=== PATIENT | male | born 1970 | race American Indian/Alaskan Native ===

== ENCOUNTER 2017-01-20 18:21 | Inpatient (IN) | payer OTHER ==
--- NOTE | 2017-01-20 19:00 | ED PDOC ---
Arrival/HPI - General Chief Complaint: Cough, Cold, Congestion Time Seen by Provider: 01/20/17 18:34 Historian: Patient, Family - History of Present Illness Narrative History of Present Illness (Text): 46yoM, who states having nasal congestion, cough w pleghm x2 days, then today with generalized chest pain with cough and now even chest pain without cough. associated sob. associated gradual headache similar to prior. no n/v/dizziness/ abd pain/numbness/tingling/loss of limb function/dysuria. denies HIV history. 01/20/17 18:57 01/20/17 20:11 Past Medical History - Provider Review Nursing Documentation Reviewed: Yes - Travel History Have you recently traveled outside [place] w/in the past 3 mons?: No - Infectious Disease Hx of Infectious Diseases: None - Cardiac Hx Hypertension: Yes - Psychiatric Hx Substance Use: No - Anesthesia Hx Anesthesia Reactions: No Family/Social History Family/Social History: No Known Family HX Smoking Status: Unknown If Ever Smoked Hx Alcohol Use: No Hx Substance Use: No Allergies/Home Meds Allergies/Adverse Reactions: Allergies hydrochlorothiazide Allergy (Verified 01/20/17 18:29) RASH Home Medications: Home Meds Medication Instructions Recorded Confirmed Lisinopril [Zestril] 10 mg PO DAILY 01/20/17 01/20/17 amLODIPine [Norvasc] 10 mg PO DAILY 01/20/17 01/20/17 Review of Systems - Review of Systems Constitutional: Normal Eyes: Normal ENT: Normal Respiratory: SOB, Cough Cardiovascular: Chest Pain Gastrointestinal: Normal Genitourinary Male: Normal Musculoskeletal: Normal Skin: Normal Neurological: Normal Endocrine: Normal Hemo/Lymphatic: Normal Psychiatric: Normal Physical Exam Vital Signs Reviewed: Yes Vital Signs Temp Pulse Resp BP Pulse Ox 01/20/17 20:46 115 H 23 186/120 H 91 L 01/20/17 18:28 98.2 F 100 H 18 202/140 H 90 L Temperature: Afebrile Blood Pressure: Hypertensive Pulse: Tachycardic Appearance: Positive for: Ill-Appearing Pain Distress: Mild Mental Status: Positive for: Alert and Oriented X 3 - Systems Exam Head: Present: Atraumatic Pupils: Present: PERRL Extroacular Muscles: Present: EOMI Conjunctiva: Present: Normal Ears: Present: Normal Mouth: Present: Moist Mucous Membranes Pharnyx: Present: Normal Nose (External): Present: Atraumatic Nose (Internal): Present: Normal Inspection, Clear Mucous Neck: Present: Normal Range of Motion Respiratory/Chest: Present: Good Air Exchange, Respiratory Distress Cardiovascular: Present: Regular Rate and Rhythm Abdomen: No: Tenderness, Distention, Normal Bowel Sounds, Peritoneal Signs, Rebound, Guarding, McBurney's Point Tender, Rovsing's Sign Present, Hernias, Feeding Tubes, Ostomy Tubes, Mass/Organomegaly, Scars, Other Back: Present: Normal Inspection Upper Extremity: Present: Normal Inspection Lower Extremity: Present: Normal Inspection Neurological: Present: GCS=15, CN II-XII Intact, Speech Normal, Motor Func Grossly Intact Skin: Present: Warm, Normal Color Psychiatric: Present: Alert, Oriented x 3, Normal Insight, Normal Concentration Medical Decision Making ED Course and Treatment: 01/20/17 19:31 46yoM, with right lung opacity and left lung vascular markings. sat 90% lactate 2.0 ECG: sinus tachycardia with PVCs, LVH and reviewed w Dr. Velez who agreed to acute sign of ST elevation. sepsis bundle zosyn/levaquin/lactated ringers 01/20/17 19:33 01/20/17 20:06 potassium 2.6 and potassium and magnesium given 01/20/17 20:19 trop 0.14 asprin 324mg 01/20/17 20:35 d/w Dr. Velez cardiology regarding 2900 bnp, trop 0.14, wbc 15.9, elevated LDH, and he stated asprin, plavix and full dose lovenox. he stated lvh strain related troponemia, with sepsis pneumonia - can admit with hospitalist, lasix as needed as pt is getting ivf hydration due to sepsis and cardiology consult. 01/20/17 20:42 pt sat's 90s and will trial bipap 01/20/17 21:27 CXR VRAD: b/l opacities/pneumonia. 01/20/17 21:28 pt improved on bipap. 01/20/17 21:50 d/w with medicine team - pt with sepsis related pneumonia, pt still with significant htn 210 systolic and arroyo tylenol given and will do ct head prior to further anticoagulation full dose lovenox and dose plavix. medicine team will fu on ct head/anticoagulation. 01/20/17 21:56 - Lab Interpretations Lab Results: 01/20/17 19:00 01/20/17 19:00 Lab Results 01/20/17 19:37: Urine Color Light yellow, Urine Appearance Clear, Urine pH 7.5, Ur Specific [place] 1.015, Urine Protein 30 H, Urine Glucose (UA) Negative, Urine Ketones Negative, Urine Blood Trace-lysed H, Urine Nitrate Negative, Urine Bilirubin Negative, Urine Urobilinogen 0.2, Ur Leukocyte Esterase Negative , Urine RBC 0 - 2, Urine WBC Negative, Ur Epithelial Cells 0 - 2, Urine Bacteria Neg 01/20/17 19:00: Influenza Typ A,B (EIA) Negative for flu a/b 01/20/17 19:00: Sodium 139, Chloride 98, Potassium 2.6 L*, Carbon Dioxide 30, Anion Gap 14, BUN 23 H, Creatinine 1.5, Est GFR ( Amer) > 60, Est GFR ( Non-Af Amer) 50, Random Glucose 111 H, Calcium 9.3, Magnesium 1.7, Total Bilirubin 0.8, AST 40, ALT 41, Alkaline Phosphatase 83, Lactate Dehydrogenase 810 H, Total Creatine Kinase 379 H, CK-MB (CK-2) 1.7, CK-MB (CK-2) % Cancelled, Troponin I 0.14 H*, NT-Pro-B Natriuret Pep 2960 H, Total Protein 7.4, Albumin 4.1, Globulin 3.3, Albumin/Globulin Ratio 1.2 01/20/17 19:00: PT 12.1, INR 1.11 H, APTT 28.5 01/20/17 19:00: WBC 15.9 H, RBC 5.02, Hgb 14.0, Hct 41.4 L, MCV 82.5, MCH 27.9, MCHC 33.8, RDW 14.8 H, Plt Count 119 L, Gran % 79.0 H, Lymph % (Auto) 13.2 L, [place] % (Auto) 6.9 H, Eos % (Auto) 0.6 L, Baso % (Auto) 0.3, Gran # 12.59 H, Lymph # 2.1, [place] # 1.1 H, Eos # 0.1, Baso # 0.05 01/20/17 18:59: pO2 43, VBG pH 7.46 H, VBG pCO2 49.0, VBG HCO3 34.8 H, VBG Total CO2 36.3 H, VBG O2 Sat (Calc) 83.4 H, VBG Base Excess 9.4 H, VBG Potassium 2.4 L*, Sodium 139.0, Chloride 98.0, Glucose 112 H, Lactate 2.0, FiO2 21.0, Venous Blood Potassium 2.4 L* - RAD Interpretation Narrative RAD Interpretations (Text): CXR with right lung opacity and left lung markings. 01/20/17 19:34 Radiology Orders: 01/20/17 18:54 CHEST ONE VIEW [RAD] Stat 01/20/17 18:56 CHEST PORTABLE [RAD] Stat 01/20/17 21:49 HEAD W/O CONTRAST [CT] Stat Coil Winding Supervisor: ED Physician - EKG Interpretation EKG Interpretation (Text): 01/20/17 19:34 ECG: sinus tachycardia with PVCs, LVH and reviewed w Dr. Velez who agreed to acute sign of ST elevation. Interpreted by ED Physician: Yes - Medication Orders Current Medication Orders: Lactated Ringer's (Lactated Ringer's) 1,000 mls @ 999 mls/hr IV .Q1H1M MADELEINE Last Admin: 01/20/17 19:46 Dose: Discontinued Medications Acetaminophen (Tylenol 325mg Tab) 975 mg PO STAT STA Stop: 01/20/17 20:10 Last Admin: 01/20/17 20:18 Dose: 975 mg MAR Pain/Vitals Document 01/20/17 20:18 SE (Rec: 01/20/17 20:18 [id number]) Pain Reassessment Is This A Pain ReAssessment? No Sleep Is patient sleeping during reassessment? No Presence of Pain Presence of Pain Yes Pain Scale Used Pain Scale Used Numeric Location Pain Location Body Offset Printer Albuterol/Ipratropium (Duoneb 3 Mg/0.5 Mg (3 Ml) Ud) 3 ml IH STAT STA Stop: 01/20/17 20:11 Last Admin: 01/20/17 20:19 Dose: 3 ml Aspirin (Aspirin Chewable) 324 mg PO STAT STA Stop: 01/20/17 20:17 Last Admin: 01/20/17 20:25 Dose: 324 mg Piperacillin Sod/Tazobactam Sod (Zosyn 4.5 Gm In Ns 100ml) 4.5 gm in 100 mls @ 200 mls/hr IVPB STAT STA PRN Reason: Protocol Stop: 01/20/17 19:58 Last Admin: 01/20/17 19:40 Dose: 200 mls/hr eMAR Start Stop Document 01/20/17 19:40 SE (Rec: 01/20/17 19:40 SE [id number]) Intravenous Solution Start Date 01/20/17 Start Time 19:40 End Date 01/20/17 End time 20:10 Total Infusion Time 30 Sodium Chloride (Sodium Chloride 0.9%) 1,000 mls @ 999 mls/hr IV .Q1H1M STA Stop: 01/20/17 20:47 Last Admin: 01/20/17 19:48 Dose: 999 mls/hr eMAR Start Stop Document 01/20/17 19:48 SE (Rec: 01/20/17 19:48 SE [id number]) Intravenous Solution Start Date 01/20/17 Start Time 19:48 Magnesium Sulfate/Dextrose (Magnesium Sulfate 1 Gm/100 Ml D5w) 1 gm in 100 mls @ 100 mls/hr IVPB ONCE ONE Stop: 01/20/17 21:04 Last Admin: 01/20/17 20:19 Dose: 100 mls/hr eMAR Start Stop Document 01/20/17 20:19 SE (Rec: 01/20/17 20:19 SE [id number]) Intravenous Solution Start Date 01/20/17 Start Time 20:19 Levofloxacin/Dextrose (Levaquin 750mg) 750 mg IVPB ONCE ONE Stop: 01/20/17 19:30 Last Admin: 01/20/17 21:01 Dose: 750 mg Comments: [facility] Start Stop Document 01/20/17 21:01 SE (Rec: 01/20/17 21:02 SE [id number]) Intravenous Solution Start Date 01/20/17 Start Time 21:02 Potassium Chloride (K-Dur 20 Meq Er Tab) 40 meq PO STAT STA Stop: 01/20/17 20:06 Last Admin: 01/20/17 20:18 Dose: 40 meq Disposition/Present on Arrival - Present on Arrival Any Indicators Present on Arrival: Yes History of DVT/PE: No History of Uncontrolled Diabetes: No Urinary Catheter: No History of Decub. Ulcer: No History Surgical Site Infection Following: None - Disposition Have Diagnosis and Disposition been Completed?: Yes Diagnosis: Sepsis due to pneumonia Disposition: HOSPITALIZED Disposition Time: 22:00 Patient Plan: Admission, Telemetry Condition: SERIOUS Discharge Instructions (ExitCare): Sepsis (ED) Forms: Measy (Iranian)
[2017-01-20 19:27] LABS: VENOUS BLOOD GAS BASE EXCESS 9.4 mmol/L (0.0-2.0); VENOUS BLOOD PH 7.46 (7.32-7.43)
[2017-01-20] MEDS ORDERED: Piperacill/Tazo 4.5gm in NS 4.5 GM/100 ML BAG IVPB STA (19:29)
[2017-01-20] MEDS ORDERED: Lactated Ringer's 1,000 ML IV SCH (19:30)
[2017-01-20 19:33] LABS: BASO # 0.05 K/mm3 (0.0-2.0); BASO % 0.3 % (0.0-3.0); EOS # 0.1 (0.0-0.7); EOS % 0.6 % (1.5-5.0); GRAN # 12.59 (1.4-6.5); HEMATOCRIT 41.4 % (42.0-52.0); LYMPH # 2.1 (1.2-3.4); LYMPH % 13.2 % (22.0-35.0); MEAN CELL VOLUME 82.5 fl (80.0-105.0); MEAN CORPUSCULAR HEMOGLOBIN 27.9 pg (25.0-35.0); MEAN CORPUSCULAR HGB CONC 33.8 g/dl (31.0-37.0); MONO # 1.1 (0.1-0.6); MONO % 6.9 % (1.0-6.0); PLATELET COUNT 119 10^3/uL (120.0-450.0); RED CELL DISTRIBUTION WIDTH 14.8 % (11.5-14.5); WHITE BLOOD COUNT 15.9 10^3/ul (4.5-11.0)
[2017-01-20 19:40] LABS: INR 1.11 (0.93-1.08); PARTIAL THROMBOPLASTIN TIME 28.5 Seconds (25.1-36.5)
[2017-01-20 19:47] LABS: PH,URINE 7.5 (4.7-8.0); URINE BILIRUBIN NEGATIVE (NEGATIVE); URINE BLOOD TRACE-LYSED (NEGATIVE); URINE GLUCOSE (UA) NEGATIVE (NEGATIVE); URINE KETONE NEGATIVE (NEGATIVE); URINE LEUKOCYTE ESTERASE NEGATIVE Leu/uL (NEGATIVE); URINE PROTEIN 30 mg/dL (<30 mg/dL); URINE UROBILINOGEN 0.2 E.U./dL (<1 E.U./dL)
[2017-01-20] MEDS ORDERED: Sodium Chloride 0.9% 1,000 ML IV STA (19:47)
[2017-01-20 19:53] LABS: ALB/GLOB RATIO 1.2 (1.1-1.8); ALKALINE PHOSPHATASE 83 U/L (38-126); ALT/SGPT 41 U/L (7-56); AST/SGOT 40 U/L (17-59); BILIRUBIN,TOTAL 0.8 mg/dL (0.2-1.3); BLOOD UREA NITROGEN 23 mg/dL (7-21); CALCIUM 9.3 mg/dL (8.4-10.5); CARBON DIOXIDE 30 mmol/L (21-33); CHLORIDE 98 mmol/L (98-107); GFR AFRICAN-AMERICAN > 60; GLUCOSE,RANDOM 111 mg/dL (70-110); MAGNESIUM 1.7 mg/dL (1.7-2.2); POTASSIUM 2.6 mmol/L (3.6-5.0); SODIUM 139 mmol/L (132-148); TOTAL PROTEIN 7.4 g/dL (5.8-8.3)
[2017-01-20 19:55] LABS: URINE APPEARANCE CLEAR (CLEAR); URINE COLOR LIGHT YELLOW (YELLOW)
[2017-01-20 19:57] LABS: URINE BACTERIA NEG (NEG); URINE EPITHELIAL CELLS 0 - 2 /hpf (0-5); URINE RBC 0 - 2 /hpf (0-2); URINE WBC NEGATIVE /hpf (0-6)
[2017-01-20] MEDS ORDERED: Magnesium Sulfate 1 gm in D5W 1 GM/100 ML BAG IVPB ONE (20:05)
[2017-01-20] MEDS ORDERED: Potassium Chloride 20 mEq ER Tab PO STA (20:05)
[2017-01-20] MEDS ORDERED: Albuterol-Ipratrop 3 mg / 0.5 (3 ml) UD IH STA (20:10)
[2017-01-20 20:14] LABS: TROPONIN I 0.14 ng/mL
[2017-01-20] MEDS: levoFLOXacin 750 mg in D5W 150 ML BAG IVPB ONE ×2 (20:26→21:01)
--- NOTE | 2017-01-20 20:55 | RAD ---
EXAM: XR Chest, 2 Views CLINICAL HISTORY: 46 years old, male; Signs and symptoms; Cough; Symptoms not specified; Additional info: 46yom, with chest pain TECHNIQUE: Frontal and lateral views of the chest. COMPARISON: No relevant prior studies available. FINDINGS: Limitations: Radiographic technique - mild. Lungs: Extensive alveolar opacities within lung bases. Pleural space: No definite pleural effusion. No pneumothorax. Heart: Mild cardiomegaly. Mediastinum: Prominence of central pulmonary vasculature. Bones/joints: No acute fracture. Tubes, lines and devices: Leads overlying chest. IMPRESSION: 1. Bibasilar opacities. DDX: Pneumonia, aspiration, hemorrhage, dependent edema. Clinical correlation is needed.
--- NOTE | 2017-01-20 22:21 | CP.PCM.HP ---
<Lino Mcclain - Last Filed: 01/20/17 21:57> History of Present Illness - History of Present Illness History of Present Illness: CC: cough with chest pain Subjective: HPI: Patient is a 46yo male who presents to the emergency department via EMS for evaluation and treatment of nasal congestion, production cough with pleghm which began 2 days ago without any provoking event. Symptoms worsened since onset despite OTC mucinex. Devleloped generalized, nonradiating chest pain with cough and associated sob. Also admits to gradual headache localized to the crown , rated 8/10, dull in nature. States that he experiences these headaches similar in the past. Denies sick contacts. Traveled from [place] for work 2 weeks ago. Forgot antihypertensive meds at home and has not taken them since arriving to [place]. Patient denies fever, chills, dizziness, blurry vision , ringing in the ears, abdominal pain, nausea, vomiting, diarrhea, constipation , and urinary symptoms. ROS: 12 point review of systems negative except as indicated in HPI PMHx: hypertension PSHx: none Family Hx: mother- breast cancer, father- "throat cancer" Social Hx: social ETOH use, former tobacco use quit 20 years ago smoked 1/2 ppd for years, former illicit drug use- marijuana and cocaine in the 1980s quit since then Medications: lisinopril and amlodipine PMD: from [facility] does not have local PMD Pharmacy: from [facility] does not have local pharmacy Physical Examination: - Constitutional Appears: Non-toxic, No Acute Distress - Head Exam Head Exam: atraumatic, normocephalic - Eye Exam Eye Exam: Normal appearance, PERRL. absent: Scleral icterus - ENT Exam ENT Exam: Mucous Membranes Moist - Neck Exam Neck exam: indentation from pervious trachestomy - Respiratory Exam Respiratory Exam: Normal Breathing Pattern, bibasilar crackles - Cardiovascular Exam Cardiovascular Exam: tachycardic, +S1, +S2. absent: Gallop, JVD - GI/Abdominal Exam GI & Abdominal Exam: Normal Bowel Sounds, absent: Distended, Guarding, Pulsatile Mass, Rebound, Rigid - Extremities Exam Extremities exam: no edema; Negative for: calf tenderness - Neurological Exam Neurological exam: Patient is awake, alert, responds to verbal stimuli, answers questions appropriately, follows commands, and moves extremities past midline - Psychiatric Exam Psychiatric exam: Normal Affect, Normal Mood - Skin Skin Exam: warm and dry Assessment and Plan: Patient is a 46yo male who presents to the emergency department via EMS for evaluation and treatment of nasal congestion, production cough with pleghm which began 2 days ago without any provoking event. Hypertensive Emergency - BP and HR reviewed, trended, and appreciated - patient started on cardene drip, goal is reduce BP by 25% in the first 6 hours , lower limit SBP 160mmHG Chest Pain - rule out ACS - EKG reviewed and appreciated - t wave inversions in the lateral leads - cardiac enzymes q8h x 3, first troponins are 0.14- as per ED physician Dr. Velez was contacted to review patient EKG- the abnormality in the precordial leads is secondary to ventricular strain in the setting of sepsis - lipid profile and A1C pending - ECHO pending - cardiology consulted- appreciate recommendations-as per ED physician Dr. Velez recommended full dose aspirin (given in ED), full dose plavix, and therapuetic lovenox- plavix and lovenox to be given in CT head comes back negative Sepsis; Pneumonia - greater than 2/4 SIRS criteria met in setting of infectious source ( elevated WBC and HR > 90) - CXR- showing bibasilar opacity - blood cultures x 2 - sputum culture - atypicals ordered- strep pneumonia, mycoplasma, and legionella - levaquin and zosyn given in ED, will start patient on doxy and ceftriaxone for CAP coverage - 1 liter NS and 1 Liter LR given in ED, no need for maintanience fluids at this time (elevated BNP taken into account and elevated BP taken into account) - infectious disease consulted- appreciate recommendations Headache - 2/2 elevated BP - prn tylenol ordered - head CT- no acute intracranial abnormalities MARY - BUN and creatinine noted and appreciated - likely 2/2 hypertensive state - no IVF at this time- will monitor closely - consider nephrology consult pending patients clinical course Electrolyte Abnormality - hypokalemia- repleted and monitor closely via CMP - mag ordered Prophylaxis - DVT ppx- patient is on lovenox - GI ppx- famotidine Patient case discussed with and plan approved by attending physician. 01/20/17 21:57 Present on Admission - Present on Admission Any Indicators Present on Admission: No Past Patient History - Infectious Disease Hx of Infectious Diseases: None - Past Social History Smoking Status: Unknown If Ever Smoked - CARDIAC Hx Hypertension: Yes - PSYCHIATRIC Hx Substance Use: No - SURGICAL HISTORY Hx Surgeries: No - ANESTHESIA Hx Anesthesia Reactions: No Meds Allergies/Adverse Reactions: Allergies Allergy/AdvReac Type Severity Reaction Status Date / Time hydrochlorothiazide Allergy RASH Verified 01/20/17 18:29 Results - Vital Signs Recent Vital Signs: Last Vital Signs Temp 98.2 F 01/20/17 18:28 Pulse 115 H 01/20/17 20:46 Resp 23 01/20/17 20:46 BP 186/120 H 01/20/17 20:46 Pulse Ox 91 L 01/20/17 20:46 - Labs Result Diagrams: 01/20/17 19:00 01/20/17 19:00 Labs: Laboratory Results - last 24 hr 01/20/17 01/20/17 01/20/17 18:59 19:00 19:00 WBC 15.9 H RBC 5.02 Hgb 14.0 Hct 41.4 L MCV 82.5 MCH 27.9 MCHC 33.8 RDW 14.8 H Plt Count 119 L Gran % 79.0 H Lymph % (Auto) 13.2 L [place] % (Auto) 6.9 H Eos % (Auto) 0.6 L Baso % (Auto) 0.3 Gran # 12.59 H Lymph # 2.1 [place] # 1.1 H Eos # 0.1 Baso # 0.05 PT 12.1 INR 1.11 H APTT 28.5 pO2 43 VBG pH 7.46 H VBG pCO2 49.0 VBG HCO3 34.8 H VBG Total CO2 36.3 H VBG O2 Sat (Calc) 83.4 H VBG Base Excess 9.4 H VBG Potassium 2.4 L* Sodium 139.0 Chloride 98.0 Glucose 112 H Lactate 2.0 FiO2 21.0 Potassium Carbon Dioxide Anion Gap BUN Creatinine Est GFR ( Amer) Est GFR (Non-Af Amer) Random Glucose Calcium Magnesium Total Bilirubin AST ALT Alkaline Phosphatase Lactate Dehydrogenase Total Creatine Kinase CK-MB (CK-2) CK-MB (CK-2) % Troponin I NT-Pro-B Natriuret Pep Total Protein Albumin Globulin Albumin/Globulin Ratio Venous Blood Potassium 2.4 L* Urine Color Urine Appearance Urine pH Ur Specific [place] Urine Protein Urine Glucose (UA) Urine Ketones Urine Blood Urine Nitrate Urine Bilirubin Urine Urobilinogen Ur Leukocyte Esterase Urine RBC Urine WBC Ur Epithelial Cells Urine Bacteria Influenza Typ A,B (EIA) 01/20/17 01/20/17 01/20/17 19:00 19:00 19:37 WBC RBC Hgb Hct MCV MCH MCHC RDW Plt Count Gran % Lymph % (Auto) [place] % (Auto) Eos % (Auto) Baso % (Auto) Gran # Lymph # [place] # Eos # Baso # PT INR APTT pO2 VBG pH VBG pCO2 VBG HCO3 VBG Total CO2 VBG O2 Sat (Calc) VBG Base Excess VBG Potassium Sodium 139 Chloride 98 Glucose Lactate FiO2 Potassium 2.6 L* Carbon Dioxide 30 Anion Gap 14 BUN 23 H Creatinine 1.5 Est GFR ( Amer) > 60 Est GFR (Non-Af Amer) 50 Random Glucose 111 H Calcium 9.3 Magnesium 1.7 Total Bilirubin 0.8 AST 40 ALT 41 Alkaline Phosphatase 83 Lactate Dehydrogenase 810 H Total Creatine Kinase 379 H CK-MB (CK-2) 1.7 CK-MB (CK-2) % Cancelled Troponin I 0.14 H* NT-Pro-B Natriuret Pep 2960 H Total Protein 7.4 Albumin 4.1 Globulin 3.3 Albumin/Globulin Ratio 1.2 Venous Blood Potassium Urine Color Light yellow Urine Appearance Clear Urine pH 7.5 Ur Specific [place] 1.015 Urine Protein 30 H Urine Glucose (UA) Negative Urine Ketones Negative Urine Blood Trace-lysed H Urine Nitrate Negative Urine Bilirubin Negative Urine Urobilinogen 0.2 Ur Leukocyte Esterase Negative Urine RBC 0 - 2 Urine WBC Negative Ur Epithelial Cells 0 - 2 Urine Bacteria Neg Influenza Typ A,B (EIA) Negative for flu a/b <Remi Dolan Q - Last Filed: 01/21/17 06:03> Results - Vital Signs Recent Vital Signs: Last Vital Signs Temp 99.4 F 01/21/17 04:00 Pulse 88 01/21/17 04:50 Resp 22 01/21/17 04:50 BP 149/97 H 01/21/17 04:00 Pulse Ox 97 01/21/17 04:50 - Labs Result Diagrams: 01/20/17 19:00 01/20/17 19:00 Labs: Laboratory Results - last 24 hr 01/20/17 01/21/17 23:30 01:15 pO2 224 H VBG pH 7.49 H VBG pCO2 41.0 VBG HCO3 31.2 H VBG Total CO2 32.5 H VBG O2 Sat (Calc) 100.0 H VBG Base Excess 7.2 H VBG Potassium 2.3 L* Sodium 138.0 Chloride 102.0 Glucose 114 H Lactate 1.5 FiO2 21.0 Lactate Dehydrogenase 616 Total Creatine Kinase 347 H CK-MB (CK-2) 1.3 CK-MB (CK-2) % Cancelled Troponin I 0.17 H* D Venous Blood Potassium 2.3 L* Attending/Attestation - Attestation I have personally seen and examined this patient.: Yes I have fully participated in the care of the patient.: Yes I have reviewed all pertinent clinical information: Yes Notes (Text): 01/21/17 05:57 I agree with the above mentioned note and exam by the resident with the addition /exception of the followin46 y/o male with a PMHx Htn presents to the ED with the complaint of 2-3 days of cold-like symptoms which have led to a worsening headache today. Patient found to be in hypertensive urgency/emergency as well as sepsis secondary to CAP. Admitted to the ICU for close blood pressure monitoring while on a cardene drip, IV Abx with a workup for pneumonia. Patient was also treated aggressively in the ED with IVF, as a possible code sepsis patient. Elevated trop levels with asymetric inverted T-waves on EKG showing strain pattern; Cardiology on board recommending TAC. Patient was also initially placed on Bipap in the ED, however was able to tolerate nasal cannula after our examination. case discussed at length with Dr. Rosario in the ED labs and images available to me reviewed total time of care: 50 minutes
--- NOTE | 2017-01-20 22:24 | CT ---
EXAM: CT Head Without Intravenous Contrast CLINICAL HISTORY: 46 years old, male; Pain; Headache; Tension; Additional info: 46yom, C/O of headache. TECHNIQUE: Axial computed tomography images of the head/brain without intravenous contrast. All CT scans at this facility use one or more dose reduction techniques, viz.: automated exposure control; ma/kV adjustment per patient size (including targeted exams where dose is matched to indication; i.e. head); or iterative reconstruction technique. COMPARISON: No relevant prior studies available. FINDINGS: Brain: No intracranial hemorrhage. No mass. No definite edema. Ventricles: No hydrocephalus. Bones/joints: No acute fracture. Soft tissues: Unremarkable. Sinuses: Scattered minimal mucosal thickening. Mastoid air cells: No mastoid effusion. Orbits: Unremarkable as visualized. IMPRESSION: 1. No acute intracranial abnormality. 2. Incidental/non-acute findings are described above.
[2017-01-20] MEDS ORDERED: Enoxaparin 80 mg Syringe SC STA (23:08)
[2017-01-20] MEDS: Nicardipine 20 MG/200 ML 20 MG/200 ML BAG IV PRN (23:09)
[2017-01-20 23:22] LABS: CHOLESTEROL 186 mg/dL (130-200)
[2017-01-20] MEDS ORDERED: Potassium Chloride 40 mEq/30 ml LIQ UD PO ONE (23:23)
[2017-01-20 23:44] LABS: VENOUS BLOOD GAS BASE EXCESS 7.2 mmol/L (0.0-2.0); VENOUS BLOOD PH 7.49 (7.32-7.43)
[2017-01-21 01:40] VITALS: BMI 25.7
[2017-01-21 01:56] LABS: TROPONIN I 0.17 ng/mL
[2017-01-21] MEDS: Nicardipine 20 MG/200 ML 20 MG/200 ML BAG IV PRN (03:00)
[2017-01-21 06:04] LABS: BASO # 0.02 K/mm3 (0.0-2.0); BASO % 0.2 % (0.0-3.0); EOS % 0.2 % (1.5-5.0); GRAN # 9.61 (1.4-6.5); GRAN % 75.5 % (50.0-68.0); HEMATOCRIT 39.2 % (42.0-52.0); LYMPH # 2.1 (1.2-3.4); LYMPH % 16.6 % (22.0-35.0); MEAN CELL VOLUME 82.2 fl (80.0-105.0); MEAN CORPUSCULAR HEMOGLOBIN 28.1 pg (25.0-35.0); MEAN CORPUSCULAR HGB CONC 34.2 g/dl (31.0-37.0); MONO % 7.5 % (1.0-6.0); PLATELET COUNT 128 10^3/uL (120.0-450.0); RED CELL DISTRIBUTION WIDTH 14.9 % (11.5-14.5); WHITE BLOOD COUNT 12.7 10^3/ul (4.5-11.0)
[2017-01-21] MEDS ORDERED: Vancomycin 1gm in NS 250ml 1 GM/250 ML BAG IVPB STA (06:44)
[2017-01-21 06:57] LABS: ALB/GLOB RATIO 1.2 (1.1-1.8); ALKALINE PHOSPHATASE 80 U/L (38-126); ALT/SGPT 29 U/L (7-56); AST/SGOT 27 U/L (17-59); BLOOD UREA NITROGEN 17 mg/dL (7-21); CALCIUM 8.6 mg/dL (8.4-10.5); CARBON DIOXIDE 30 mmol/L (21-33); CHLORIDE 101 mmol/L (98-107); GFR AFRICAN-AMERICAN > 60; GLUCOSE,RANDOM 117 mg/dL (70-110); MAGNESIUM 1.9 mg/dL (1.7-2.2); POTASSIUM 2.5 mmol/L (3.6-5.0); SODIUM 138 mmol/L (132-148); TOTAL PROTEIN 6.9 g/dL (5.8-8.3); TROPONIN I 0.13 ng/mL
--- NOTE | 2017-01-21 07:15 | CP.CCUPN ---
<Noam Yungy - Last Filed: 01/21/17 11:59> CCU Subjective - Physician Review Subjective (Free Text): Critical Care Progress Note for Dr. Vázquez Patient seen and examined at bedside. No acute overnight. Patient is doing well. Eating heart healthy diet this morning. Patient complaining of dry throat and dry cough on deep inhalation. Patient denies fever/chills, nausea/vomiting, chest pain, shortness of breath, abdominal pain. CCU Objective - Vital Signs / Intake & Output Vital Signs (Last 4 hours): Vital Signs Temp Pulse Resp BP Pulse Ox 01/21/17 07:00 88 24 149/98 H 93 L 01/21/17 06:50 94 H 20 93 L 01/21/17 06:40 91 H 23 93 L 01/21/17 06:30 90 21 94 L 01/21/17 06:20 89 20 97 01/21/17 06:10 94 H 29 H 92 L 01/21/17 06:00 93 H 25 H 150/75 93 L 01/21/17 05:50 87 29 H 94 L 01/21/17 05:40 88 25 H 95 01/21/17 05:30 90 25 H 93 L 01/21/17 05:20 91 H 21 94 L 01/21/17 05:10 91 H 26 H 96 01/21/17 05:00 90 153/108 H 96 01/21/17 04:50 88 22 97 01/21/17 04:40 88 27 H 98 01/21/17 04:30 89 23 96 01/21/17 04:20 90 19 97 01/21/17 04:10 88 26 H 95 01/21/17 04:00 99.4 F 88 25 H 149/97 H 94 L 01/21/17 03:50 87 25 H 94 L 01/21/17 03:40 91 H 25 H 95 01/21/17 03:30 91 H 23 96 01/21/17 03:20 91 H 23 96 Intake and Output (Last 8hrs): Intake & Output 01/20/17 01/21/17 01/21/17 22:59 06:59 14:59 Intake Total 200 1510 Output Total 1100 Balance 200 410 Weight 174 lb 1.6 oz 174 lb 9.6 oz Intake: IV 200 1360 Left Forearm 1360 Oral 150 Output: Urine 1100 Urine, Voided 1100 Other: # Bowel Movements 0 - Physical Exam Physical Exam Limitations: Negative for: Altered Mental Status Head: Positive for: Atraumatic, Normocephalic Pupils: Positive for: PERRL Extroacular Muscles: Positive for: EOMI Conjunctiva: Positive for: Normal Ears: Positive for: Normal Pharnyx: Positive for: Normal Nose (External): Positive for: Atraumatic Nose (Internal): Positive for: Normal Inspection, Clear Mucous Neck: Positive for: Normal Range of Motion Respiratory/Chest: Positive for: Good Air Exchange, Respiratory Distress Cardiovascular: Positive for: Regular Rate and Rhythm, Normal S1, S2 Abdomen: Negative for: Tenderness, Distention, Normal Bowel Sounds, Peritoneal Signs, Rebound, Guarding, McBurney's Point Tender, Rovsing's Sign Present, Hernias, Feeding Tubes, Ostomy Tubes, Mass/Organomegaly, Scars, Other Back: Positive for: Normal Inspection Upper Extremity: Positive for: Normal Inspection. Negative for: Cyanosis Lower Extremity: Positive for: Normal Inspection. Negative for: Edema, CALF TENDERNESS Neurological: Positive for: GCS=15, CN II-XII Intact, Speech Normal, Motor Func Grossly Intact Skin: Positive for: Warm, Normal Color Psychiatric: Positive for: Alert, Oriented x 3, Normal Insight, Normal Concentration - Medications Active Medications: Active Medications Generic Name Dose Route Start Last Admin Trade Name Freq PRN Reason Stop Dose Admin Acetaminophen 650 mg 01/20/17 23:22 Tylenol 325mg Tab PO Q4 PRN Pain, moderate (4-7) Aspirin 81 mg 01/21/17 10:00 Ecotrin PO DAILY [facility] Doxycycline Hyclate 100 mg 01/21/17 10:00 Doryx PO Q12 [facility] Protocol Famotidine 20 mg 01/21/17 10:00 Pepcid IVP DAILY [facility] Lactated Ringer's 1,000 mls @ 999 mls/hr 01/20/17 19:30 01/20/17 19:46 Lactated Ringer's IV Not Given .Q1H1M [facility] Nicardipine HCl 20 mg in 200 mls @ 50 mls/hr 01/20/17 22:59 01/21/17 03:00 Cardene Iv Premix IV 1.25 mg/hr .Q4H PRN 12.5 mls/hr TITRATE PER MD ORDER Administration Protocol 5 MG/HR Cefepime HCl 2 gm in 100 mls @ 100 mls/hr 01/21/17 10:00 Maxipime 2gm IVPB 01/26/17 10:01 Q12 [facility] Protocol Vancomycin HCl 1 gm in 250 mls @ 167 mls/hr 01/21/17 06:44 Vancomycin 1gm IVPB 01/21/17 08:13 STAT STA Protocol Potassium Chloride 20 meq in 100 mls @ 50 mls/hr 01/21/17 07:00 Potassium Chloride 20 Meq/100 Ml IVPB 01/21/17 10:59 Q2H [facility] Potassium Chloride 40 meq 01/21/17 07:00 K-Dur 20 Meq Er Tab PO 01/21/17 09:01 Q2H [facility] - Patient Studies Lab Studies: Lab Studies 01/21/17 01/21/17 01/21/17 Range/Units 05:50 05:50 01:15 WBC 12.7 H D (4.5-11.0) 10^3/ul RBC 4.77 (3.5-6.1) 10^6/uL Hgb 13.4 L (14.0-18.0) g/dL Hct 39.2 L (42.0-52.0) % MCV 82.2 (80.0-105.0) fl MCH 28.1 (25.0-35.0) pg MCHC 34.2 (31.0-37.0) g/dl RDW 14.9 H (11.5-14.5) % Plt Count 128 (120.0-450.0) 10^3/uL Gran % 75.5 H (50.0-68.0) % Lymph % (Auto) 16.6 L (22.0-35.0) % [place] % (Auto) 7.5 H (1.0-6.0) % Eos % (Auto) 0.2 L (1.5-5.0) % Baso % (Auto) 0.2 (0.0-3.0) % Gran # 9.61 H (1.4-6.5) Lymph # 2.1 (1.2-3.4) [place] # 1.0 H (0.1-0.6) Eos # 0.0 (0.0-0.7) Baso # 0.02 (0.0-2.0) K/mm3 pO2 (30-55) mm/Hg VBG pH (7.32-7.43) VBG pCO2 (40-60) VBG HCO3 (21-28) mmol/l VBG Total CO2 (22-28) mmol.L VBG O2 Sat (Calc) (40-65) % VBG Base Excess (0.0-2.0) mmol/L VBG Potassium (3.6-5.2) mmol/L Sodium 138 (132-148) mmol/L Chloride 101 (98-107) mmol/L Glucose (75-110) mg/dl Lactate (0.7-2.1) mmol/L FiO2 % Potassium 2.5 L* (3.6-5.0) mmol/L Carbon Dioxide 30 (21-33) mmol/L Anion Gap 10 (10-20) BUN 17 (7-21) mg/dL Creatinine 1.5 (0.8-1.5) mg/dl Est GFR ( Amer) > 60 Est GFR (Non-Af Amer) 50 Random Glucose 117 H (70-110) mg/dL Calcium 8.6 (8.4-10.5) mg/dL Magnesium 1.9 (1.7-2.2) mg/dL Total Bilirubin 1.0 (0.2-1.3) mg/dL AST 27 (17-59) U/L ALT 29 (7-56) U/L Alkaline Phosphatase 80 (38-126) U/L Lactate Dehydrogenase 610 616 (333-699) U/L Total Creatine Kinase 296 H 347 H (35-230) U/L CK-MB (CK-2) 1.2 1.3 (0.0-3.6) ng/mL CK-MB (CK-2) % Cancelled Cancelled Troponin I 0.13 H* D 0.17 H* D ng/mL Total Protein 6.9 (5.8-8.3) g/dL Albumin 3.7 (3.0-4.8) g/dL Globulin 3.2 gm/dL Albumin/Globulin Ratio 1.2 (1.1-1.8) Venous Blood Potassium (3.6-5.2) mmol/L 01/20/17 Range/Units 23:30 WBC (4.5-11.0) 10^3/ul RBC (3.5-6.1) 10^6/uL Hgb (14.0-18.0) g/dL Hct (42.0-52.0) % MCV (80.0-105.0) fl MCH (25.0-35.0) pg MCHC (31.0-37.0) g/dl RDW (11.5-14.5) % Plt Count (120.0-450.0) 10^3/uL Gran % (50.0-68.0) % Lymph % (Auto) (22.0-35.0) % [place] % (Auto) (1.0-6.0) % Eos % (Auto) (1.5-5.0) % Baso % (Auto) (0.0-3.0) % Gran # (1.4-6.5) Lymph # (1.2-3.4) [place] # (0.1-0.6) Eos # (0.0-0.7) Baso # (0.0-2.0) K/mm3 pO2 224 H (30-55) mm/Hg VBG pH 7.49 H (7.32-7.43) VBG pCO2 41.0 (40-60) VBG HCO3 31.2 H (21-28) mmol/l VBG Total CO2 32.5 H (22-28) mmol.L VBG O2 Sat (Calc) 100.0 H (40-65) % VBG Base Excess 7.2 H (0.0-2.0) mmol/L VBG Potassium 2.3 L* (3.6-5.2) mmol/L Sodium 138.0 (132-148) mmol/L Chloride 102.0 (98-107) mmol/L Glucose 114 H (75-110) mg/dl Lactate 1.5 (0.7-2.1) mmol/L FiO2 21.0 % Potassium (3.6-5.0) mmol/L Carbon Dioxide (21-33) mmol/L Anion Gap (10-20) BUN (7-21) mg/dL Creatinine (0.8-1.5) mg/dl Est GFR ( Amer) Est GFR (Non-Af Amer) Random Glucose (70-110) mg/dL Calcium (8.4-10.5) mg/dL Magnesium (1.7-2.2) mg/dL Total Bilirubin (0.2-1.3) mg/dL AST (17-59) U/L ALT (7-56) U/L Alkaline Phosphatase (38-126) U/L Lactate Dehydrogenase (333-699) U/L Total Creatine Kinase (35-230) U/L CK-MB (CK-2) (0.0-3.6) ng/mL CK-MB (CK-2) % Troponin I ng/mL Total Protein (5.8-8.3) g/dL Albumin (3.0-4.8) g/dL Globulin gm/dL Albumin/Globulin Ratio (1.1-1.8) Venous Blood Potassium 2.3 L* (3.6-5.2) mmol/L Laboratory Results - last 24 hr 01/20/17 01/21/17 01/21/17 23:30 01:15 05:50 WBC 12.7 H D RBC 4.77 Hgb 13.4 L Hct 39.2 L MCV 82.2 MCH 28.1 MCHC 34.2 RDW 14.9 H Plt Count 128 Gran % 75.5 H Lymph % (Auto) 16.6 L [place] % (Auto) 7.5 H Eos % (Auto) 0.2 L Baso % (Auto) 0.2 Gran # 9.61 H Lymph # 2.1 [place] # 1.0 H Eos # 0.0 Baso # 0.02 pO2 224 H VBG pH 7.49 H VBG pCO2 41.0 VBG HCO3 31.2 H VBG Total CO2 32.5 H VBG O2 Sat (Calc) 100.0 H VBG Base Excess 7.2 H VBG Potassium 2.3 L* Sodium 138.0 Chloride 102.0 Glucose 114 H Lactate 1.5 FiO2 21.0 Potassium Carbon Dioxide Anion Gap BUN Creatinine Est GFR ( Amer) Est GFR (Non-Af Amer) Random Glucose Calcium Magnesium Total Bilirubin AST ALT Alkaline Phosphatase Lactate Dehydrogenase 616 Total Creatine Kinase 347 H CK-MB (CK-2) 1.3 CK-MB (CK-2) % Cancelled Troponin I 0.17 H* D Total Protein Albumin Globulin Albumin/Globulin Ratio Venous Blood Potassium 2.3 L* 01/21/17 05:50 WBC RBC Hgb Hct MCV MCH MCHC RDW Plt Count Gran % Lymph % (Auto) [place] % (Auto) Eos % (Auto) Baso % (Auto) Gran # Lymph # [place] # Eos # Baso # pO2 VBG pH VBG pCO2 VBG HCO3 VBG Total CO2 VBG O2 Sat (Calc) VBG Base Excess VBG Potassium Sodium 138 Chloride 101 Glucose Lactate FiO2 Potassium 2.5 L* Carbon Dioxide 30 Anion Gap 10 BUN 17 Creatinine 1.5 Est GFR ( Amer) > 60 Est GFR (Non-Af Amer) 50 Random Glucose 117 H Calcium 8.6 Magnesium 1.9 Total Bilirubin 1.0 AST 27 ALT 29 Alkaline Phosphatase 80 Lactate Dehydrogenase 610 Total Creatine Kinase 296 H CK-MB (CK-2) 1.2 CK-MB (CK-2) % Cancelled Troponin I 0.13 H* D Total Protein 6.9 Albumin 3.7 Globulin 3.2 Albumin/Globulin Ratio 1.2 Venous Blood Potassium EKG/Cardiology Studies: Cardiology / EKG Studies 01/21/17 05:00 ELECTROCARDIOGRAM Routine Comment: Reason For Exam: arrythmia Review of Systems - Constitutional Constitutional: absent: Fever, Chills, Sweats - EENT Eyes: As Per HPI Ears: As Per HPI Nose/Mouth/Throat: As Per HPI - Cardiovascular Cardiovascular: absent: Chest Pain, Chest Pain at Rest - Respiratory Respiratory: Cough - Gastrointestinal Gastrointestinal: absent: Abdominal Pain, Change in Bowel Habits - Genitourinary Genitourinary: absent: Change in Urinary Stream - Musculoskeletal Musculoskeletal: absent: Joint Swelling - Integumentary Integumentary: absent: Change in Pigmentation - Neurological Neurological: absent: Confusion, Dizziness, Headaches Critical Care Progress Note - Nutrition Nutrition: Nutrition Category Date Time Status Heart Healthy Diet [DIET] Diets 01/20/17 Breakfast Ordered Assessment/Plan - Assessment and Plan (Free Text) Assessment: 46 M with PMH significant for hypertension presenting with hypertensive emergency and suspected CAP Neuro: AAOx3, maintain normothermia, answering questions appropriately Pulm: Maintain SaO2 >90%, keep head of bed elevated 30 degrees Cardio: EKG LVH with strain, Troponins (0.14, 0.17, 0.13), Continue to monitor blood pressure and heart rate, cardene drip discontinued, Start oral cardizem GI: Pepcid for ppx Renal: Potassium Chloride for hypokalemia, Monitor electrolytes and replete as necessary Endo: Maintain euglycemia 140-180 Heme: Continue Lovenox, ASA, PLavix ID: Continue IV antibiotics per ID f/u sputum culture, f/u blood culture, f/u HIV test, f/u Procalcitonin, Negative for flu a/b legionella Ag <Carlos Enrique Vázquez - Last Filed: 01/21/17 12:06> CCU Objective - Vital Signs / Intake & Output Vital Signs (Last 4 hours): Vital Signs Temp Pulse Resp BP Pulse Ox 01/21/17 11:40 98.5 F 01/21/17 11:30 99 H 40 H 95 01/21/17 11:20 97 H 14 98 01/21/17 11:15 96 H 150/107 H 01/21/17 11:10 95 H 27 H 96 01/21/17 11:00 97 H 29 H 150/107 H 97 01/21/17 10:50 92 H 22 95 01/21/17 10:40 92 H 23 95 01/21/17 10:30 92 H 27 H 95 01/21/17 10:20 95 H 24 96 01/21/17 10:10 95 H 25 H 96 01/21/17 10:00 88 25 H 140/94 H 95 01/21/17 09:50 91 H 28 H 95 01/21/17 09:40 92 H 28 H 94 L 01/21/17 09:30 91 H 26 H 94 L 01/21/17 09:20 93 H 26 H 94 L 01/21/17 09:10 98 H 24 93 L 01/21/17 09:00 95 H 26 H 143/85 93 L 01/21/17 08:50 96 H 20 93 L 01/21/17 08:40 90 27 H 94 L 01/21/17 08:33 98.5 F 01/21/17 08:30 92 H 23 94 L 01/21/17 08:20 94 H 29 H 95 01/21/17 08:10 96 H 26 H 96 Intake and Output (Last 8hrs): Intake & Output 01/20/17 01/21/17 01/21/17 22:59 06:59 14:59 Intake Total 200 1560 Output Total 1100 Balance 200 460 Weight 174 lb 1.6 oz 174 lb 6 oz Intake: IV 200 1410 Left Forearm 1360 Oral 150 Output: Urine 1100 Urine, Voided 1100 Other: # Bowel Movements 0 - Medications Active Medications: Active Medications Generic Name Dose Route Start Last Admin Trade Name Freq PRN Reason Stop Dose Admin Acetaminophen 650 mg 01/20/17 23:22 01/21/17 08:33 Tylenol 325mg Tab PO 650 mg Q4 PRN Administration Pain, moderate (4-7) Aspirin 81 mg 01/21/17 10:00 01/21/17 09:18 Ecotrin PO 81 mg DAILY [facility] Administration Clopidogrel Bisulfate 75 mg 01/21/17 10:00 01/21/17 09:17 Plavix PO 75 mg DAILY [facility] Administration Diltiazem HCl 30 mg 01/21/17 14:00 Cardizem PO QID [facility] Doxycycline Hyclate 100 mg 01/21/17 10:00 01/21/17 09:18 Doryx PO 100 mg Q12 [facility] Administration Protocol Enoxaparin Sodium 80 mg 01/21/17 11:00 01/21/17 11:15 Lovenox SC 80 mg Q12H [facility] Administration Protocol Famotidine 20 mg 01/21/17 10:00 01/21/17 09:22 Pepcid IVP 20 mg DAILY [facility] Administration Cefepime HCl 2 gm in 100 mls @ 100 mls/hr 01/21/17 10:00 01/21/17 09:20 Maxipime 2gm IVPB 01/26/17 10:01 100 mls/hr Q12 [facility] Administration Protocol Levalbuterol HCl 1.25 mg 01/21/17 14:00 Xopenex IH [id number] [facility] - Patient Studies Lab Studies: Lab Studies 01/21/17 01/21/17 01/21/17 Range/Units 07:45 05:50 05:50 WBC 12.7 H D (4.5-11.0) 10^3/ul RBC 4.77 (3.5-6.1) 10^6/uL Hgb 13.4 L (14.0-18.0) g/dL Hct 39.2 L (42.0-52.0) % MCV 82.2 (80.0-105.0) fl MCH 28.1 (25.0-35.0) pg MCHC 34.2 (31.0-37.0) g/dl RDW 14.9 H (11.5-14.5) % Plt Count 128 (120.0-450.0) 10^3/uL Gran % 75.5 H (50.0-68.0) % Lymph % (Auto) 16.6 L (22.0-35.0) % [place] % (Auto) 7.5 H (1.0-6.0) % Eos % (Auto) 0.2 L (1.5-5.0) % Baso % (Auto) 0.2 (0.0-3.0) % Gran # 9.61 H (1.4-6.5) Lymph # 2.1 (1.2-3.4) [place] # 1.0 H (0.1-0.6) Eos # 0.0 (0.0-0.7) Baso # 0.02 (0.0-2.0) K/mm3 pO2 (30-55) mm/Hg VBG pH (7.32-7.43) VBG pCO2 (40-60) VBG HCO3 (21-28) mmol/l VBG Total CO2 (22-28) mmol.L VBG O2 Sat (Calc) (40-65) % VBG Base Excess (0.0-2.0) mmol/L VBG Potassium (3.6-5.2) mmol/L Sodium 138 (132-148) mmol/L Chloride 101 (98-107) mmol/L Glucose (75-110) mg/dl Lactate (0.7-2.1) mmol/L FiO2 % Potassium 2.5 L* (3.6-5.0) mmol/L Carbon Dioxide 30 (21-33) mmol/L Anion Gap 10 (10-20) BUN 17 (7-21) mg/dL Creatinine 1.5 (0.8-1.5) mg/dl Est GFR ( Amer) > 60 Est GFR (Non-Af Amer) 50 Random Glucose 117 H (70-110) mg/dL Calcium 8.6 (8.4-10.5) mg/dL Magnesium 1.9 (1.7-2.2) mg/dL Total Bilirubin 1.0 (0.2-1.3) mg/dL AST 27 (17-59) U/L ALT 29 (7-56) U/L Alkaline Phosphatase 80 (38-126) U/L Lactate Dehydrogenase 610 (333-699) U/L Total Creatine Kinase 296 H (35-230) U/L CK-MB (CK-2) 1.2 (0.0-3.6) ng/mL CK-MB (CK-2) % Cancelled Troponin I 0.13 H* D ng/mL Total Protein 6.9 (5.8-8.3) g/dL Albumin 3.7 (3.0-4.8) g/dL Globulin 3.2 gm/dL Albumin/Globulin Ratio 1.2 (1.1-1.8) TSH 3rd Generation 0.59 (0.46-4.68) mIU/mL Venous Blood Potassium (3.6-5.2) mmol/L 01/21/17 01/20/17 Range/Units 01:15 23:30 WBC (4.5-11.0) 10^3/ul RBC (3.5-6.1) 10^6/uL Hgb (14.0-18.0) g/dL Hct (42.0-52.0) % MCV (80.0-105.0) fl MCH (25.0-35.0) pg MCHC (31.0-37.0) g/dl RDW (11.5-14.5) % Plt Count (120.0-450.0) 10^3/uL Gran % (50.0-68.0) % Lymph % (Auto) (22.0-35.0) % [place] % (Auto) (1.0-6.0) % Eos % (Auto) (1.5-5.0) % Baso % (Auto) (0.0-3.0) % Gran # (1.4-6.5) Lymph # (1.2-3.4) [place] # (0.1-0.6) Eos # (0.0-0.7) Baso # (0.0-2.0) K/mm3 pO2 224 H (30-55) mm/Hg VBG pH 7.49 H (7.32-7.43) VBG pCO2 41.0 (40-60) VBG HCO3 31.2 H (21-28) mmol/l VBG Total CO2 32.5 H (22-28) mmol.L VBG O2 Sat (Calc) 100.0 H (40-65) % VBG Base Excess 7.2 H (0.0-2.0) mmol/L VBG Potassium 2.3 L* (3.6-5.2) mmol/L Sodium 138.0 (132-148) mmol/L Chloride 102.0 (98-107) mmol/L Glucose 114 H (75-110) mg/dl Lactate 1.5 (0.7-2.1) mmol/L FiO2 21.0 % Potassium (3.6-5.0) mmol/L Carbon Dioxide (21-33) mmol/L Anion Gap (10-20) BUN (7-21) mg/dL Creatinine (0.8-1.5) mg/dl Est GFR ( Amer) Est GFR (Non-Af Amer) Random Glucose (70-110) mg/dL Calcium (8.4-10.5) mg/dL Magnesium (1.7-2.2) mg/dL Total Bilirubin (0.2-1.3) mg/dL AST (17-59) U/L ALT (7-56) U/L Alkaline Phosphatase (38-126) U/L Lactate Dehydrogenase 616 (333-699) U/L Total Creatine Kinase 347 H (35-230) U/L CK-MB (CK-2) 1.3 (0.0-3.6) ng/mL CK-MB (CK-2) % Cancelled Troponin I 0.17 H* D ng/mL Total Protein (5.8-8.3) g/dL Albumin (3.0-4.8) g/dL Globulin gm/dL Albumin/Globulin Ratio (1.1-1.8) TSH 3rd Generation (0.46-4.68) mIU/mL Venous Blood Potassium 2.3 L* (3.6-5.2) mmol/L Laboratory Results - last 24 hr 01/20/17 01/21/17 01/21/17 23:30 01:15 05:50 WBC 12.7 H D RBC 4.77 Hgb 13.4 L Hct 39.2 L MCV 82.2 MCH 28.1 MCHC 34.2 RDW 14.9 H Plt Count 128 Gran % 75.5 H Lymph % (Auto) 16.6 L [place] % (Auto) 7.5 H Eos % (Auto) 0.2 L Baso % (Auto) 0.2 Gran # 9.61 H Lymph # 2.1 [place] # 1.0 H Eos # 0.0 Baso # 0.02 pO2 224 H VBG pH 7.49 H VBG pCO2 41.0 VBG HCO3 31.2 H VBG Total CO2 32.5 H VBG O2 Sat (Calc) 100.0 H VBG Base Excess 7.2 H VBG Potassium 2.3 L* Sodium 138.0 Chloride 102.0 Glucose 114 H Lactate 1.5 FiO2 21.0 Potassium Carbon Dioxide Anion Gap BUN Creatinine Est GFR ( Amer) Est GFR (Non-Af Amer) Random Glucose Calcium Magnesium Total Bilirubin AST ALT Alkaline Phosphatase Lactate Dehydrogenase 616 Total Creatine Kinase 347 H CK-MB (CK-2) 1.3 CK-MB (CK-2) % Cancelled Troponin I 0.17 H* D Total Protein Albumin Globulin Albumin/Globulin Ratio TSH 3rd Generation Venous Blood Potassium 2.3 L* 01/21/17 01/21/17 05:50 07:45 WBC RBC Hgb Hct MCV MCH MCHC RDW Plt Count Gran % Lymph % (Auto) [place] % (Auto) Eos % (Auto) Baso % (Auto) Gran # Lymph # [place] # Eos # Baso # pO2 VBG pH VBG pCO2 VBG HCO3 VBG Total CO2 VBG O2 Sat (Calc) VBG Base Excess VBG Potassium Sodium 138 Chloride 101 Glucose Lactate FiO2 Potassium 2.5 L* Carbon Dioxide 30 Anion Gap 10 BUN 17 Creatinine 1.5 Est GFR ( Amer) > 60 Est GFR (Non-Af Amer) 50 Random Glucose 117 H Calcium 8.6 Magnesium 1.9 Total Bilirubin 1.0 AST 27 ALT 29 Alkaline Phosphatase 80 Lactate Dehydrogenase 610 Total Creatine Kinase 296 H CK-MB (CK-2) 1.2 CK-MB (CK-2) % Cancelled Troponin I 0.13 H* D Total Protein 6.9 Albumin 3.7 Globulin 3.2 Albumin/Globulin Ratio 1.2 TSH 3rd Generation 0.59 Venous Blood Potassium EKG/Cardiology Studies: Cardiology / EKG Studies 01/21/17 05:00 ELECTROCARDIOGRAM Routine Comment: Reason For Exam: arrythmia Critical Care Progress Note - Nutrition Nutrition: Nutrition Category Date Time Status Heart Healthy Diet [DIET] Diets 01/20/17 Breakfast Ordered Assessment/Plan - Assessment and Plan (Free Text) Assessment: Patient seen and examined on rounds with resident, agree with note with following additions/exceptions: Pt is 46yo male with PMhx of HTN on NOrvasc ( allergic to ACEI, angioedema), presented with hypertensive emergency, elevated troponin and CAP. Currently afebrile, HD stable, comfortable on 2LNC, sat 98%, off cardene drip, cardiology following. PNA, CAP Hypertensive Emergency Elevated troponin Recommend: - supp o2 as needed - antibiotics to cover for CAP - check Urine Lg, Strep - CHeck Procal - Follow up ID - BP control, patient is off cardene drip - follow up cardiology - Lovenox, ASA, Plavix, Statin, BB - Duonebs PRN - PCI as per cardiology - replete K - FS control - GI ppx - DVT ppx - monitor in MICU critical care time 40 minutes
[2017-01-21] MEDS: Potassium Chloride 20 mEq ER Tab PO SCH ×4 (07:40→17:22)
--- NOTE | 2017-01-21 08:04 | RAD ---
PROCEDURE: CHEST RADIOGRAPH, 1 VIEW study performed 19:25 HISTORY: 46-year-old male presenting with chest pain. Pain COMPARISON: January 20, 2017. Time of the most recent examination: 19:01. FINDINGS: LUNGS: Lateral view only, limits assessment of pulmonary parenchyma, confirms the presence of pulmonary edema. PLEURA: No pneumothorax or pleural fluid seen. CARDIOVASCULAR: Normal. OSSEOUS STRUCTURES: No significant abnormalities. VISUALIZED UPPER ABDOMEN: Normal. OTHER FINDINGS: None. IMPRESSION: Confirmation of pulmonary edema identified on portable AP view.
[2017-01-21] MEDS: Cefepime IV 2 gm in NS 2 GM/100 ML BAG IVPB SCH ×2 (09:20→21:22)
[2017-01-21] MEDS ORDERED: cefTRIAXone 1 gm 1 GM/100 ML BAG IVPB SCH (10:00)
--- NOTE | 2017-01-21 10:25 | CP.PCM.CON ---
History of Present Illness - History of Present Illness History of Present Illness: 46 year old male with PMH of HTN came in to [facility] complaining of cough with thick whitish phlegm and dyspnea on exertion for the past 2-3 days. He was also having a dull headache which has now resolved. he denies fever or chills, no nausea or vomiting, no chest pain, has some abdominal pain when he is coughing, no diarrhea, no dysuria or hematuria. He recently traveled to [place] for work (about 2 weeks ago). He may have also had contact with a sick co-worker. He denies animal contacts. CXR done in the ED is showing bilateral pulmonary edema but cannot rule out pneumonia. His WBC count is elevated as well. Infectious diseases consult is requested to further evaluate and manage. Review of Systems - Review of Systems All systems: reviewed and no additional remarkable complaints except (as per HPI ) Past Patient History - Infectious Disease Hx of Infectious Diseases: None - Past Social History Smoking Status: Former Smoker - CARDIAC Hx Hypertension: Yes - PULMONARY Hx Respiratory Disorders: No - NEUROLOGICAL Hx Neurological Disorder: No - HEENT Hx HEENT Problems: No - RENAL Hx Chronic Kidney Disease: No - ENDOCRINE/METABOLIC Hx Endocrine Disorders: No - HEMATOLOGICAL/ONCOLOGICAL Hx Blood Disorders: No - INTEGUMENTARY Hx Dermatological Problems: No - MUSCULOSKELETAL/RHEUMATOLOGICAL Hx Musculoskeletal Disorders: No Hx Falls: No - GASTROINTESTINAL Hx Gastrointestinal Disorders: No - GENITOURINARY/GYNECOLOGICAL Hx Genitourinary Disorders: No - PSYCHIATRIC Hx Psychophysiologic Disorder: No Hx Substance Use: No - SURGICAL HISTORY Hx Surgeries: No - ANESTHESIA Hx Anesthesia Reactions: No Meds Allergies/Adverse Reactions: Allergies Allergy/AdvReac Type Severity Reaction Status Date / Time KELIN Inhibitors Allergy ANGIOEDEMA Verified 01/21/17 08:36 hydrochlorothiazide Allergy RASH Verified 01/20/17 18:29 - Medications Medications: Current Medications Acetaminophen (Tylenol 325mg Tab) 650 mg PO Q4 PRN PRN Reason: Pain, moderate (4-7) Aspirin (Ecotrin) 81 mg PO DAILY [facility] Doxycycline Hyclate (Doryx) 100 mg PO Q12 [place] PRN Reason: Protocol Famotidine (Pepcid) 20 mg IVP DAILY [facility] Lactated Ringer's (Lactated Ringer's) 1,000 mls @ 999 mls/hr IV .Q1H1M [facility] Last Admin: 01/20/17 19:46 Dose: Not Given Nicardipine HCl (Cardene Iv Premix) 20 mg in 200 mls @ 50 mls/hr IV .Q4H PRN; Protocol; 5 MG/HR PRN Reason: TITRATE PER MD ORDER Last Admin: 01/21/17 03:00 Dose: 1.25 mg/hr, 12.5 mls/hr Cefepime HCl (Maxipime 2gm) 2 gm in 100 mls @ 100 mls/hr IVPB Q12 [place] PRN Reason: Protocol Stop: 01/26/17 10:01 Vancomycin HCl (Vancomycin 1gm) 1 gm in 250 mls @ 167 mls/hr IVPB STAT STA PRN Reason: Protocol Stop: 01/21/17 08:13 Physical Exam - Constitutional Appears: Non-toxic, No Acute Distress - Head Exam Head Exam: NORMAL INSPECTION - ENT Exam ENT Exam: Mucous Membranes Moist - Neck Exam Neck exam: Negative for: Lymphadenopathy, Meningismus - Respiratory Exam Respiratory Exam: Decreased Breath Sounds - Cardiovascular Exam Cardiovascular Exam: +S1, +S2 - GI/Abdominal Exam GI & Abdominal Exam: Soft. absent: Tenderness Results - Vital Signs Recent Vital Signs: Last Vital Signs Temp 99.4 F 01/21/17 04:00 Pulse 88 01/21/17 04:50 Resp 22 01/21/17 04:50 BP 149/97 H 01/21/17 04:00 Pulse Ox 97 01/21/17 04:50 - Labs Result Diagrams: 01/21/17 05:50 01/21/17 05:50 Labs: Laboratory Results - last 24 hr 01/20/17 01/21/17 01/21/17 23:30 01:15 05:50 WBC 12.7 H D RBC 4.77 Hgb 13.4 L Hct 39.2 L MCV 82.2 MCH 28.1 MCHC 34.2 RDW 14.9 H Plt Count 128 Gran % 75.5 H Lymph % (Auto) 16.6 L [place] % (Auto) 7.5 H Eos % (Auto) 0.2 L Baso % (Auto) 0.2 Gran # 9.61 H Lymph # 2.1 [place] # 1.0 H Eos # 0.0 Baso # 0.02 pO2 224 H VBG pH 7.49 H VBG pCO2 41.0 VBG HCO3 31.2 H VBG Total CO2 32.5 H VBG O2 Sat (Calc) 100.0 H VBG Base Excess 7.2 H VBG Potassium 2.3 L* Sodium 138.0 Chloride 102.0 Glucose 114 H Lactate 1.5 FiO2 21.0 Lactate Dehydrogenase 616 Total Creatine Kinase 347 H CK-MB (CK-2) 1.3 CK-MB (CK-2) % Cancelled Troponin I 0.17 H* D Venous Blood Potassium 2.3 L* Assessment & Plan - Assessment and Plan (Free Text) Plan: Assessment Systemic Inflammatory Response syndrome, consider due to acute pulmonary edema R /O cardiogenic cause R/O sepsis with severe community-acquired pneumonia HTN Plan Started patient on a dose of IV Vancomycin and started cefepime and doxycycline pending sputum cx, blood cx, PCT, urine Legionella Ag follow up cardiology recommendations will get HIV test will monitor clinically
[2017-01-21] MEDS: Enoxaparin 80 mg Syringe SC SCH ×2 (11:15→22:42)
[2017-01-21] MEDS ORDERED: Levalbuterol 1.25 MG/3 ML Inhal Soln UD IH PRN (11:50)
[2017-01-21] MEDS: Levalbuterol 1.25 MG/3 ML Inhal Soln UD IH SCH ×2 (13:03→20:21)
--- NOTE | 2017-01-21 13:50 | CP.PCM.PN ---
<JadenZhanen - Last Filed: 01/21/17 16:03> Subjective - Date & Time of Evaluation Date of Evaluation: 01/21/17 Time of Evaluation: 07:47 - Subjective Subjective: Patient seen and examined at bedside. Per nursing no acute events occurred overnight. The patient reports a slight headache located at the crown of his head. He denies any chest pain, abdominal pain, shortness of breath, lightheadedness, dizziness, syncopal episodes, fevers, chills, or any other complaints. Objective - Vital Signs/Intake and Output Vital Signs (last 24 hours): Temp Pulse Resp BP Pulse Ox 98.5 F 99 H 40 H 150/107 H 95 01/21/17 11:40 01/21/17 11:30 01/21/17 11:30 01/21/17 11:15 01/21/17 11:30 Intake and Output: 01/21/17 01/21/17 06:59 18:59 Intake Total 200 1560 Output Total 1100 Balance 200 460 - Medications Medications: Current Medications Acetaminophen (Tylenol 325mg Tab) 650 mg PO Q4 PRN PRN Reason: Pain, moderate (4-7) Last Admin: 01/21/17 08:33 Dose: 650 mg Aspirin (Ecotrin) 81 mg PO DAILY [facility] Last Admin: 01/21/17 09:18 Dose: 81 mg Clopidogrel Bisulfate (Plavix) 75 mg PO DAILY [facility] Last Admin: 01/21/17 09:17 Dose: 75 mg Diltiazem HCl (Cardizem) 30 mg PO QID [facility] Doxycycline Hyclate (Doryx) 100 mg PO Q12 [facility] PRN Reason: Protocol Last Admin: 01/21/17 09:18 Dose: 100 mg Enoxaparin Sodium (Lovenox) 80 mg SC Q12H [place] PRN Reason: Protocol Last Admin: 01/21/17 11:15 Dose: 80 mg Famotidine (Pepcid) 20 mg IVP DAILY [facility] Last Admin: 01/21/17 09:22 Dose: 20 mg Cefepime HCl (Maxipime 2gm) 2 gm in 100 mls @ 100 mls/hr IVPB Q12 [place] PRN Reason: Protocol Stop: 01/26/17 10:01 Last Admin: 01/21/17 09:20 Dose: 100 mls/hr Levalbuterol HCl (Xopenex) 1.25 mg IH [id number] [place] Last Admin: 01/21/17 13:03 Dose: 1.25 mg - Labs Labs: 01/21/17 05:50 01/21/17 05:50 PT 12.1 SECONDS (9.4-12.5) 01/20/17 19:00 INR 1.11 (0.93-1.08) H 01/20/17 19:00 APTT 28.5 Seconds (25.1-36.5) 01/20/17 19:00 - Head Exam Head Exam: ATRAUMATIC, NORMAL INSPECTION, NORMOCEPHALIC - Eye Exam Eye Exam: EOMI, Normal appearance, PERRL. absent: Periorbital tenderness Pupil Exam: NORMAL ACCOMODATION, PERRL. absent: Irregular, Unequal - ENT Exam ENT Exam: Mucous Membranes Moist, Normal Exam, Normal Oropharynx. absent: TM's Normal Bilaterally - Respiratory Exam Respiratory Exam: Clear to Ausculation Bilateral, NORMAL BREATHING PATTERN. absent: Chest Wall Tenderness, Prolonged Expiratory Phase, Respiratory Distress - Cardiovascular Exam Cardiovascular Exam: REGULAR RHYTHM, +S1, +S2. absent: Gallop, RRR, Rubs - GI/Abdominal Exam GI & Abdominal Exam: Soft, Normal Bowel Sounds. absent: Rigid, Hyperactive Bowel Sounds - Extremities Exam Extremities Exam: Full ROM. absent: Joint Swelling, Pedal Edema, Tenderness - Back Exam Back Exam: NORMAL INSPECTION. absent: CVA tenderness (L), CVA tenderness (R), paraspinal tenderness - Neurological Exam Neurological Exam: Alert, Awake, CN II-XII Intact, Normal Gait, Oriented x3 - Psychiatric Exam Psychiatric exam: Normal Affect, Normal Mood. absent: Depressed, Flat Affect, Suicidal Ideation - Skin Skin Exam: Dry, Intact, Normal Color. absent: Diaphoretic, Pallor, Pallor Assessment and Plan - Assessment and Plan (Free Text) Assessment: Patient is a 46yo male who presents to the emergency department via EMS for evaluation and treatment of nasal congestion, production cough with pleghm which began 2 days ago without any provoking event. Plan: Hypertensive Emergency -BP stable upon examination 148/98. Resolved. Will continue to trend. -Patient states he was only on Norvasc in [place] per the . -Continue Cardene drip Chest Pain - rule out ACS - EKG reviewed and appreciated - t wave inversions in the lateral leads - cardiac enzymes q8h x 3, Troponins: .14, .17, .13- as per ED physician Dr. Velez was contacted to review patient EKG- the abnormality in the precordial leads is secondary to ventricular strain in the setting of sepsis. Will continue to monitor closely. - lipid profile: Triglycerides: 154, Cholesterol: 156, LDL: 117, and HDL :34 -Patient states he had an ECHO done in the past that was normal (unsure of the year). Patient also had two Cardiac cath's done in the past and he reports they said there was no occlusion or blockages found. Will try and obtain records from hospital. - ECHO ordered. Will f/u with results. - cardiology consulted- rec's appreciated.-Continue plavix and lovenox. -Dietitian eval ordered. Will f/u with rec's. Sepsis; Pneumonia - greater than 2/4 SIRS criteria met in setting of infectious source ( elevated WBC and HR > 90) - CXR- showing bibasilar opacity -Blood, sputum and MRSA ordered .Will f/u with results. - strep pneumonia, mycoplasma, and legionella ordered. Will f/u with results. - levaquin and zosyn given in ED, Continue doxycycline and Cefepime for CAP coverage. - 1 liter NS and 1 Liter LR given in ED, no need for maintanience fluids at this time (elevated BNP taken into account and elevated BP taken into account) - infectious disease consulted. Rec's appreciated. -Robutussin started. Nasal saline spray started. Headache - 2/2 elevated BP - Continue prn tylenol ordered - head CT- no acute intracranial abnormalities MARY - BUN and creatinine noted and appreciated - likely 2/2 hypertensive state - no IVF at this time- will monitor closely with repeat CMP in the A.[facility]. Electrolyte Abnormality - hypokalemia- repleted and monitor closely via serial CMP - mag ordered Prophylaxis - DVT ppx- patient is on lovenox - GI ppx- famotidine <Elen Jaquez - Last Filed: 01/22/17 16:38> Objective - Vital Signs/Intake and Output Vital Signs (last 24 hours): Temp Pulse Resp BP Pulse Ox 98.8 F 106 H 40 H 177/108 H 95 01/21/17 15:54 01/21/17 17:25 01/21/17 11:30 01/21/17 17:25 01/21/17 11:30 Intake and Output: 01/21/17 01/21/17 06:59 18:59 Intake Total 200 1560 Output Total 1100 Balance 200 460 - Medications Medications: Current Medications Acetaminophen (Tylenol 325mg Tab) 650 mg PO Q4 PRN PRN Reason: Pain, moderate (4-7) Last Admin: 01/21/17 15:54 Dose: 650 mg Albuterol/Ipratropium (Duoneb 3 Mg/0.5 Mg (3 Ml) Ud) 3 ml IH [id number] PRN PRN Reason: Cough and congestion Aspirin (Ecotrin) 81 mg PO DAILY [facility] Last Admin: 01/21/17 09:18 Dose: 81 mg Atorvastatin Calcium (Lipitor) 40 mg PO DIN [facility] Last Admin: 01/21/17 17:06 Dose: 40 mg Benzonatate (Tessalon Perles) 100 mg PO TID PRN PRN Reason: Cough Last Admin: 01/21/17 14:12 Dose: 100 mg Clopidogrel Bisulfate (Plavix) 75 mg PO DAILY [facility] Last Admin: 01/21/17 09:17 Dose: 75 mg Diltiazem HCl (Cardizem) 30 mg PO QID [facility] Last Admin: 01/21/17 17:22 Dose: 30 mg Doxycycline Hyclate (Doryx) 100 mg PO Q12 [place] PRN Reason: Protocol Last Admin: 01/21/17 09:18 Dose: 100 mg Enoxaparin Sodium (Lovenox) 80 mg SC Q12H [place] PRN Reason: Protocol Last Admin: 01/21/17 11:15 Dose: 80 mg Famotidine (Pepcid) 20 mg IVP DAILY [facility] Last Admin: 01/21/17 09:22 Dose: 20 mg Guaifenesin (Robitussin) 100 mg PO Q4H [facility] Last Admin: 01/21/17 15:45 Dose: 100 mg Hydralazine HCl (Apresoline) 10 mg PO QID PRN PRN Reason: for sbp>160 Last Admin: 01/21/17 17:25 Dose: 10 mg Cefepime HCl (Maxipime 2gm) 2 gm in 100 mls @ 100 mls/hr IVPB Q12 [place] PRN Reason: Protocol Stop: 01/26/17 10:01 Last Admin: 01/21/17 09:20 Dose: 100 mls/hr Levalbuterol HCl (Xopenex) 1.25 mg IH [id number] [place] Last Admin: 01/21/17 13:03 Dose: 1.25 mg Sodium Chloride ([place] Nasal [place]) 0 ml NS Q4H PRN PRN Reason: Nasal congestion Last Admin: 01/21/17 15:55 Dose: 2 sprays - Labs Labs: 01/21/17 05:50 01/21/17 14:15 PT 12.1 SECONDS (9.4-12.5) 01/20/17 19:00 INR 1.11 (0.93-1.08) H 01/20/17 19:00 APTT 28.5 Seconds (25.1-36.5) 01/20/17 19:00 Attending/Attestation - Attestation I have personally seen and examined this patient.: Yes I have fully participated in the care of the patient.: Yes I have reviewed all pertinent clinical information, including history, physical exam and plan: Yes Notes (Text): 01/21/17 17:58 attending note; Patient seen and examined with resident. Patient is a 46-year-old male with a past medical history of hypertension, noncompliance with follow-up, asthma was admitted with cough and shortness of breath, nasal congestion and hypertensive emergency. Hypertensive emergency; treated with IV Nicardipine drip. Changed to po antihypertensives and monitor closely in ICU. Chest x-ray showed bibasilar opacities. Currently on doxycycline and cefepime. ID evaluation appreciated. continue DuoNeb treatment. Positive troponin; secondary to hypertensive Emergency/demand ischemia. Currently blood pressure is controlled. Continue aspirin, Plavix and Lovenox. Cardiology evaluation with Dr. Velez appreciated. echocardiogram ordered. elevated creatinine. Baseline creatinine not known. Hypokalemia; continue IV supplementation. renin and aldosterone level ordered. possible hyperaldosteronism. The diagnosis, treatment option explained to the patient in detail. Dietitian evaluation requested. Need for medication compliance insisted. Upon discharge the patient will follow up with PMD of choice.
--- NOTE | 2017-01-21 14:03 | CARD ---
APPROVED REPORT EKG Measurement Heart [id number] <Conclusion> Sinus tachycardia with occasional premature ventricular complexes Biatrial enlargement Left ventricular hypertrophy with QRS widening T wave abnormality, consider lateral ischemia Abnormal ECG
[2017-01-21 14:39] LABS: POTASSIUM 2.9 mmol/L (3.6-5.0)
[2017-01-21] MEDS ORDERED: Albuterol-Ipratrop 3 mg / 0.5 (3 ml) UD IH PRN (14:40)
[2017-01-21 14:45] LABS: TROPONIN I 0.1 ng/mL
[2017-01-21] MEDS: guaiFENesin 100 mg/5 ml Syrup UD PO SCH ×3 (15:45→22:37)
[2017-01-21] MEDS ORDERED: Potassium Chloride 20 mEq ER Tab PO STA (18:04)
--- NOTE | 2017-01-21 18:40 | CARD ---
APPROVED REPORT EXAM: Two-dimensional and M-mode echocardiogram with Doppler and color Doppler. INDICATION Abnormal EKG/Arrhythmia 2D DIMENSIONS Left Atrium (2D)4.4 (1.6-4.0cm)IVSd1.4 (0.7-1.1cm) LVDd6.5 (3.9-5.9cm)PWd1.2 (0.7-1.1cm) LVDs5.8 (2.5-4.0cm)FS (%) 9.6 % LVEF (%)20.3 (>50%) M-Mode DIMENSIONS Aortic Root3.10 (2.2-3.7cm)Aortic Cusp Exc.2.10 (1.5-2.0cm) Aortic Valve AoV Peak Itudtvsp405.0cm/Xavi Peak GR.6mmHg Mitral Valve E/A ratio0.0 TDI E/Lateral E'0.0E/Medial E'0.0 Tricuspid Valve TR Peak [id number]/sRAP [id number] Peak Gr.32mmHg [id number] LEFT VENTRICLE The Left Ventricle is mildly dilated. There is mild concentric left ventricular hypertrophy. The systolic function is severely impaired. There is global hypokinesis of the left ventricle. Transmitral Doppler flow pattern is Grade I-abnormal relaxation pattern. The apical thrombus is small. RIGHT VENTRICLE The right ventricle is normal size. There is normal right ventricular wall thickness. The right ventricular systolic function is normal. ATRIA The left atrium is mildly dilated. The right atrium is mildly dilated. AORTIC VALVE The aortic valve is normal in structure. No aortic regurgitation is present. MITRAL VALVE The mitral valve is normal in structure. Mitral regurgitation is moderate. TRICUSPID VALVE There is mild pulmonary hypertension. GREAT VESSELS The aortic root is normal in size. The IVC is normal in size and collapses >50% with inspiration. PERICARDIAL EFFUSION There is no pericardial effusion. <Conclusion> The Left Ventricle is mildly dilated. There is mild concentric left ventricular hypertrophy. The systolic function is severely impaired. There is global hypokinesis of the left ventricle. Transmitral Doppler flow pattern is Grade I-abnormal relaxation pattern. The apical thrombus is small. Mitral regurgitation is moderate. There is mild pulmonary hypertension.
[2017-01-21 19:34] LABS: ALB/GLOB RATIO 1.2 (1.1-1.8); ALKALINE PHOSPHATASE 89 U/L (38-126); ALT/SGPT 41 U/L (7-56); AST/SGOT 36 U/L (17-59); BILIRUBIN,TOTAL 0.9 mg/dL (0.2-1.3); BLOOD UREA NITROGEN 17 mg/dL (7-21); CALCIUM 9.5 mg/dL (8.4-10.5); CARBON DIOXIDE 28 mmol/L (21-33); CHLORIDE 101 mmol/L (98-107); GFR AFRICAN-AMERICAN > 60; GLUCOSE,RANDOM 119 mg/dL (70-110); POTASSIUM 3.2 mmol/L (3.6-5.0); SODIUM 139 mmol/L (132-148); TOTAL PROTEIN 7.5 g/dL (5.8-8.3)
[2017-01-21] MEDS ORDERED: Metoprolol 1 mg/ml Inj IVP ONE (23:16)
[2017-01-21] MEDS ORDERED: Promethazine/Cod 6.25mg-10mg/5ml Syr UD PO ONE (23:44)
--- NOTE | 2017-01-22 00:21 | CARD ---
APPROVED REPORT EKG Measurement Heart [id number] <Conclusion> Normal sinus rhythm Biatrial enlargement Left ventricular hypertrophy with QRS widening Marked T wave abnormality, consider anterolateral ischemia Abnormal ECG
[2017-01-22] MEDS ORDERED: DiphenhydrAMINE 50 mg/ml Inj IVP ONE (00:47)
[2017-01-22] MEDS: Levalbuterol 1.25 MG/3 ML Inhal Soln UD IH SCH ×4 (01:21→20:00)
[2017-01-22] MEDS: guaiFENesin 100 mg/5 ml Syrup UD PO SCH (02:51)
[2017-01-22 05:58] LABS: BASO # 0.02 K/mm3 (0.0-2.0); BASO % 0.1 % (0.0-3.0); EOS % 0.1 % (1.5-5.0); GRAN % 80.4 % (50.0-68.0); HEMATOCRIT 40.1 % (42.0-52.0); LYMPH # 1.6 (1.2-3.4); LYMPH % 10.8 % (22.0-35.0); MEAN CELL VOLUME 81.8 fl (80.0-105.0); MEAN CORPUSCULAR HEMOGLOBIN 28.4 pg (25.0-35.0); MEAN CORPUSCULAR HGB CONC 34.7 g/dl (31.0-37.0); MONO # 1.3 (0.1-0.6); MONO % 8.6 % (1.0-6.0); PLATELET COUNT 126 10^3/uL (120.0-450.0); RED CELL DISTRIBUTION WIDTH 15.1 % (11.5-14.5); WHITE BLOOD COUNT 14.6 10^3/ul (4.5-11.0)
[2017-01-22 07:27] LABS: ALB/GLOB RATIO 1.1 (1.1-1.8); ALKALINE PHOSPHATASE 88 U/L (38-126); ALT/SGPT 36 U/L (7-56); AST/SGOT 34 U/L (17-59); BILIRUBIN,TOTAL 1.2 mg/dL (0.2-1.3); BLOOD UREA NITROGEN 17 mg/dL (7-21); CALCIUM 9.2 mg/dL (8.4-10.5); CARBON DIOXIDE 24 mmol/L (21-33); CHLORIDE 106 mmol/L (98-107); GFR AFRICAN-AMERICAN > 60; GLUCOSE,RANDOM 120 mg/dL (70-110); MAGNESIUM 1.7 mg/dL (1.7-2.2); PHOSPHOROUS 1.8 mg/dL (2.5-4.5); SODIUM 140 mmol/L (132-148); TOTAL PROTEIN 7.1 g/dL (5.8-8.3)
[2017-01-22] MEDS ORDERED: Magnesium Sulfate 1 gm in D5W 1 GM/100 ML BAG IVPB ONE (07:41)
[2017-01-22] MEDS ORDERED: Potassium Phosphate 15 MMOLE in Sodium Chloride 0.9% 250 ML IVPB ONE (07:41)
[2017-01-22] MEDS ORDERED: Potassium Chloride 20 mEq ER Tab PO ONE (07:44)
--- NOTE | 2017-01-22 08:31 | CON ---
DATE: 01/21/2017 CARDIOLOGY CONSULTATION REASON FOR CONSULTATION: Assessment for code STEMI. BRIEF CLINICAL HISTORY: This is a 46-year-old male with past medical history of significant for hypertension, admitted with left-sided chest pain, cough, fever, and chills for 2 days. EKG was done, looks like more LVH with strain pattern, so ER physician, Dr. Melinda Rosario called me for evaluation for code STEMI. EKG looks like it does not fulfill the criteria of code STEMI, probably the hypertensive response. Later on, we learned that the patient has WBC of 15 and right lower lobe pneumonia consolidation, most likely sepsis, and later on, he called me again with the troponin positive. I initially told them troponin may be turned positive, but does not fulfill the criteria of code STEMI. So, Cardiology consult was called. The patient denies any chest pain. This morning, I saw the patient. The patient, though complained of left-sided chest pain taking a deep breath and it hurts when he coughs. The patient is giving history of having cough, fever, chills, bringing up sputum for 2 to 3 days. Denies any prior episode of dyspnea on exertion or chest pain on exertion, though now the patient complaining of dyspnea. PAST MEDICAL HISTORY: Significant for hypertension. SOCIAL HISTORY: Former tobacco abuse, quit 20 years ago, used to smoke half a pack a day. Socially drinks. History of some marijuana and cocaine way back in 1979. PAST SURGICAL HISTORY: Nothing significant. CURRENT MEDICATIONS: The patient was taking amlodipine. ALLERGIES: LISINOPRIL AND HYDROCHLOROTHIAZIDE, GIVES ANGIOEDEMA. CURRENT MEDICATIONS: Amlodipine. PHYSICAL EXAMINATION: VITAL SIGNS: As follows: Temperature afebrile, heart rate 105 and blood pressure 120/84. HEENT: PERRLA intact. NECK: Supple. No carotid bruit or thyromegaly. CHEST: Clear to auscultation. HEART: S1 and S2 regular. ABDOMEN: Soft. EXTREMITIES: Clubbing and cyanosis negative. LABORATORY DATA: Blood workup as follows: WBC 12.7, hemoglobin 13.4, hematocrit 39.2 and platelet count 128. Chemistry shows sodium 130, potassium 2.5, chloride 101, carbon dioxide 30, anion gap 10, BUN 17 and creatinine 1.5. Troponin is 0.17 and 0.13. Chest x-ray shows right lower lobe pneumonia, dense consolidation. EKG shows normal sinus, LVH with strain pattern. IMPRESSION: Uncontrolled hypertension, admitting blood pressure 202/140. Borderline troponin is positive secondary to hemodynamic instability, but cannot rule out underlying coronary artery disease. A 46-year-old male with past medical history of hypertension on amlodipine, admitted with 2 days history of fever, chills, right lower lobe pneumonia, sepsis, admitting WBC 15,000 and x-ray was consistent with right lower lobe pneumonia. Borderline troponin positive, mostly likely secondary to hemodynamic instability. I do not think so that is an acute problem, but because of the lifestyle, cannot rule out underlying coronary artery disease. RECOMMENDATIONS: Aggressively treat for pneumonia, broad-spectrum antibiotics. Also has unstable angina and non-Q-wave TN, 1 mg/kg q.12 Lovenox, beta-kayy, aspirin, and Plavix. Once the patient's pneumonia gets better, probably by Saturday or , we will do cardiac catheterization to rule out underlying coronary artery disease. We will also order an echo to review when it is available. Also added lipid profile, TSH, and hemoglobin A1c. We will follow. Thank you, Dr. Jaquez, for providing us the opportunity in taking care of the patient . Rhea Velez MD
[2017-01-22] MEDS: Promethazine/Cod 6.25mg-10mg/5ml Syr UD PO PRN ×3 (09:13→23:47)
[2017-01-22] MEDS: Cefepime IV 2 gm in NS 2 GM/100 ML BAG IVPB SCH ×2 (09:15→22:06)
--- NOTE | 2017-01-22 09:50 | CP.CCUPN ---
<Onel Yung - Last Filed: 01/22/17 12:59> CCU Subjective - Physician Review Subjective (Free Text): Critical Care Progress Note for Dr. Vázquez Patient seen and examined at bedside. No acute overnight. Patient is doing well. Eating heart healthy diet this morning. Patient complaining of dry throat and dry cough on deep inhalation. Patient also complaining of body aches that he attributes to soreness from coughing. Patient denies fever/chills, nausea/ vomiting, chest pain, abdominal pain. CCU Objective - Vital Signs / Intake & Output Vital Signs (Last 4 hours): Vital Signs Pulse Resp BP Pulse Ox 01/22/17 09:13 116 H 190/105 H 01/22/17 07:25 97 01/22/17 06:04 110 H 54 H 187/96 H 97 01/22/17 06:00 113 H 55 H 202/109 H 97 01/22/17 05:53 112 H 34 H 01/22/17 05:50 114 H 46 H 91 L Intake and Output (Last 8hrs): Intake & Output 01/21/17 01/22/17 01/22/17 22:59 06:59 14:59 Intake Total 1000 580 Output Total 1500 500 Balance -500 80 Intake: IV 400 100 Left Forearm 400 100 Oral 600 480 Output: Urine 1500 500 Urine, Voided 1500 500 Other: # Voids Urine, Voided 4 # Bowel Movements 1 - Physical Exam Head: Positive for: Atraumatic, Normocephalic Pupils: Positive for: PERRL Extroacular Muscles: Positive for: EOMI Conjunctiva: Positive for: Normal Ears: Positive for: Normal Mouth: Positive for: Moist Mucous Membranes Pharnyx: Positive for: Normal Nose (External): Positive for: Atraumatic Nose (Internal): Positive for: Normal Inspection, Clear Mucous Neck: Positive for: Normal Range of Motion Respiratory/Chest: Positive for: Good Air Exchange, Respiratory Distress Cardiovascular: Positive for: Regular Rate and Rhythm, Normal S1, S2 Abdomen: Negative for: Tenderness, Distention, Normal Bowel Sounds, Peritoneal Signs, Rebound, Guarding, McBurney's Point Tender, Rovsing's Sign Present, Hernias, Feeding Tubes, Ostomy Tubes, Mass/Organomegaly, Scars, Other Back: Positive for: Normal Inspection Upper Extremity: Positive for: Normal Inspection. Negative for: Cyanosis Lower Extremity: Positive for: Normal Inspection. Negative for: Edema, CALF TENDERNESS Neurological: Positive for: GCS=15, CN II-XII Intact, Speech Normal, Motor Func Grossly Intact Skin: Positive for: Warm, Normal Color Psychiatric: Positive for: Alert, Oriented x 3, Normal Insight, Normal Concentration - Medications Active Medications: Active Medications Generic Name Dose Route Start Last Admin Trade Name Freq PRN Reason Stop Dose Admin Acetaminophen 650 mg 01/20/17 23:22 01/22/17 09:10 Tylenol 325mg Tab PO 650 mg Q4 PRN Administration Pain, moderate (4-7) Acetylcysteine 4 ml 01/22/17 08:00 Acetylcysteine 20% IH [id number] MADELEINE Albuterol/Ipratropium 3 ml 01/21/17 14:40 Duoneb 3 Mg/0.5 Mg (3 Ml) Ud IH [id number] PRN Cough and congestion Alprazolam 0.5 mg 01/22/17 09:30 Xanax PO BID PRN Anxiety Protocol Aspirin 81 mg 01/21/17 10:00 01/22/17 09:11 Ecotrin PO 81 mg DAILY MADELEINE Administration Atorvastatin Calcium 40 mg 01/21/17 17:00 01/21/17 17:06 Lipitor PO 40 mg DIN MADELEINE Administration Benzonatate 100 mg 01/21/17 14:03 01/22/17 09:10 Tessalon Perles PO 100 mg TID PRN Administration Cough Carvedilol 12.5 mg 01/22/17 10:00 Coreg PO BID MADELEINE Clopidogrel Bisulfate 75 mg 01/21/17 10:00 01/21/17 09:17 Plavix PO 75 mg DAILY MADELEINE Administration Doxycycline Hyclate 100 mg 01/21/17 10:00 01/22/17 09:11 Doryx PO 100 mg Q12 MADELEINE Administration Protocol Enoxaparin Sodium 80 mg 01/21/17 11:00 01/21/17 22:42 Lovenox SC 80 mg Q12H MADELEINE Administration Protocol Famotidine 20 mg 01/21/17 10:00 01/22/17 09:13 Pepcid IVP 20 mg DAILY MADELEINE Administration Hydralazine HCl 25 mg 01/22/17 09:15 Apresoline PO Q8H M[place] Cefepime HCl 2 gm in 100 mls @ 100 mls/hr 12/11/17 10:00 01/22/17 09:15 Maxipime 2gm IVPB 01/26/17 10:01 100 mls/hr Q12 MADELEINE Administration Protocol Potassium Phosphate 15 mmole/ 255 mls @ 42.5 mls/hr 01/22/17 07:41 01/22/17 09:14 Sodium Chloride IVPB 01/22/17 13:40 42.5 mls/hr ONCE ONE Administration Isosorbide Mononitrate 60 mg 01/22/17 10:00 Imdur PO DAILY MADELEINE Levalbuterol HCl 1.25 mg 01/21/17 14:00 01/22/17 07:25 Xopenex IH 1.25 mg [id number] MADE[place]INE Administration Potassium Phos/Sodium Phos 1 pkt 01/22/17 10:00 01/22/17 09:10 Neutra-Phos PO 1 pkt TID MADELEINE Administration Promethazine HCl/Codeine 5 ml 01/22/17 07:40 01/22/17 09:13 Phenergan/Codeine Oral Syrup PO 5 ml Q4H PRN Administration Cough and congestion Sodium Chloride 0 ml 01/21/17 14:41 01/21/17 15:55 [place] Nasal [place] NS 2 sprays Q4H PRN Administration Nasal congestion Spironolactone 25 mg 01/22/17 10:00 Aldactone PO BID MADELEINE - Patient Studies Lab Studies: Lab Studies 01/22/17 01/22/17 01/21/17 Range/Units 05:00 05:00 23:03 WBC 14.6 H (4.5-11.0) 10^3/ul RBC 4.90 (3.5-6.1) 10^6/uL Hgb 13.9 L (14.0-18.0) g/dL Hct 40.1 L (42.0-52.0) % MCV 81.8 (80.0-105.0) fl MCH 28.4 (25.0-35.0) pg MCHC 34.7 (31.0-37.0) g/dl RDW 15.1 H (11.5-14.5) % Plt Count 126 (120.0-450.0) 10^3/uL Gran % 80.4 H (50.0-68.0) % Lymph % (Auto) 10.8 L (22.0-35.0) % [place] % (Auto) 8.6 H (1.0-6.0) % Eos % (Auto) 0.1 L (1.5-5.0) % Baso % (Auto) 0.1 (0.0-3.0) % Gran # 11.70 H (1.4-6.5) Lymph # 1.6 (1.2-3.4) [place] # 1.3 H (0.1-0.6) Eos # 0.0 (0.0-0.7) Baso # 0.02 (0.0-2.0) K/mm3 Sodium 140 (132-148) mmol/L Potassium 3.0 L (3.6-5.0) mmol/L Chloride 106 (98-107) mmol/L Carbon Dioxide 24 (21-33) mmol/L Anion Gap 12 (10-20) BUN 17 (7-21) mg/dL Creatinine 1.4 (0.8-1.5) mg/dl Est GFR ( Amer) > 60 Est GFR (Non-Af Amer) 54 Random Glucose 120 H (70-110) mg/dL Calcium 9.2 (8.4-10.5) mg/dL Phosphorus 1.8 L (2.5-4.5) mg/dL Magnesium 1.7 (1.7-2.2) mg/dL Total Bilirubin 1.2 (0.2-1.3) mg/dL AST 34 (17-59) U/L ALT 36 (7-56) U/L Alkaline Phosphatase 88 (38-126) U/L Lactate Dehydrogenase (333-699) U/L Total Creatine Kinase (35-230) U/L CK-MB (CK-2) (0.0-3.6) ng/mL CK-MB (CK-2) % Troponin I ng/mL Total Protein 7.1 (5.8-8.3) g/dL Albumin 3.8 (3.0-4.8) g/dL Globulin 3.3 gm/dL Albumin/Globulin Ratio 1.1 (1.1-1.8) Procalcitonin (0.19-0.49) NG/ML Urine Opiates Screen Negative (NEGATIVE) Urine Methadone Screen Negative (NEGATIVE) Ur Barbiturates Screen Negative (NEGATIVE) Ur Phencyclidine Scrn Negative (NEGATIVE) Ur Amphetamines Screen Negative (NEGATIVE) U Benzodiazepines Scrn Negative (NEGATIVE) U Oth Cocaine Metabols Negative (NEGATIVE) U Cannabinoids Screen Negative (NEGATIVE) Ur L.pneumophila Ag (NEGATIVE) 01/21/17 01/21/17 01/21/17 Range/Units 19:02 14:15 08:00 WBC (4.5-11.0) 10^3/ul RBC (3.5-6.1) 10^6/uL Hgb (14.0-18.0) g/dL Hct (42.0-52.0) % MCV (80.0-105.0) fl MCH (25.0-35.0) pg MCHC (31.0-37.0) g/dl RDW (11.5-14.5) % Plt Count (120.0-450.0) 10^3/uL Gran % (50.0-68.0) % Lymph % (Auto) (22.0-35.0) % [place] % (Auto) (1.0-6.0) % Eos % (Auto) (1.5-5.0) % Baso % (Auto) (0.0-3.0) % Gran # (1.4-6.5) Lymph # (1.2-3.4) [place] # (0.1-0.6) Eos # (0.0-0.7) Baso # (0.0-2.0) K/mm3 Sodium 139 (132-148) mmol/L Potassium 3.2 L 2.9 L* (3.6-5.0) mmol/L Chloride 101 (98-107) mmol/L Carbon Dioxide 28 (21-33) mmol/L Anion Gap 13 (10-20) BUN 17 (7-21) mg/dL Creatinine 1.5 (0.8-1.5) mg/dl Est GFR ( Amer) > 60 Est GFR (Non-Af Amer) 50 Random Glucose 119 H (70-110) mg/dL Calcium 9.5 (8.4-10.5) mg/dL Phosphorus (2.5-4.5) mg/dL Magnesium (1.7-2.2) mg/dL Total Bilirubin 0.9 (0.2-1.3) mg/dL AST 36 (17-59) U/L ALT 41 (7-56) U/L Alkaline Phosphatase 89 (38-126) U/L Lactate Dehydrogenase 624 (333-699) U/L Total Creatine Kinase 267 H (35-230) U/L CK-MB (CK-2) 1.0 (0.0-3.6) ng/mL CK-MB (CK-2) % Cancelled Troponin I 0.10 D ng/mL Total Protein 7.5 (5.8-8.3) g/dL Albumin 4.1 (3.0-4.8) g/dL Globulin 3.4 gm/dL Albumin/Globulin Ratio 1.2 (1.1-1.8) Procalcitonin 0.11 L (0.19-0.49) NG/ML Urine Opiates Screen (NEGATIVE) Urine Methadone Screen (NEGATIVE) Ur Barbiturates Screen (NEGATIVE) Ur Phencyclidine Scrn (NEGATIVE) Ur Amphetamines Screen (NEGATIVE) U Benzodiazepines Scrn (NEGATIVE) U Oth Cocaine Metabols (NEGATIVE) U Cannabinoids Screen (NEGATIVE) Ur L.pneumophila Ag (NEGATIVE) 01/21/17 Range/Units 00:15 WBC (4.5-11.0) 10^3/ul RBC (3.5-6.1) 10^6/uL Hgb (14.0-18.0) g/dL Hct (42.0-52.0) % MCV (80.0-105.0) fl MCH (25.0-35.0) pg MCHC (31.0-37.0) g/dl RDW (11.5-14.5) % Plt Count (120.0-450.0) 10^3/uL Gran % (50.0-68.0) % Lymph % (Auto) (22.0-35.0) % [place] % (Auto) (1.0-6.0) % Eos % (Auto) (1.5-5.0) % Baso % (Auto) (0.0-3.0) % Gran # (1.4-6.5) Lymph # (1.2-3.4) [place] # (0.1-0.6) Eos # (0.0-0.7) Baso # (0.0-2.0) K/mm3 Sodium (132-148) mmol/L Potassium (3.6-5.0) mmol/L Chloride (98-107) mmol/L Carbon Dioxide (21-33) mmol/L Anion Gap (10-20) BUN (7-21) mg/dL Creatinine (0.8-1.5) mg/dl Est GFR ( Amer) Est GFR (Non-Af Amer) Random Glucose (70-110) mg/dL Calcium (8.4-10.5) mg/dL Phosphorus (2.5-4.5) mg/dL Magnesium (1.7-2.2) mg/dL Total Bilirubin (0.2-1.3) mg/dL AST (17-59) U/L ALT (7-56) U/L Alkaline Phosphatase (38-126) U/L Lactate Dehydrogenase (333-699) U/L Total Creatine Kinase (35-230) U/L CK-MB (CK-2) (0.0-3.6) ng/mL CK-MB (CK-2) % Troponin I ng/mL Total Protein (5.8-8.3) g/dL Albumin (3.0-4.8) g/dL Globulin gm/dL Albumin/Globulin Ratio (1.1-1.8) Procalcitonin (0.19-0.49) NG/ML Urine Opiates Screen (NEGATIVE) Urine Methadone Screen (NEGATIVE) Ur Barbiturates Screen (NEGATIVE) Ur Phencyclidine Scrn (NEGATIVE) Ur Amphetamines Screen (NEGATIVE) U Benzodiazepines Scrn (NEGATIVE) U Oth Cocaine Metabols (NEGATIVE) U Cannabinoids Screen (NEGATIVE) Ur L.pneumophila Ag Negative (NEGATIVE) Laboratory Results - last 24 hr 01/21/17 01/21/17 01/21/17 00:15 08:00 14:15 WBC RBC Hgb Hct MCV MCH MCHC RDW Plt Count Gran % Lymph % (Auto) [place] % (Auto) Eos % (Auto) Baso % (Auto) Gran # Lymph # [place] # Eos # Baso # Sodium Potassium 2.9 L* Chloride Carbon Dioxide Anion Gap BUN Creatinine Est GFR ( Amer) Est GFR (Non-Af Amer) Random Glucose Calcium Phosphorus Magnesium Total Bilirubin AST ALT Alkaline Phosphatase Lactate Dehydrogenase 624 Total Creatine Kinase 267 H CK-MB (CK-2) 1.0 CK-MB (CK-2) % Cancelled Troponin I 0.10 D Total Protein Albumin Globulin Albumin/Globulin Ratio Procalcitonin 0.11 L Urine Opiates Screen Urine Methadone Screen Ur Barbiturates Screen Ur Phencyclidine Scrn Ur Amphetamines Screen U Benzodiazepines Scrn U Oth Cocaine Metabols U Cannabinoids Screen Ur L.pneumophila Ag Negative 01/21/17 01/21/17 01/22/17 19:02 23:03 05:00 WBC 14.6 H RBC 4.90 Hgb 13.9 L Hct 40.1 L MCV 81.8 MCH 28.4 MCHC 34.7 RDW 15.1 H Plt Count 126 Gran % 80.4 H Lymph % (Auto) 10.8 L [place] % (Auto) 8.6 H Eos % (Auto) 0.1 L Baso % (Auto) 0.1 Gran # 11.70 H Lymph # 1.6 [place] # 1.3 H Eos # 0.0 Baso # 0.02 Sodium 139 Potassium 3.2 L Chloride 101 Carbon Dioxide 28 Anion Gap 13 BUN 17 Creatinine 1.5 Est GFR ( Amer) > 60 Est GFR (Non-Af Amer) 50 Random Glucose 119 H Calcium 9.5 Phosphorus Magnesium Total Bilirubin 0.9 AST 36 ALT 41 Alkaline Phosphatase 89 Lactate Dehydrogenase Total Creatine Kinase CK-MB (CK-2) CK-MB (CK-2) % Troponin I Total Protein 7.5 Albumin 4.1 Globulin 3.4 Albumin/Globulin Ratio 1.2 Procalcitonin Urine Opiates Screen Negative Urine Methadone Screen Negative Ur Barbiturates Screen Negative Ur Phencyclidine Scrn Negative Ur Amphetamines Screen Negative U Benzodiazepines Scrn Negative U Oth Cocaine Metabols Negative U Cannabinoids Screen Negative Ur L.pneumophila Ag 01/22/17 05:00 WBC RBC Hgb Hct MCV MCH MCHC RDW Plt Count Gran % Lymph % (Auto) [place] % (Auto) Eos % (Auto) Baso % (Auto) Gran # Lymph # [place] # Eos # Baso # Sodium 140 Potassium 3.0 L Chloride 106 Carbon Dioxide 24 Anion Gap 12 BUN 17 Creatinine 1.4 Est GFR ( Amer) > 60 Est GFR (Non-Af Amer) 54 Random Glucose 120 H Calcium 9.2 Phosphorus 1.8 L Magnesium 1.7 Total Bilirubin 1.2 AST 34 ALT 36 Alkaline Phosphatase 88 Lactate Dehydrogenase Total Creatine Kinase CK-MB (CK-2) CK-MB (CK-2) % Troponin I Total Protein 7.1 Albumin 3.8 Globulin 3.3 Albumin/Globulin Ratio 1.1 Procalcitonin Urine Opiates Screen Urine Methadone Screen Ur Barbiturates Screen Ur Phencyclidine Scrn Ur Amphetamines Screen U Benzodiazepines Scrn U Oth Cocaine Metabols U Cannabinoids Screen Ur L.pneumophila Ag Review of Systems - Constitutional Constitutional: absent: Fever, Chills, Sweats - Cardiovascular Cardiovascular: absent: Chest Pain - Respiratory Respiratory: Cough, Dyspnea. absent: Wheezing - Gastrointestinal Gastrointestinal: As Per HPI - Genitourinary Genitourinary: absent: Change in Urinary Stream - Integumentary Integumentary: absent: Dry Skin - Neurological Neurological: As Per HPI Critical Care Progress Note - Nutrition Nutrition: Nutrition Category Date Time Status Heart Healthy Diet [DIET] Diets 01/20/17 Breakfast Ordered Assessment/Plan - Assessment and Plan (Free Text) Assessment: 46 M with PMH significant for hypertension presenting with hypertensive emergency, elevated troponins and suspected CAP Neuro: AAOx3, maintain normothermia, answering questions appropriately Pulm: Maintain SaO2 >90%, supportive O2 as neededkeep head of bed elevated 30 degrees, Duonebs PRN, Mucomyst, Tessalon Pearles, Phenergan PRN Cardio: Troponins downtrending (0.10), Continue to monitor blood pressure and heart rate, Coreg, Hydralazine, aldactone, Imdur GI: Pepcid for ppx, HHD Renal: Potassium Phosphate for hypokalemia, Magnesium sulfate x 1 and Neutrophos TID, Monitor electrolytes and replete as necessary, aldosterone/RA ratio, renal artery duplex, f/u Nephro recommendations Endo: Maintain euglycemia 140-180 Heme: Continue Lovenox, ASA, PLavix, Statin ID: Continue IV antibiotics per ID f/u sputum culture, f/u blood culture, f/u HIV test, Negative for flu a/b and legionella Ag <Carlos Enrique Vázquez - Last Filed: 01/22/17 13:07> CCU Objective - Vital Signs / Intake & Output Vital Signs (Last 4 hours): Vital Signs Temp Pulse Resp BP Pulse Ox 01/22/17 12:11 156/110 H 01/22/17 11:11 100.1 F H 01/22/17 11:10 116 H 32 H 93 L 01/22/17 11:02 113 H 14 190/100 H 90 L 01/22/17 11:00 114 H 24 01/22/17 10:50 117 H 57 H 01/22/17 10:40 116 H 51 H 01/22/17 10:30 115 H 62 H 01/22/17 10:20 115 H 40 H 01/22/17 10:10 118 H 28 H 01/22/17 10:06 116 H 196/102 H 01/22/17 10:05 114 H 177/103 H 01/22/17 10:00 118 H 56 H 196/132 H 100 01/22/17 09:56 119 H 45 H 177/113 H 01/22/17 09:50 117 H 51 H 96 01/22/17 09:40 117 H 42 H 97 01/22/17 09:30 115 H 40 H 100 01/22/17 09:20 116 H 55 H 98 01/22/17 09:13 116 H 190/105 H 01/22/17 09:10 115 H 49 H 100 Intake and Output (Last 8hrs): Intake & Output 01/21/17 01/22/17 01/22/17 22:59 06:59 14:59 Intake Total 1000 580 Output Total 1500 500 Balance -500 80 Weight 174 lb 6 oz Intake: IV 400 100 Left Forearm 400 100 Oral 600 480 Output: Urine 1500 500 Urine, Voided 1500 500 Other: # Voids Urine, Voided 4 # Bowel Movements 1 - Medications Active Medications: Active Medications Generic Name Dose Route Start Last Admin Trade Name Freq PRN Reason Stop Dose Admin Acetaminophen 650 mg 01/20/17 23:22 01/22/17 09:10 Tylenol 325mg Tab PO 650 mg Q4 PRN Administration Pain, moderate (4-7) Acetylcysteine 4 ml 01/22/17 08:00 Acetylcysteine 20% IH [id number] [place] Albuterol/Ipratropium 3 ml 01/21/17 14:40 Duoneb 3 Mg/0.5 Mg (3 Ml) Ud IH [id number] PRN Cough and congestion Alprazolam 0.5 mg 01/22/17 09:30 01/22/17 09:51 Xanax PO 0.5 mg BID PRN Administration Anxiety Protocol Aspirin 81 mg 01/21/17 10:00 01/22/17 09:11 Ecotrin PO 81 mg DAILY [place] Administration Atorvastatin Calcium 40 mg 01/21/17 17:00 01/21/17 17:06 Lipitor PO 40 mg DIN [place] Administration Benzonatate 100 mg 01/21/17 14:03 01/22/17 09:10 Tessalon Perles PO 100 mg TID PRN Administration Cough Carvedilol 12.5 mg 01/22/17 10:00 01/22/17 10:05 Coreg PO 12.5 mg BID [place] Administration Clopidogrel Bisulfate 75 mg 01/21/17 10:00 01/22/17 10:05 Plavix PO 75 mg DAILY MADE[place] Administration Diltiazem HCl 180 mg 01/22/17 10:15 Cardizem Cd PO DAILY MADE[place]INE Doxycycline Hyclate 100 mg 01/21/17 10:00 01/22/17 09:11 Doryx PO 100 mg Q12 MADE[place]INE Administration Protocol Enoxaparin Sodium 80 mg 01/21/17 11:00 01/22/17 10:06 Lovenox SC 80 mg Q12H M[place] Administration Protocol Famotidine 20 mg 01/23/17 10:00 Pepcid PO DAILY [place] Hydralazine HCl 25 mg 01/22/17 09:15 01/22/17 10:06 Apresoline PO 25 mg Q8H [place] Administration Cefepime HCl 2 gm in 100 mls @ 100 mls/hr 01/21/17 10:00 01/22/17 09:15 Maxipime 2gm IVPB 01/26/17 10:01 100 mls/hr Q12 MADELEINE Administration Protocol Potassium Phosphate 15 mmole/ 255 mls @ 42.5 mls/hr 01/22/17 07:41 01/22/17 09:14 Sodium Chloride IVPB 01/22/17 13:40 42.5 mls/hr ONCE ONE Administration Isosorbide Mononitrate 60 mg 01/22/17 10:00 01/22/17 11:07 Imdur PO 60 mg DAILY [place] Administration Levalbuterol HCl 1.25 mg 01/21/17 14:00 01/22/17 07:25 Xopenex IH 1.25 mg [id number] [place]ADE[place] Administration Potassium Phos/Sodium Phos 1 pkt 01/22/17 14:00 Neutra-Phos PO 01/23/17 23:00 TID M[place] Promethazine HCl/Codeine 5 ml 01/22/17 07:40 01/22/17 09:13 Phenergan/Codeine Oral Syrup PO 5 ml Q4H PRN Administration Cough and congestion Sodium Chloride 0 ml 01/21/17 14:41 01/21/17 15:55 [place] Nasal [place] NS 2 sprays Q4H PRN Administration Nasal congestion Spironolactone 25 mg 01/22/17 10:00 01/22/17 10:05 Aldactone PO 25 mg BID M[place] Administration - Patient Studies Lab Studies: Microbiology Studies 01/21/17 00:45 MRSA Culture (Admit) - Final Nose MRSA NOT DETECTED Lab Studies 01/22/17 01/22/17 01/21/17 Range/Units 05:00 05:00 23:03 WBC 14.6 H (4.5-11.0) 10^3/ul RBC 4.90 (3.5-6.1) 10^6/uL Hgb 13.9 L (14.0-18.0) g/dL Hct 40.1 L (42.0-52.0) % MCV 81.8 (80.0-105.0) fl MCH 28.4 (25.0-35.0) pg MCHC 34.7 (31.0-37.0) g/dl RDW 15.1 H (11.5-14.5) % Plt Count 126 (120.0-450.0) 10^3/uL Gran % 80.4 H (50.0-68.0) % Lymph % (Auto) 10.8 L (22.0-35.0) % [place] % (Auto) 8.6 H (1.0-6.0) % Eos % (Auto) 0.1 L (1.5-5.0) % Baso % (Auto) 0.1 (0.0-3.0) % Gran # 11.70 H (1.4-6.5) Lymph # 1.6 (1.2-3.4) [place] # 1.3 H (0.1-0.6) Eos # 0.0 (0.0-0.7) Baso # 0.02 (0.0-2.0) K/mm3 Sodium 140 (132-148) mmol/L Potassium 3.0 L (3.6-5.0) mmol/L Chloride 106 (98-107) mmol/L Carbon Dioxide 24 (21-33) mmol/L Anion Gap 12 (10-20) BUN 17 (7-21) mg/dL Creatinine 1.4 (0.8-1.5) mg/dl Est GFR ( Amer) > 60 Est GFR (Non-Af Amer) 54 Random Glucose 120 H (70-110) mg/dL Calcium 9.2 (8.4-10.5) mg/dL Phosphorus 1.8 L (2.5-4.5) mg/dL Magnesium 1.7 (1.7-2.2) mg/dL Total Bilirubin 1.2 (0.2-1.3) mg/dL AST 34 (17-59) U/L ALT 36 (7-56) U/L Alkaline Phosphatase 88 (38-126) U/L Lactate Dehydrogenase (333-699) U/L Total Creatine Kinase (35-230) U/L CK-MB (CK-2) (0.0-3.6) ng/mL CK-MB (CK-2) % Troponin I ng/mL Total Protein 7.1 (5.8-8.3) g/dL Albumin 3.8 (3.0-4.8) g/dL Globulin 3.3 gm/dL Albumin/Globulin Ratio 1.1 (1.1-1.8) Urine Opiates Screen Negative (NEGATIVE) Urine Methadone Screen Negative (NEGATIVE) Ur Barbiturates Screen Negative (NEGATIVE) Ur Phencyclidine Scrn Negative (NEGATIVE) Ur Amphetamines Screen Negative (NEGATIVE) U Benzodiazepines Scrn Negative (NEGATIVE) U Oth Cocaine Metabols Negative (NEGATIVE) U Cannabinoids Screen Negative (NEGATIVE) 01/21/17 01/21/17 Range/Units 19:02 14:15 WBC (4.5-11.0) 10^3/ul RBC (3.5-6.1) 10^6/uL Hgb (14.0-18.0) g/dL Hct (42.0-52.0) % MCV (80.0-105.0) fl MCH (25.0-35.0) pg MCHC (31.0-37.0) g/dl RDW (11.5-14.5) % Plt Count (120.0-450.0) 10^3/uL Gran % (50.0-68.0) % Lymph % (Auto) (22.0-35.0) % [place] % (Auto) (1.0-6.0) % Eos % (Auto) (1.5-5.0) % Baso % (Auto) (0.0-3.0) % Gran # (1.4-6.5) Lymph # (1.2-3.4) [place] # (0.1-0.6) Eos # (0.0-0.7) Baso # (0.0-2.0) K/mm3 Sodium 139 (132-148) mmol/L Potassium 3.2 L 2.9 L* (3.6-5.0) mmol/L Chloride 101 (98-107) mmol/L Carbon Dioxide 28 (21-33) mmol/L Anion Gap 13 (10-20) BUN 17 (7-21) mg/dL Creatinine 1.5 (0.8-1.5) mg/dl Est GFR ( Amer) > 60 Est GFR (Non-Af Amer) 50 Random Glucose 119 H (70-110) mg/dL Calcium 9.5 (8.4-10.5) mg/dL Phosphorus (2.5-4.5) mg/dL Magnesium (1.7-2.2) mg/dL Total Bilirubin 0.9 (0.2-1.3) mg/dL AST 36 (17-59) U/L ALT 41 (7-56) U/L Alkaline Phosphatase 89 (38-126) U/L Lactate Dehydrogenase 624 (333-699) U/L Total Creatine Kinase 267 H (35-230) U/L CK-MB (CK-2) 1.0 (0.0-3.6) ng/mL CK-MB (CK-2) % Cancelled Troponin I 0.10 D ng/mL Total Protein 7.5 (5.8-8.3) g/dL Albumin 4.1 (3.0-4.8) g/dL Globulin 3.4 gm/dL Albumin/Globulin Ratio 1.2 (1.1-1.8) Urine Opiates Screen (NEGATIVE) Urine Methadone Screen (NEGATIVE) Ur Barbiturates Screen (NEGATIVE) Ur Phencyclidine Scrn (NEGATIVE) Ur Amphetamines Screen (NEGATIVE) U Benzodiazepines Scrn (NEGATIVE) U Oth Cocaine Metabols (NEGATIVE) U Cannabinoids Screen (NEGATIVE) Laboratory Results - last 24 hr 01/21/17 01/21/17 01/21/17 14:15 19:02 23:03 WBC RBC Hgb Hct MCV MCH MCHC RDW Plt Count Gran % Lymph % (Auto) [place] % (Auto) Eos % (Auto) Baso % (Auto) Gran # Lymph # [place] # Eos # Baso # Sodium 139 Potassium 2.9 L* 3.2 L Chloride 101 Carbon Dioxide 28 Anion Gap 13 BUN 17 Creatinine 1.5 Est GFR ( Amer) > 60 Est GFR (Non-Af Amer) 50 Random Glucose 119 H Calcium 9.5 Phosphorus Magnesium Total Bilirubin 0.9 AST 36 ALT 41 Alkaline Phosphatase 89 Lactate Dehydrogenase 624 Total Creatine Kinase 267 H CK-MB (CK-2) 1.0 CK-MB (CK-2) % Cancelled Troponin I 0.10 D Total Protein 7.5 Albumin 4.1 Globulin 3.4 Albumin/Globulin Ratio 1.2 Urine Opiates Screen Negative Urine Methadone Screen Negative Ur Barbiturates Screen Negative Ur Phencyclidine Scrn Negative Ur Amphetamines Screen Negative U Benzodiazepines Scrn Negative U Oth Cocaine Metabols Negative U Cannabinoids Screen Negative 01/22/17 01/22/17 05:00 05:00 WBC 14.6 H RBC 4.90 Hgb 13.9 L Hct 40.1 L MCV 81.8 MCH 28.4 MCHC 34.7 RDW 15.1 H Plt Count 126 Gran % 80.4 H Lymph % (Auto) 10.8 L [place] % (Auto) 8.6 H Eos % (Auto) 0.1 L Baso % (Auto) 0.1 Gran # 11.70 H Lymph # 1.6 [place] # 1.3 H Eos # 0.0 Baso # 0.02 Sodium 140 Potassium 3.0 L Chloride 106 Carbon Dioxide 24 Anion Gap 12 BUN 17 Creatinine 1.4 Est GFR ( Amer) > 60 Est GFR (Non-Af Amer) 54 Random Glucose 120 H Calcium 9.2 Phosphorus 1.8 L Magnesium 1.7 Total Bilirubin 1.2 AST 34 ALT 36 Alkaline Phosphatase 88 Lactate Dehydrogenase Total Creatine Kinase CK-MB (CK-2) CK-MB (CK-2) % Troponin I Total Protein 7.1 Albumin 3.8 Globulin 3.3 Albumin/Globulin Ratio 1.1 Urine Opiates Screen Urine Methadone Screen Ur Barbiturates Screen Ur Phencyclidine Scrn Ur Amphetamines Screen U Benzodiazepines Scrn U Oth Cocaine Metabols U Cannabinoids Screen Critical Care Progress Note - Nutrition Nutrition: Nutrition Category Date Time Status Heart Healthy Diet [DIET] Diets 01/20/17 Breakfast Ordered Assessment/Plan - Assessment and Plan (Free Text) Assessment: Pt seen and examined, on rounds with resident, agree with note, with following additions/exceptions: Pt is 46yo male a/w hypertensive emergency, elevated troponin and RML/RLL PNA. Currently afebrile, HD stable, comfortable on 2LNC, sat 92%. On exam has bibasilar crackles. CXR with bilat alveolar infiltrates likely signifying possibly volume overload, given EF 20%, will give dose IV Lasix 40mg. PNA CHF, Acute decompensated HTN urgency Elevated Troponin Recommend: - supp o2 as needed - antibiotics as per ID - BP control - COreg, Imdur, Hydralazine - IV Lasix 40mg IV x 1 - Strict I/Os - follow up cardiology, may need cadiac cath - duonebs PRN - follow up ID - ASA, Plavix, Statin, Lovenox - DVT ppx, Lovenox - GI ppx - Monitor in micu Critical care time 40 minutes
[2017-01-22] MEDS ORDERED: NIFEdipine 30 mg ER Tab PO SCH (10:00)
[2017-01-22] MEDS ORDERED: Potassium & Sodium Phosphate PO SCH (10:00)
[2017-01-22] MEDS: Enoxaparin 80 mg Syringe SC SCH ×2 (10:06→23:00)
--- NOTE | 2017-01-22 11:08 | RAD ---
HISTORY: cough, pneumonia COMPARISON: 01/20/2017 FINDINGS: LUNGS: There is an increasing extensive alveolar infiltrate. This could represent pulmonary edema or pneumonia PLEURA: No significant pleural effusion identified, no pneumothorax apparent. CARDIOVASCULAR: Mild cardiomegaly OSSEOUS STRUCTURES: No significant abnormalities. VISUALIZED UPPER ABDOMEN: Normal. OTHER FINDINGS: None. IMPRESSION: There is an increasing extensive alveolar infiltrate. This could represent pulmonary edema or pneumonia
--- NOTE | 2017-01-22 13:14 | PN ---
DATE: 01/22/2017 SUBJECTIVE: The patient is seen early this morning in 128, bed 4, is comfortable. No fevers reported and unremarkable night as per the nurse who took care of the patient last night. OBJECTIVE: VITAL SIGNS: The patient's temperature of 99.3, heart rate of 113, blood pressure is 180/90, and respiratory rate of 24. HEENT: Unremarkable. NECK: Supple. LUNGS: Have decreased breath sounds. HEART: Normal S1 and S2. ABDOMEN: Soft. LABORATORY DATA: Reveals white count of 14,600, hemoglobin of 13, and platelets of 126. BUN of 17 and creatinine of 1.4. Procalcitonin is 0.11. Urinalysis is noted. Influenza is negative. Urine for Legionella antigen is negative. Microbiology is noted. Review of orders reveals the HIV test is pending and the patient is on doxycycline and cefepime. He was given a dose of vancomycin. Echo results from yesterday read by Dr. Ponce is noted. Dr. Velez's consultation from yesterday is reviewed. ASSESSMENT AND PLAN: This is a 46-year-old male who was admitted with cough productive, fevers with chest x-ray from the 10th with bibasilar opacities with sepsis, with severe community-acquired pneumonia on intermittent vancomycin, cefepime, and doxycycline, pending the HIV testing. Thus far the blood cultures are reported to be negative. Urine for Legionella is negative. Influenza is negative and procalcitonin is low speaks against bacterial pneumonia and one positive troponin 0.13. We will check on the final culture results. Review of his temperature curve reveals the patient's highest temperature was 99.7. Overall, we will continue the present course. Herbert Steven MD
--- NOTE | 2017-01-22 13:25 | PN ---
DATE: 01/22/2017 REASON FOR CONSULTATION AND FOLLOWUP: Cardiac evaluation, rule out code STEMI, rule out non-STEMI. SUBJECTIVE: The patient denies any palpitations, but complains of chest pain left sided on taking a deep breath associated with the cough. OBJECTIVE: GENERAL: Appears in mild respiratory distress, still in ICU. The patient appears sicker than vitals. VITAL SIGNS: Vitals temperature as follows: Heart rate 113, blood pressure 190/105. HEENT: PERRLA intact. NECK: Supple. No carotid bruits or thyromegaly. CHEST: Decreased air entry at the bases. HEART: S1 and S2 regular, tachycardic. ABDOMEN: Soft. EXTREMITIES: Clubbing and cyanosis negative. LABORATORY DATA: Blood workup: WBC 14.6, hemoglobin 13.9, hematocrit 40.1, and platelet count 126. Chemistry shows sodium 140, potassium 3, chloride 106, carbon dioxide 24, anion gap of 12, BUN 17, and creatinine is 1.4. Phosphorus 1.8, troponin 0.13. IMPRESSION: These borderline troponin mostly likely secondary to hemodynamic instability, underlying right lower lobe pneumonia, hypokalemia, rule out hyperaldosteronism, uncontrolled hypertension, rule out human immunodeficiency virus, and aggressive control of blood pressure. ASSESSMENT AND PLAN: The patient is ALLERGIC TO [employer], GOT ANGIOEDEMA ON HYDROCHLOROTHIAZIDE. We will avoid it. We will start beta-kayy, increase the Cardizem, and p.r.n. hydralazine. Aggressive control of blood pressure. Once his symptoms improve and patient is able to lye flat, consider cardiac catheterize because borderline troponin positive, though it is most likely secondary to hemodynamics, so cannot rule out underlying coronary artery disease. Discussed with resident, will follow with you. We will do the cardiac catheterization and also look the renal artery to rule out renal artery stenosis. We will follow with you. Rhea Velez MD
[2017-01-22] MEDS: Acetylcysteine 20% Inhal Soln (4ml) IH SCH ×3 (13:46→20:00)
[2017-01-22] MEDS: Potassium & Sodium Phosphate PO SCH ×2 (14:35→18:17)
[2017-01-22] MEDS: diltiaZEM 180 mg/24 Hours CD Cap PO SCH (14:35)
[2017-01-22] MEDS: Nicardipine 20 MG/200 ML 20 MG/200 ML BAG IV PRN ×2 (14:57→19:12)
--- NOTE | 2017-01-22 15:35 | CP.PCM.PN ---
<Beny Stanley - Last Filed: 01/22/17 16:30> Subjective - Date & Time of Evaluation Date of Evaluation: 01/22/17 Time of Evaluation: 09:33 - Subjective Subjective: Patient seen and examined at bedside. Per nursing patient's blood pressure was elevated. The patient reports not getting any sleep last night due to his cough . The patient denies any chest pain, lightheadedness, dizziness, nausea , vomiting, constipation, diarrhea, or any other complaints. Objective - Vital Signs/Intake and Output Vital Signs (last 24 hours): Temp Pulse Resp BP Pulse Ox 100.2 F H 116 H 32 H 182/101 H 93 L 01/22/17 14:34 01/22/17 14:57 01/22/17 11:10 01/22/17 14:57 01/22/17 11:10 Intake and Output: 01/22/17 01/22/17 06:59 18:59 Intake Total 580 Output Total 500 Balance 80 - Medications Medications: Current Medications Acetaminophen (Tylenol 325mg Tab) 650 mg PO Q4 PRN PRN Reason: Pain, moderate (4-7) Last Admin: 01/22/17 14:34 Dose: 650 mg Acetylcysteine (Acetylcysteine 20%) 4 ml [id number] Last Admin: 01/22/17 14:23 Dose: Not Given Albuterol/Ipratropium (Duoneb 3 Mg/0.5 Mg (3 Ml) Ud) 3 ml IH [id number] PRN PRN Reason: Cough and congestion Alprazolam (Xanax) 0.5 mg PO BID PRN; Protocol PRN Reason: Anxiety Last Admin: 01/22/17 09:51 Dose: 0.5 mg Aspirin (Ecotrin) 81 mg PO DAILY [facility] Last Admin: 01/22/17 09:11 Dose: 81 mg Atorvastatin Calcium (Lipitor) 40 mg PO DIN [facility] Last Admin: 01/21/17 17:06 Dose: 40 mg Benzonatate (Tessalon Perles) 100 mg PO TID PRN PRN Reason: Cough Last Admin: 01/22/17 09:10 Dose: 100 mg Carvedilol (Coreg) 12.5 mg PO BID [facility] Last Admin: 01/22/17 10:05 Dose: 12.5 mg Clopidogrel Bisulfate (Plavix) 75 mg PO [facility]ILY [facility] Last Admin: 01/22/17 10:05 Dose: 75 mg Diltiazem HCl (Cardizem Cd) 180 mg PO [facility]ILY [facility] Last Admin: 01/22/17 14:35 Dose: 180 mg Doxycycline Hyclate (Doryx) 100 mg PO Q12 [place] PRN Reason: Protocol Last Admin: 01/22/17 09:11 Dose: 100 mg Enoxaparin Sodium (Lovenox) 80 mg SC Q12H [place] PRN Reason: Protocol Last Admin: 01/22/17 10:06 Dose: 80 mg Famotidine (Pepcid) 20 mg PO [facility]ILY [facility] Hydralazine HCl (Apresoline) 25 mg PO Q8H [facility] Last Admin: 01/22/17 10:06 Dose: 25 mg Cefepime HCl (Maxipime 2gm) 2 gm in 100 mls @ 100 mls/hr IVPB Q12 [place] PRN Reason: Protocol Stop: 01/26/17 10:01 Last Admin: 01/22/17 09:15 Dose: 100 mls/hr Nicardipine HCl (Cardene Iv Premix) 20 mg in 200 mls @ 50 mls/hr IV .Q4H PRN; Protocol; 5 MG/HR PRN Reason: TITRATE PER MD ORDER Last Admin: 01/22/17 14:57 Dose: 5 mg/hr, 50 mls/hr Isosorbide Mononitrate (Imdur) 60 mg PO [facility]ILY [facility] Last Admin: 01/22/17 11:07 Dose: 60 mg Levalbuterol HCl (Xopenex) 1.25 mg IH [id number] Last Admin: 01/22/17 13:50 Dose: 1.25 mg Potassium Phos/Sodium Phos (Neutra-Phos) 1 pkt PO TID [facility] Stop: 01/23/17 23:00 Last Admin: 01/22/17 14:35 Dose: 1 pkt Promethazine HCl/Codeine (Phenergan/Codeine Oral Syrup) 5 ml PO Q4H PRN PRN Reason: Cough and congestion Last Admin: 01/22/17 14:36 Dose: 5 ml Sodium Chloride ([place] Nasal [place]) 0 ml NS Q4H PRN PRN Reason: Nasal congestion Last Admin: 01/21/17 15:55 Dose: 2 sprays Spironolactone (Aldactone) 25 mg PO BID [place] Last Admin: 01/22/17 10:05 Dose: 25 mg - Labs Labs: 01/22/17 05:00 01/22/17 05:00 PT 12.1 SECONDS (9.4-12.5) 01/20/17 19:00 INR 1.11 (0.93-1.08) H 01/20/17 19:00 APTT 28.5 Seconds (25.1-36.5) 01/20/17 19:00 - Head Exam Head Exam: ATRAUMATIC, NORMAL INSPECTION, NORMOCEPHALIC - Eye Exam Eye Exam: EOMI, Normal appearance, PERRL. absent: Periorbital tenderness Pupil Exam: NORMAL ACCOMODATION, PERRL. absent: Irregular, Unequal - ENT Exam ENT Exam: Mucous Membranes Moist, Normal Oropharynx - Neck Exam Neck Exam: Normal Inspection. absent: Lymphadenopathy, Thyromegaly - Respiratory Exam Respiratory Exam: Decreased Breath Sounds. absent: Accessory Muscle Use, NORMAL BREATHING PATTERN - Cardiovascular Exam Cardiovascular Exam: REGULAR RHYTHM, +S1, +S2 - GI/Abdominal Exam GI & Abdominal Exam: Soft, Normal Bowel Sounds. absent: Hyperactive Bowel Sounds - Extremities Exam Extremities Exam: Full ROM. absent: Joint Swelling, Pedal Edema, Tenderness - Back Exam Back Exam: absent: CVA tenderness (L), CVA tenderness (R), paraspinal tenderness - Neurological Exam Neurological Exam: Alert, Awake, CN II-XII Intact, Normal Gait, Oriented x3 - Psychiatric Exam Psychiatric exam: Normal Affect, Normal Mood - Skin Skin Exam: Dry, Intact Assessment and Plan - Assessment and Plan (Free Text) Assessment: Patient is a 46yo male who presents to the emergency department via EMS for evaluation and treatment of nasal congestion, production cough with pleghm which began 2 days ago without any provoking event. Plan: Neurological Headache -AOX3. No cognitive deficits appreciated. - 2/2 elevated BP - Continue prn tylenol ordered - head CT- no acute intracranial abnormalities Cardiology Hypertensive Emergency -BP elevated at 187/96 upon examination today. Will continue to monitor. -Patient states he was only on Norvasc in [place] per the . -Serum aldosterone ordered. Will f/u with results. -Nicardipine drip. Chest Pain - rule out ACS - EKG reviewed and appreciated - t wave inversions in the lateral leads - cardiac enzymes q8h x 3, Troponins: .14, .17, .13- as per ED physician Dr. Velez was contacted to review patient EKG- the abnormality in the precordial leads is secondary to ventricular strain in the setting of sepsis. Will continue to monitor closely. - lipid profile: Triglycerides: 154, Cholesterol: 156, LDL: 117, and HDL :34 -Patient states he had an ECHO done in the past that was normal (unsure of the year). Patient also had two Cardiac cath's done in the past and he reports they said there was no occlusion or blockages found. Will try and obtain records from hospital. - ECHO showed EF 20.3%, left ventricle mildly dilated, mild concentric LVH, systolic function severely imparied, Grade 1-abnormal relaxation pattern, Mitral regurgitation moderate, milde pulmonary hypertension, and a small apical thrombus - cardiology consulted- rec's appreciated.-Continue plavix and lovenox. -Patient expected to undergo cardiac cath either 01/23/17 or 01/24/17 pending improvement in clinical course. -Dietitian eval ordered. Will f/u with rec's. Pulmonary/Infectious Disease Sepsis; Pneumonia - greater than 2/4 SIRS criteria met in setting of infectious source ( elevated WBC and HR > 90) - CXR- showing bibasilar opacity -Blood cx (-)x24 hours, Sputum cultures pending. -Influenza (-). Legionella (-). - Strep pneumonia, Mycoplasma. Will f/u with results. - levaquin and zosyn given in ED, Continue doxycycline and Cefepime for CAP coverage. - infectious disease consulted. Rec's appreciated. -Coninue Robutussin .Continue Nasal saline spray. Nephrology MARY - BUN and creatinine noted and appreciated - likely 2/2 hypertensive state - no IVF at this time in the setting of the hypertension. Will continue to monitor Electrolyte Abnormality - hypokalemia- repleted. - magnesium repleted. -Will continue to monitor and replete as necessary with serial cmp's. Prophylaxis - DVT ppx- patient is on lovenox - GI ppx- famotidine <Bryan Jaqueza - Last Filed: 01/22/17 16:42> Objective - Vital Signs/Intake and Output Vital Signs (last 24 hours): Temp Pulse Resp BP Pulse Ox 100.2 F H 116 H 32 H 182/101 H 93 L 01/22/17 14:34 01/22/17 14:57 01/22/17 11:10 01/22/17 14:57 01/22/17 11:10 Intake and Output: 01/22/17 01/22/17 06:59 18:59 Intake Total 580 Output Total 500 Balance 80 - Medications Medications: Current Medications Acetaminophen (Tylenol 325mg Tab) 650 mg PO Q4 PRN PRN Reason: Pain, moderate (4-7) Last Admin: 01/22/17 14:34 Dose: 650 mg Acetylcysteine (Acetylcysteine 20%) 4 ml IH [id number] [place] Last Admin: 01/22/17 14:23 Dose: Not Given Albuterol/Ipratropium (Duoneb 3 Mg/0.5 Mg (3 Ml) Ud) 3 ml IH [id number] PRN PRN Reason: Cough and congestion Alprazolam (Xanax) 0.5 mg PO BID PRN; Protocol PRN Reason: Anxiety Last Admin: 01/22/17 09:51 Dose: 0.5 mg Aspirin (Ecotrin) 81 mg PO [facility] Last Admin: 01/22/17 09:11 Dose: 81 mg Atorvastatin Calcium (Lipitor) 40 mg PO [facility]IN [facility] Last Admin: 01/21/17 17:06 Dose: 40 mg Benzonatate (Tessalon Perles) 100 mg PO TID PRN PRN Reason: Cough Last Admin: 01/22/17 09:10 Dose: 100 mg Carvedilol (Coreg) 12.5 mg PO BID [facility] Last Admin: 01/22/17 10:05 Dose: 12.5 mg Clopidogrel Bisulfate (Plavix) 75 mg PO [facility]ILY [facility] Last Admin: 01/22/17 10:05 Dose: 75 mg Diltiazem HCl (Cardizem Cd) 180 mg PO [facility]ILY [facility] Last Admin: 01/22/17 14:35 Dose: 180 mg Doxycycline Hyclate (Doryx) 100 mg PO Q12 [place] PRN Reason: Protocol Last Admin: 01/22/17 09:11 Dose: 100 mg Enoxaparin Sodium (Lovenox) 80 mg SC Q12H [place] PRN Reason: Protocol Last Admin: 01/22/17 10:06 Dose: 80 mg Famotidine (Pepcid) 20 mg PO [facility] Hydralazine HCl (Apresoline) 25 mg PO Q8H [facility] Last Admin: 01/22/17 10:06 Dose: 25 mg Cefepime HCl (Maxipime 2gm) 2 gm in 100 mls @ 100 mls/hr IVPB Q12 [place] PRN Reason: Protocol Stop: 01/26/17 10:01 Last Admin: 01/22/17 09:15 Dose: 100 mls/hr Nicardipine HCl (Cardene Iv Premix) 20 mg in 200 mls @ 50 mls/hr IV .Q4H PRN; Protocol; 5 MG/HR PRN Reason: TITRATE PER MD ORDER Last Admin: 01/22/17 14:57 Dose: 5 mg/hr, 50 mls/hr Isosorbide Mononitrate (Imdur) 60 mg PO [facility]ILY [facility] Last Admin: 01/22/17 11:07 Dose: 60 mg Levalbuterol HCl (Xopenex) 1.25 mg IH [id number] Last Admin: 01/22/17 13:50 Dose: 1.25 mg Potassium Phos/Sodium Phos (Neutra-Phos) 1 pkt PO TID [facility] Stop: 01/23/17 23:00 Last Admin: 01/22/17 14:35 Dose: 1 pkt Promethazine HCl/Codeine (Phenergan/Codeine Oral Syrup) 5 ml PO Q4H PRN PRN Reason: Cough and congestion Last Admin: 01/22/17 14:36 Dose: 5 ml Sodium Chloride ([place] Nasal [place]) 0 ml NS Q4H PRN PRN Reason: Nasal congestion Last Admin: 01/21/17 15:55 Dose: 2 sprays Spironolactone (Aldactone) 25 mg PO BID [facility] Last Admin: 01/22/17 10:05 Dose: 25 mg - Labs Labs: 01/22/17 05:00 01/22/17 05:00 PT 12.1 SECONDS (9.4-12.5) 01/20/17 19:00 INR 1.11 (0.93-1.08) H 01/20/17 19:00 APTT 28.5 Seconds (25.1-36.5) 01/20/17 19:00 Attending/Attestation - Attestation I have personally seen and examined this patient.: Yes I have fully participated in the care of the patient.: Yes I have reviewed all pertinent clinical information, including history, physical exam and plan: Yes Notes (Text): 01/22/17 16:37 attending note; Patient seen and examined with resident. Patient is a 46-year-old male with a past medical history of hypertension, noncompliance with follow-up, asthma was admitted with cough and shortness of breath, nasal congestion and hypertensive emergency. Hypertensive emergency; treated with IV Nicardipine drip. still with high blood pressure. started on by mouth Coreg, Imdur, hydralazine and Aldactone. Chest x-ray showed bibasilar opacities. Currently on doxycycline and cefepime. ID evaluation appreciated. continue DuoNeb treatment. Positive troponin; secondary to hypertensive Emergency/demand ischemia. medications adjusted by cardiology. Continue aspirin, Plavix and Lovenox. Cardiology evaluation with Dr. Velez appreciated. echocardiogram showed ejection fraction 20%. Plan for cardiac cath in few days. Hypokalemia; continue IV supplementation. renin and aldosterone level ordered. possible hyperaldosteronism. The diagnosis, treatment option explained to the patient in detail. Dietitian evaluation requested. Need for medication compliance insisted. case coordinator evaluation requested for discharge planning. Upon discharge the patient will follow up with PMD of choice.
[2017-01-23] MEDS: Acetylcysteine 20% Inhal Soln (4ml) IH SCH ×3 (02:12→13:14)
[2017-01-23 05:40] LABS: BASO # 0.03 K/mm3 (0.0-2.0); BASO % 0.3 % (0.0-3.0); EOS # 0.1 (0.0-0.7); EOS % 0.9 % (1.5-5.0); GRAN # 7.47 (1.4-6.5); HEMATOCRIT 37.7 % (42.0-52.0); LYMPH # 2.6 (1.2-3.4); LYMPH % 22.6 % (22.0-35.0); MEAN CELL VOLUME 82.1 fl (80.0-105.0); MEAN CORPUSCULAR HEMOGLOBIN 28.1 pg (25.0-35.0); MEAN CORPUSCULAR HGB CONC 34.2 g/dl (31.0-37.0); MEAN PLATELET VOLUME 12.8 fl (7.0-11.0); MONO # 1.2 (0.1-0.6); MONO % 10.2 % (1.0-6.0); RED CELL DISTRIBUTION WIDTH 15.3 % (11.5-14.5); SODIUM 140 mmol/L (132-148); WHITE BLOOD COUNT 11.3 10^3/ul (4.5-11.0)
[2017-01-23 05:57] LABS: ALKALINE PHOSPHATASE 80 U/L (38-126); ALT/SGPT 37 U/L (7-56); AST/SGOT 24 U/L (17-59); BILIRUBIN,TOTAL 1.2 mg/dL (0.2-1.3); BLOOD UREA NITROGEN 20 mg/dL (7-21); CALCIUM 8.8 mg/dL (8.4-10.5); CARBON DIOXIDE 28 mmol/L (21-33); CHLORIDE 104 mmol/L (98-107); GFR AFRICAN-AMERICAN > 60; GLUCOSE,RANDOM 107 mg/dL (70-110); PHOSPHOROUS 3.7 mg/dL (2.5-4.5); POTASSIUM 2.7 mmol/L (3.6-5.0); TOTAL PROTEIN 7.2 g/dL (5.8-8.3)
--- NOTE | 2017-01-23 08:48 | RAD ---
HISTORY: f/u COMPARISON: 01/22/2017 -10:26 a.m. FINDINGS: LUNGS: The diffuse coalescent airspace opacity are bilaterally less an interval decreased pulmonary interstitial and alveolar edema inferred. Interval obliteration left hemidiaphragm -left basal interval infiltrate and/or atelectasis. Small left pleural effusion here -possible PLEURA: No significant pleural effusion identified, no pneumothorax apparent. CARDIOVASCULAR: Cardiomegaly. Pulmonary venous congestion -less than before -as above OSSEOUS STRUCTURES: No significant abnormalities. VISUALIZED UPPER ABDOMEN: Normal. OTHER FINDINGS: None. IMPRESSION: The bilateral diffuse pulmonary interstitial and alveolar edema is bilaterally less . Interval left basal consolidation - atelectasis versus infiltrate. Here small left pleural effusion-possible Cardiomegaly-similar
--- NOTE | 2017-01-23 09:01 | PN ---
DATE: 01/23/2017 SUBJECTIVE: The patient is in bed in no acute distress, nontoxic. PHYSICAL EXAMINATION: VITAL SIGNS: Temperature is 99. He did have a T-max of 100.2 yesterday, blood pressure is 150/90, respiratory rate of 23, and heart rate of 94. HEENT: Unremarkable. NECK: Supple. LUNGS: Have decreased breath sounds. HEART: Normal S1 and S2. ABDOMEN: Soft and nontender. LABORATORY DATA: Reveals white count is down to 11,300, hemoglobin of 12, and platelets of 125. Coagulation is noted. The chemistries reveals BUN of 20 and creatinine of 1.4. Urinalysis is noted. Serology is negative for urine for Legionella antigen is negative, HIV is negative, and hepatitis profile is negative. Microbiology reveals the blood cultures are negative and nasal MRSA is negative. Review of orders reveals the patient to be on p.o. doxycycline and IV cefepime. Review of the chest x-ray from this morning, the report is not available, yesterday chest x-ray reveals the increasing extensive alveolar infiltrate would represent pulmonary edema. Of note is the patient's procalcitonin is 0.11. ASSESSMENT AND PLAN: This Is a 46-year-old male seen in the ICU 128, bed 4, with sepsis, with severe community-acquired pneumonia on cefepime and doxycycline, with all cultures negative, negative procalcitonin, and negative urine Legionella antigen and he appears to be improving on cefepime, and the patient was given an initial dose of vancomycin. The patient is also on p.o. doxycycline. We will repeat the procalcitonin this morning. Follow the patient closely with you. Herbert Steven MD
[2017-01-23] MEDS: Levalbuterol 1.25 MG/3 ML Inhal Soln UD IH SCH ×3 (09:13→21:29)
--- NOTE | 2017-01-23 09:32 | CP.PCM.CON ---
<Kaya Brandon - Last Filed: 01/23/17 11:39> History of Present Illness - History of Present Illness History of Present Illness: PGYII progress note for nephrology, Dr. Nix 46 year old male with past medical history of HTN and CAD presented to hospital for nonproductive cough, chest congestion x 2 days and a gradually developing headache. In the emergency department, patient was noted to have blood pressure around 180s/110. Nephrology is consulted for uncontrollable hypertension. Patient states that he traveled to [place] about 2 weeks ago and forgot to take his blood pressure medication with him when traveling. Therefore, pt has not taken his medication for over 2 weeks. Patient states for past 2 weeks, he has developed SOB with exertion. Patient also c/o palpitations for over 6 months. Patient denies having any CP, abd pain, N/V/D/C , F/C. Patient still complains of ORTEGA located on occipital region. Patient denies having any vision changes or blurry vision. PMHx: HTN, CAD s/p 2 cardiac caths in past, hypokalemia PSHx: none Allergies: KELIN inhibitors (swelling), HCTZ Family Hx: mother- breast cancer & HTN, father- "throat cancer" Social Hx: social ETOH use, former tobacco use quit 20 years ago smoked 1/2 ppd for years, former illicit drug use- marijuana and cocaine in the 1980s quit since then Medications: amlodipine, potassium supplement PMD: travels to [place] for work Pharmacy: from [place] does not have local pharmacy Review of Systems - Constitutional Constitutional: As Per HPI, Headache - EENT Eyes: As Per HPI. absent: Blurred Vision, Change in Vision, Other Visual Disturbances, Loss of Vision Ears: As Per HPI Nose/Mouth/Throat: As Per HPI, Nasal Congestion. absent: Nasal Obstruction, Sinus Pain, Sinus Pressure - Cardiovascular Cardiovascular: Dyspnea, Dyspnea on Exertion, Palpitations. absent: Chest Pain , Chest Pain at Rest, Edema, Leg Edema, Lightheadedness, Pedal Edema - Respiratory Respiratory: Cough, Dyspnea, Chest Congestion. absent: Wheezing, Change in Mucous Color - Gastrointestinal Gastrointestinal: absent: Abdominal Pain, Constipation, Diarrhea, Nausea, Vomiting - Genitourinary Genitourinary: absent: Dysuria, Urinary Frequency - Musculoskeletal Musculoskeletal: absent: Back Pain, Muscle Weakness - Integumentary Integumentary: absent: Rash, Wounds - Neurological Neurological: Headaches - Psychiatric Psychiatric: absent: Anxiety, Depression Past Patient History - Infectious Disease Hx of Infectious Diseases: None - Past Social History Smoking Status: Former Smoker - CARDIAC Hx Hypertension: Yes - PULMONARY Hx Respiratory Disorders: No - NEUROLOGICAL Hx Neurological Disorder: No - HEENT Hx HEENT Problems: No - RENAL Hx Chronic Kidney Disease: No - ENDOCRINE/METABOLIC Hx Endocrine Disorders: No - HEMATOLOGICAL/ONCOLOGICAL Hx Blood Disorders: No - INTEGUMENTARY Hx Dermatological Problems: No - MUSCULOSKELETAL/RHEUMATOLOGICAL Hx Musculoskeletal Disorders: No Hx Falls: No - GASTROINTESTINAL Hx Gastrointestinal Disorders: No - GENITOURINARY/GYNECOLOGICAL Hx Genitourinary Disorders: No - PSYCHIATRIC Hx Psychophysiologic Disorder: No Hx Substance Use: No - SURGICAL HISTORY Hx Surgeries: No - ANESTHESIA Hx Anesthesia Reactions: No Meds Allergies/Adverse Reactions: Allergies Allergy/AdvReac Type Severity Reaction Status Date / Time KELIN Inhibitors Allergy ANGIOEDEMA Verified 01/21/17 08:36 hydrochlorothiazide Allergy RASH Verified 01/20/17 18:29 - Medications Medications: Current Medications Acetaminophen (Tylenol 325mg Tab) 650 mg PO Q4 PRN PRN Reason: Pain, moderate (4-7) Last Admin: 01/22/17 23:35 Dose: 650 mg Acetylcysteine (Acetylcysteine 20%) 4 ml IH [id number] [facility] Last Admin: 01/23/17 09:12 Dose: 4 ml Albuterol/Ipratropium (Duoneb 3 Mg/0.5 Mg (3 Ml) Ud) 3 ml IH [id number] PRN PRN Reason: Cough and congestion Alprazolam (Xanax) 0.5 mg PO BID PRN; Protocol PRN Reason: Anxiety Last Admin: 01/22/17 09:51 Dose: 0.5 mg Aspirin (Ecotrin) 81 mg PO DAILY [facility] Last Admin: 01/22/17 09:11 Dose: 81 mg Atorvastatin Calcium (Lipitor) 40 mg PO DIN [facility] Last Admin: 01/22/17 18:17 Dose: 40 mg Benzonatate (Tessalon Perles) 100 mg PO TID PRN PRN Reason: Cough Last Admin: 01/22/17 09:10 Dose: 100 mg Carvedilol (Coreg) 12.5 mg PO BID [facility] Last Admin: 01/22/17 10:05 Dose: 12.5 mg Clopidogrel Bisulfate (Plavix) 75 mg PO DAILY [facility] Last Admin: 01/22/17 10:05 Dose: 75 mg Diltiazem HCl (Cardizem Cd) 180 mg PO DAILY [facility] Last Admin: 01/22/17 14:35 Dose: 180 mg Doxycycline Hyclate (Doryx) 100 mg PO Q12 [place] PRN Reason: Protocol Last Admin: 01/22/17 21:36 Dose: 100 mg Enoxaparin Sodium (Lovenox) 80 mg SC Q12H [facility] PRN Reason: Protocol Stop: 01/23/17 23:00 Last Admin: 01/22/17 23:00 Dose: 80 mg Famotidine (Pepcid) 20 mg PO DAILY [facility] Hydralazine HCl (Apresoline) 25 mg PO Q8H [facility] Last Admin: 01/22/17 18:12 Dose: Not Given Cefepime HCl (Maxipime 2gm) 2 gm in 100 mls @ 100 mls/hr IVPB Q12 [facility] PRN Reason: Protocol Stop: 01/26/17 10:01 Last Admin: 01/22/17 22:06 Dose: 100 mls/hr Nicardipine HCl (Cardene Iv Premix) 20 mg in 200 mls @ 50 mls/hr IV .Q4H PRN; Protocol; 5 MG/HR PRN Reason: TITRATE PER MD ORDER Last Titration: 01/22/17 19:14 Dose: 2 mg/hr, 20 mls/hr Isosorbide Mononitrate (Imdur) 60 mg PO DAILY [facility] Last Admin: 01/22/17 11:07 Dose: 60 mg Levalbuterol HCl (Xopenex) 1.25 mg IH [id number] [facility] Last Admin: 01/23/17 09:13 Dose: 1.25 mg Potassium Chloride (K-Dur 20 Meq Er Tab) 40 meq PO Q2H [facility] Stop: 01/23/17 13:16 Potassium Chloride (K-Dur 20 Meq Er Tab) 40 meq PO ONCE ONE Stop: 01/23/17 15:01 Potassium Phos/Sodium Phos (Neutra-Phos) 1 pkt PO TID [facility] Stop: 01/23/17 23:00 Last Admin: 01/22/17 18:17 Dose: 1 pkt Promethazine HCl/Codeine (Phenergan/Codeine Oral Syrup) 5 ml PO Q4H PRN PRN Reason: Cough and congestion Last Admin: 01/22/17 23:47 Dose: 5 ml Sodium Chloride ([place] Nasal [place]) 0 ml NS Q4H PRN PRN Reason: Nasal congestion Last Admin: 01/21/17 15:55 Dose: 2 sprays Spironolactone (Aldactone) 25 mg PO BID [facility] Last Admin: 01/22/17 10:05 Dose: 25 mg Physical Exam - Constitutional Appears: Non-toxic, No Acute Distress - Head Exam Head Exam: ATRAUMATIC - ENT Exam ENT Exam: Mucous Membranes Moist - Respiratory Exam Respiratory Exam: Rhonchi. absent: Accessory Muscle Use, Respiratory Distress - Cardiovascular Exam Cardiovascular Exam: REGULAR RHYTHM, +S1, +S2. absent: Gallop, Rubs, Systolic Murmur - GI/Abdominal Exam GI & Abdominal Exam: Normal Bowel Sounds, Soft. absent: Distended, Guarding, Rigid, Tenderness - Extremities Exam Extremities exam: Negative for: calf tenderness, pedal edema, tenderness - Neurological Exam Neurological exam: Alert, Oriented x3 - Psychiatric Exam Psychiatric exam: Normal Affect, Normal Mood - Skin Skin Exam: Dry, Intact, Normal Color, Warm Results - Vital Signs Recent Vital Signs: Last Vital Signs Temp 98.3 F 01/23/17 04:00 Pulse 72 01/23/17 06:00 Resp 16 01/23/17 06:00 BP 114/68 01/23/17 06:00 Pulse Ox 98 01/23/17 06:00 - Labs Result Diagrams: 01/23/17 05:15 01/23/17 05:15 Labs: Laboratory Results - last 24 hr 01/21/17 01/22/17 01/23/17 08:00 13:15 05:15 WBC 11.3 H D RBC 4.59 Hgb 12.9 L Hct 37.7 L MCV 82.1 MCH 28.1 MCHC 34.2 RDW 15.3 H Plt Count 125 MPV 12.8 H Gran % 66.0 Lymph % (Auto) 22.6 [place] % (Auto) 10.2 H Eos % (Auto) 0.9 L Baso % (Auto) 0.3 Gran # 7.47 H Lymph # 2.6 [place] # 1.2 H Eos # 0.1 Baso # 0.03 Sodium Potassium Chloride Carbon Dioxide Anion Gap BUN Creatinine Est GFR ( Amer) Est GFR (Non-Af Amer) Random Glucose Calcium Phosphorus Magnesium Total Bilirubin AST ALT Alkaline Phosphatase Total Protein Albumin Globulin Albumin/Globulin Ratio Hepatitis A IgM Ab Negative Hep Bs Antigen Negative Hep B Core IgM Ab Negative Hepatitis C Antibody Negative HIV-1 Antibody TEST NOT PERFORMED HIV-2 Antibody TEST NOT PERFORMED HIV 1&2 Ag/Ab, 4th Gen Nonreactive 01/23/17 05:15 WBC RBC Hgb Hct MCV MCH MCHC RDW Plt Count MPV Gran % Lymph % (Auto) [place] % (Auto) Eos % (Auto) Baso % (Auto) Gran # Lymph # [place] # Eos # Baso # Sodium 140 Potassium 2.7 L* Chloride 104 Carbon Dioxide 28 Anion Gap 11 BUN 20 Creatinine 1.4 Est GFR ( Amer) > 60 Est GFR (Non-Af Amer) 54 Random Glucose 107 Calcium 8.8 Phosphorus 3.7 Magnesium 2.0 Total Bilirubin 1.2 AST 24 ALT 37 Alkaline Phosphatase 80 Total Protein 7.2 Albumin 3.7 Globulin 3.5 Albumin/Globulin Ratio 1.0 L Hepatitis A IgM Ab Hep Bs Antigen Hep B Core IgM Ab Hepatitis C Antibody HIV-1 Antibody HIV-2 Antibody HIV 1&2 Ag/Ab, 4th Gen Assessment & Plan - Assessment and Plan (Free Text) Assessment: 46 year old male with past medical history of HTN and CAD presented to HTN emergency. 1. HTN Emergency - Currently on Cardene drip - Patient is also started on Coreg 12.5 mg PO BID, Cardizem 180 mg po qd, hydralazine 25 mg po q8, Aldactone 25 mg po bid - Renal artery duplex ordered to assess for renal artery stenosis 2. Acute decompensation heart failure - Echo shows EF of 20%, global hypokenesis, Grade I diastolic dysfunction, mod MR and pulmn HTN - CXR done yesterday showed diffuse alveolar infiltrates. Lasixs 40 mg given yesterday. CXR this morning shows improvement of alveolar infiltrates 3. CAD with elevated troponins - Cardiology is consulted. recommend cardiac cath in future - Pt is started on Lovenox therapeutic dose, Plavix 75 mg po qd, Aspirin and Lipitor 4. Sepsis - Negative blood cultures and MRSA culture - Currently on Doxy and meropenem - Seeing as pt is in decompensated CHF, will hold IVF All rec and orders per Dr. Nix - Date & Time Date: 01/23/17 Time: 09:36 <Shubham Nix - Last Filed: 01/24/17 08:41> Meds - Medications Medications: Current Medications Acetaminophen (Tylenol 325mg Tab) 650 mg PO Q4 PRN PRN Reason: Pain, moderate (4-7) Last Admin: 01/23/17 10:22 Dose: 650 mg Acetylcysteine (Acetylcysteine 20%) 6 ml PO Q12H [facility] Last Admin: 01/23/17 19:30 Dose: 6 ml Albuterol/Ipratropium (Duoneb 3 Mg/0.5 Mg (3 Ml) Ud) 3 ml IH [id number] PRN PRN Reason: Cough and congestion Alprazolam (Xanax) 0.5 mg PO BID PRN; Protocol PRN Reason: Anxiety Last Admin: 01/22/17 09:51 Dose: 0.5 mg Aspirin (Ecotrin) 81 mg PO DAILY [facility] Last Admin: 01/23/17 09:59 Dose: 81 mg Atorvastatin Calcium (Lipitor) 40 mg PO DIN [facility] Last Admin: 01/23/17 20:25 Dose: 40 mg Benzonatate (Tessalon Perles) 100 mg PO TID PRN PRN Reason: Cough Last Admin: 01/23/17 10:08 Dose: 100 mg Carvedilol (Coreg) 12.5 mg PO BID [facility] Last Admin: 01/23/17 18:00 Dose: 12.5 mg Clopidogrel Bisulfate (Plavix) 75 mg PO DAILY [facility] Last Admin: 01/23/17 15:09 Dose: 75 mg Diltiazem HCl (Cardizem Cd) 180 mg PO DAILY [facility] Last Admin: 01/23/17 10:06 Dose: 180 mg Doxycycline Hyclate (Doryx) 100 mg PO Q12 [place] PRN Reason: Protocol Last Admin: 01/23/17 22:40 Dose: 100 mg Famotidine (Pepcid) 20 mg PO DAILY [facility] Last Admin: 01/23/17 10:06 Dose: 20 mg Hydralazine HCl (Apresoline) 25 mg PO Q8H [facility] Last Admin: 01/24/17 02:42 Dose: 25 mg Cefepime HCl (Maxipime 2gm) 2 gm in 100 mls @ 100 mls/hr IVPB Q12 [facility] PRN Reason: Protocol Stop: 01/26/17 10:01 Last Admin: 01/23/17 22:37 Dose: 100 mls/hr Isosorbide Mononitrate (Imdur) 60 mg PO DAILY [facility] Last Admin: 01/23/17 10:01 Dose: 60 mg Levalbuterol HCl (Xopenex) 1.25 mg IH [id number] [facility] Last Admin: 01/24/17 01:23 Dose: 1.25 mg Promethazine HCl/Codeine (Phenergan/Codeine Oral Syrup) 5 ml PO Q4H PRN PRN Reason: Cough and congestion Last Admin: 01/22/17 23:47 Dose: 5 ml Sodium Chloride ([place] Nasal [place]) 0 ml NS Q4H PRN PRN Reason: Nasal congestion Last Admin: 01/21/17 15:55 Dose: 2 sprays Spironolactone (Aldactone) 25 mg PO BID [facility] Last Admin: 01/23/17 17:50 Dose: 25 mg Results - Vital Signs Recent Vital Signs: Last Vital Signs Temp 99 F 01/24/17 06:00 Pulse 92 H 01/24/17 06:00 Resp 20 01/24/17 06:00 BP 145/104 H 01/24/17 06:30 Pulse Ox 100 01/24/17 06:00 - Labs Result Diagrams: 01/24/17 06:30 01/24/17 06:30 Labs: Laboratory Results - last 24 hr 01/21/17 01/21/17 01/23/17 01:15 01:15 07:30 WBC RBC Hgb Hct MCV MCH MCHC RDW Plt Count Gran % Lymph % (Auto) [place] % (Auto) Eos % (Auto) Baso % (Auto) Gran # Lymph # [place] # Eos # Baso # Sodium Potassium Chloride Carbon Dioxide Anion Gap BUN Creatinine Est GFR ( Amer) Est GFR (Non-Af Amer) Random Glucose Calcium Total Bilirubin AST ALT Alkaline Phosphatase Total Protein Albumin Globulin Albumin/Globulin Ratio Procalcitonin 0.43 Mycoplasma pneumon IgG 4.65 H Mycoplasma pneumon IgM 87 Pneumocystis Source Serum S. pneumoniae Antigen Not detected 01/23/17 01/24/17 01/24/17 16:45 06:30 06:30 WBC 9.8 RBC 4.41 Hgb 12.2 L Hct 36.0 L MCV 81.6 MCH 27.7 MCHC 33.9 RDW 15.2 H Plt Count 150 Gran % 65.5 Lymph % (Auto) 23.0 [place] % (Auto) 8.9 H Eos % (Auto) 2.2 Baso % (Auto) 0.4 Gran # 6.40 Lymph # 2.2 [place] # 0.9 H Eos # 0.2 Baso # 0.04 Sodium 140 141 Potassium 3.1 L 3.9 Chloride 103 109 H Carbon Dioxide 23 22 Anion Gap 18 15 BUN 20 21 Creatinine 1.4 1.4 Est GFR ( Amer) > 60 > 60 Est GFR (Non-Af Amer) 54 54 Random Glucose 126 H 101 Calcium 9.1 9.2 Total Bilirubin 0.7 AST 31 ALT 34 Alkaline Phosphatase 80 Total Protein 7.0 Albumin 3.7 Globulin 3.3 Albumin/Globulin Ratio 1.1 Procalcitonin Mycoplasma pneumon IgG Mycoplasma pneumon IgM Pneumocystis Source S. pneumoniae Antigen Attending/Attestation - Attestation I have personally seen and examined this patient.: Yes I have fully participated in the care of the patient.: Yes I have reviewed all pertinent clinical information: Yes Notes (Text): Patient seen and examined; I agree with the resident's note as above with the following additions/edits: 46 yo M w/ history of htn since >15 years, presented with cough/shortness of breath, admitted for hypertensive emergency, NSTEMI and CAP; nephrology being consulted for htn management; Patient reports running out of BP med but was only on amlodipine most recently and reports home SBP readings in 140's; doesn't give any suggestive history that is consistent with episodic htn but consistently with hypokalemia and reports having been on K supplementation previously; Exam is pertinent for bilateral femoral artery bruits which is concerning for underlying atherosclerotic disease and may be indicative of underlying renal artery stenosis as well; Found to have severe systolic dysfunction on echo and started on imdur/ hydralazine for afterload reduction; cannot give KELIN inhibitor due to angioedema ; Doesn't give any CKD history but does have mild renal insufficiency consistent with CKD II; 1+ proteinuria seen on UA without blood, but even this was in the setting of severely uncontrolled BP and should be repeated (along with quantified random urine protein and creatinine); -Agree with checking aldosterone/renin level to screen for hyperaldosteronism -Agree with starting aldactone 25 mg bid -Obtaining renal artery duplex -Giving gentle IVF overnight and NAC for contrast nephropathy propylaxis ahead of cardiac cath tomorrow; diuretics currently being held, will restart after cath; -Giving futher K replenishment this evening with 80 meq KCl PO
[2017-01-23] MEDS: Potassium Chloride 20 mEq ER Tab PO SCH ×5 (09:58→20:59)
[2017-01-23] MEDS: Enoxaparin 80 mg Syringe SC SCH ×2 (10:02→22:41)
[2017-01-23] MEDS: Potassium & Sodium Phosphate PO SCH (10:04)
[2017-01-23] MEDS: Cefepime IV 2 gm in NS 2 GM/100 ML BAG IVPB SCH ×2 (10:05→22:37)
[2017-01-23] MEDS: diltiaZEM 180 mg/24 Hours CD Cap PO SCH (10:06)
--- NOTE | 2017-01-23 11:06 | CP.CCUPN ---
<MarcellcarmelinaOnel mcelroy - Last Filed: 01/23/17 11:36> CCU Subjective - Physician Review Subjective (Free Text): Critical Care Progress Note for Dr. Vázquez Patient seen and examined at bedside. No acute events overnight. Patient is feeling better today. NPO today. He states that he woke up with mild headache today. Patient states that dry cough is improving and he no longer has abdominal soreness. Patient denies fever/chills, nausea/vomiting, chest pain, abdominal pain. CCU Objective - Vital Signs / Intake & Output Vital Signs (Last 4 hours): Vital Signs Pulse BP 01/23/17 10:06 94 H 159/76 H Intake and Output (Last 8hrs): Intake & Output 01/22/17 01/23/17 01/23/17 22:59 06:59 14:59 Intake Total 1650 640 Output Total 2600 600 Balance -950 40 Intake: IV 1200 340 Left Forearm 1000 240 Right Hand 100 Oral 450 300 Output: Urine 2600 600 Urine, Voided 2600 600 Other: # Voids Urine, Voided 6 # Bowel Movements 1 - Physical Exam Head: Positive for: Atraumatic, Normocephalic Pupils: Positive for: PERRL Extroacular Muscles: Positive for: EOMI Conjunctiva: Positive for: Normal Ears: Positive for: Normal Mouth: Positive for: Moist Mucous Membranes Pharnyx: Positive for: Normal Nose (External): Positive for: Atraumatic Nose (Internal): Positive for: Normal Inspection, Clear Mucous Neck: Positive for: Normal Range of Motion Respiratory/Chest: Positive for: Good Air Exchange, Respiratory Distress Cardiovascular: Positive for: Regular Rate and Rhythm, Normal S1, S2 Abdomen: Negative for: Tenderness, Distention, Normal Bowel Sounds, Peritoneal Signs, Rebound, Guarding, McBurney's Point Tender, Rovsing's Sign Present, Hernias, Feeding Tubes, Ostomy Tubes, Mass/Organomegaly, Scars, Other Back: Positive for: Normal Inspection Upper Extremity: Positive for: Normal Inspection. Negative for: Cyanosis Lower Extremity: Positive for: Normal Inspection. Negative for: Edema, CALF TENDERNESS Neurological: Positive for: GCS=15, CN II-XII Intact, Speech Normal, Motor Func Grossly Intact Skin: Positive for: Warm, Normal Color Psychiatric: Positive for: Alert, Oriented x 3, Normal Insight, Normal Concentration - Medications Active Medications: Active Medications Generic Name Dose Route Start Last Admin Trade Name Freq PRN Reason Stop Dose Admin Acetaminophen 650 mg 01/20/17 23:22 01/23/17 10:22 Tylenol 325mg Tab PO 650 mg Q4 PRN Administration Pain, moderate (4-7) Acetylcysteine 4 ml 01/22/17 08:00 01/23/17 09:12 Acetylcysteine 20% IH 4 ml [id number] MADELEINE Administration Albuterol/Ipratropium 3 ml 01/21/17 14:40 Duoneb 3 Mg/0.5 Mg (3 Ml) Ud IH [id number] PRN Cough and congestion Alprazolam 0.5 mg 01/22/17 09:30 01/22/17 09:51 Xanax PO 0.5 mg BID PRN Administration Anxiety Protocol Aspirin 81 mg 01/21/17 10:00 01/23/17 09:59 Ecotrin PO 81 mg DAILY MADELEINE Administration Atorvastatin Calcium 40 mg 01/21/17 17:00 01/22/17 18:17 Lipitor PO 40 mg DIN MADELEINE Administration Benzonatate 100 mg 01/21/17 14:03 01/23/17 10:08 Tessalon Perles PO 100 mg TID PRN Administration Cough Carvedilol 12.5 mg 01/22/17 10:00 01/22/17 10:05 Coreg PO 12.5 mg BID MADELEINE Administration Clopidogrel Bisulfate 75 mg 01/21/17 10:00 01/22/17 10:05 Plavix PO 75 mg DAILY MADELEINE Administration Diltiazem HCl 180 mg 01/22/17 10:15 01/23/17 10:06 Cardizem Cd PO 180 mg DAILY MADELEINE Administration Doxycycline Hyclate 100 mg 01/21/17 10:00 01/23/17 09:59 Doryx PO 100 mg Q12 MADELEINE Administration Protocol Enoxaparin Sodium 80 mg 01/21/17 11:00 01/23/17 10:02 Lovenox SC 01/23/17 23:00 80 mg Q12H MADELEINE Administration Protocol Famotidine 20 mg 01/23/17 10:00 01/23/17 10:06 Pepcid PO 20 mg DAILY MADELEINE Administration Hydralazine HCl 25 mg 01/22/17 09:15 01/22/17 18:12 Apresoline PO Not Given Q8H MADELEINE Cefepime HCl 2 gm in 100 mls @ 100 mls/hr 01/21/17 10:00 01/23/17 10:05 Maxipime 2gm IVPB 01/26/17 10:01 100 mls/hr Q12 MADELEINE Administration Protocol Nicardipine HCl 20 mg in 200 mls @ 50 mls/hr 01/22/17 14:50 01/22/17 19:14 Cardene Iv Premix IV 2 mg/hr .Q4H PRN 20 mls/hr TITRATE PER MD ORDER Titration Protocol 5 MG/HR Potassium Chloride 20 meq in 100 mls @ 50 mls/hr 01/23/17 10:30 Potassium Chloride 20 Meq/100 Ml IVPB 01/23/17 14:29 Q2H MADELEINE Isosorbide Mononitrate 60 mg 01/22/17 10:00 01/23/17 10:01 Imdur PO 60 mg DAILY MADELEINE Administration Levalbuterol HCl 1.25 mg 01/21/17 14:00 01/23/17 09:13 Xopenex IH 1.25 mg [id number] MADELENIE Administration Potassium Chloride 40 meq 01/23/17 09:15 01/23/17 09:58 K-Dur 20 Meq Er Tab PO 01/23/17 13:16 40 meq Q2H MADELEINE Administration Potassium Chloride 40 meq 01/23/17 15:00 K-Dur 20 Meq Er Tab PO 01/23/17 15:01 ONCE ONE Potassium Phos/Sodium Phos 1 pkt 01/22/17 14:00 01/23/17 10:04 Neutra-Phos PO 01/23/17 23:00 1 pkt TID MADELEINE Administration Promethazine HCl/Codeine 5 ml 01/22/17 07:40 01/22/17 23:47 Phenergan/Codeine Oral Syrup PO 5 ml Q4H PRN Administration Cough and congestion Sodium Chloride 0 ml 01/21/17 14:41 01/21/17 15:55 Lofall Nasal [place] NS 2 sprays Q4H PRN Administration Nasal congestion Spironolactone 25 mg 01/22/17 10:00 01/22/17 10:05 Aldactone PO 25 mg BID MADELEINE Administration - Patient Studies Lab Studies: Microbiology Studies 01/21/17 00:45 MRSA Culture (Admit) - Final Nose MRSA NOT DETECTED Lab Studies 01/23/17 01/23/17 01/22/17 Range/Units 05:15 05:15 13:15 WBC 11.3 H D (4.5-11.0) 10^3/ul RBC 4.59 (3.5-6.1) 10^6/uL Hgb 12.9 L (14.0-18.0) g/dL Hct 37.7 L (42.0-52.0) % MCV 82.1 (80.0-105.0) fl MCH 28.1 (25.0-35.0) pg MCHC 34.2 (31.0-37.0) g/dl RDW 15.3 H (11.5-14.5) % Plt Count 125 (120.0-450.0) 10^3/uL MPV 12.8 H (7.0-11.0) fl Gran % 66.0 (50.0-68.0) % Lymph % (Auto) 22.6 (22.0-35.0) % [place] % (Auto) 10.2 H (1.0-6.0) % Eos % (Auto) 0.9 L (1.5-5.0) % Baso % (Auto) 0.3 (0.0-3.0) % Gran # 7.47 H (1.4-6.5) Lymph # 2.6 (1.2-3.4) [place] # 1.2 H (0.1-0.6) Eos # 0.1 (0.0-0.7) Baso # 0.03 (0.0-2.0) K/mm3 Sodium 140 (132-148) mmol/L Potassium 2.7 L* (3.6-5.0) mmol/L Chloride 104 (98-107) mmol/L Carbon Dioxide 28 (21-33) mmol/L Anion Gap 11 (10-20) BUN 20 (7-21) mg/dL Creatinine 1.4 (0.8-1.5) mg/dl Est GFR ( Amer) > 60 Est GFR (Non-Af Amer) 54 Random Glucose 107 (70-110) mg/dL Calcium 8.8 (8.4-10.5) mg/dL Phosphorus 3.7 (2.5-4.5) mg/dL Magnesium 2.0 (1.7-2.2) mg/dL Total Bilirubin 1.2 (0.2-1.3) mg/dL AST 24 (17-59) U/L ALT 37 (7-56) U/L Alkaline Phosphatase 80 (38-126) U/L Total Protein 7.2 (5.8-8.3) g/dL Albumin 3.7 (3.0-4.8) g/dL Globulin 3.5 gm/dL Albumin/Globulin Ratio 1.0 L (1.1-1.8) Hepatitis A IgM Ab Negative (NEGATIVE) Hep Bs Antigen Negative (NEGATIVE) Hep B Core IgM Ab Negative (NEGATIVE) Hepatitis C Antibody Negative (NEGATIVE) HIV-1 Antibody HIV-2 Antibody HIV 1&2 Ag/Ab, 4th Gen (Nonreactive) 01/21/17 Range/Units 08:00 WBC (4.5-11.0) 10^3/ul RBC (3.5-6.1) 10^6/uL Hgb (14.0-18.0) g/dL Hct (42.0-52.0) % MCV (80.0-105.0) fl MCH (25.0-35.0) pg MCHC (31.0-37.0) g/dl RDW (11.5-14.5) % Plt Count (120.0-450.0) 10^3/uL MPV (7.0-11.0) fl Gran % (50.0-68.0) % Lymph % (Auto) (22.0-35.0) % [place] % (Auto) (1.0-6.0) % Eos % (Auto) (1.5-5.0) % Baso % (Auto) (0.0-3.0) % Gran # (1.4-6.5) Lymph # (1.2-3.4) [place] # (0.1-0.6) Eos # (0.0-0.7) Baso # (0.0-2.0) K/mm3 Sodium (132-148) mmol/L Potassium (3.6-5.0) mmol/L Chloride (98-107) mmol/L Carbon Dioxide (21-33) mmol/L Anion Gap (10-20) BUN (7-21) mg/dL Creatinine (0.8-1.5) mg/dl Est GFR ( Amer) Est GFR (Non-Af Amer) Random Glucose (70-110) mg/dL Calcium (8.4-10.5) mg/dL Phosphorus (2.5-4.5) mg/dL Magnesium (1.7-2.2) mg/dL Total Bilirubin (0.2-1.3) mg/dL AST (17-59) U/L ALT (7-56) U/L Alkaline Phosphatase (38-126) U/L Total Protein (5.8-8.3) g/dL Albumin (3.0-4.8) g/dL Globulin gm/dL Albumin/Globulin Ratio (1.1-1.8) Hepatitis A IgM Ab (NEGATIVE) Hep Bs Antigen (NEGATIVE) Hep B Core IgM Ab (NEGATIVE) Hepatitis C Antibody (NEGATIVE) HIV-1 Antibody TEST NOT PERFORMED HIV-2 Antibody TEST NOT PERFORMED HIV 1&2 Ag/Ab, 4th Gen Nonreactive (Nonreactive) Laboratory Results - last 24 hr 01/21/17 01/22/17 01/23/17 08:00 13:15 05:15 WBC 11.3 H D RBC 4.59 Hgb 12.9 L Hct 37.7 L MCV 82.1 MCH 28.1 MCHC 34.2 RDW 15.3 H Plt Count 125 MPV 12.8 H Gran % 66.0 Lymph % (Auto) 22.6 [place] % (Auto) 10.2 H Eos % (Auto) 0.9 L Baso % (Auto) 0.3 Gran # 7.47 H Lymph # 2.6 [place] # 1.2 H Eos # 0.1 Baso # 0.03 Sodium Potassium Chloride Carbon Dioxide Anion Gap BUN Creatinine Est GFR ( Amer) Est GFR (Non-Af Amer) Random Glucose Calcium Phosphorus Magnesium Total Bilirubin AST ALT Alkaline Phosphatase Total Protein Albumin Globulin Albumin/Globulin Ratio Hepatitis A IgM Ab Negative Hep Bs Antigen Negative Hep B Core IgM Ab Negative Hepatitis C Antibody Negative HIV-1 Antibody TEST NOT PERFORMED HIV-2 Antibody TEST NOT PERFORMED HIV 1&2 Ag/Ab, 4th Gen Nonreactive 01/23/17 05:15 WBC RBC Hgb Hct MCV MCH MCHC RDW Plt Count MPV Gran % Lymph % (Auto) [place] % (Auto) Eos % (Auto) Baso % (Auto) Gran # Lymph # [place] # Eos # Baso # Sodium 140 Potassium 2.7 L* Chloride 104 Carbon Dioxide 28 Anion Gap 11 BUN 20 Creatinine 1.4 Est GFR ( Amer) > 60 Est GFR (Non-Af Amer) 54 Random Glucose 107 Calcium 8.8 Phosphorus 3.7 Magnesium 2.0 Total Bilirubin 1.2 AST 24 ALT 37 Alkaline Phosphatase 80 Total Protein 7.2 Albumin 3.7 Globulin 3.5 Albumin/Globulin Ratio 1.0 L Hepatitis A IgM Ab Hep Bs Antigen Hep B Core IgM Ab Hepatitis C Antibody HIV-1 Antibody HIV-2 Antibody HIV 1&2 Ag/Ab, 4th Gen Review of Systems - Constitutional Constitutional: absent: Fever, Chills - EENT Nose/Mouth/Throat: absent: Nasal Discharge, Nasal Trauma - Cardiovascular Cardiovascular: Rapid Heart Rate. absent: Chest Pain, Edema - Respiratory Respiratory: Cough Additional comments: Cough on inspiration - Gastrointestinal Gastrointestinal: Diarrhea. absent: Abdominal Pain - Genitourinary Genitourinary: absent: Change in Urinary Stream - Neurological Neurological: Headaches Critical Care Progress Note - Nutrition Nutrition: Nutrition Category Date Time Status Heart Healthy Diet [DIET] Diets 01/20/17 Breakfast Ordered Assessment/Plan - Assessment and Plan (Free Text) Assessment: 46 M with PMH significant for hypertension presenting with hypertensive emergency, elevated troponins and suspected CAP Neuro: AAOx3, maintain normothermia, answering questions appropriately Pulm: CXR showing improved bilateral infiltrates, Maintain SaO2 >90%, supportive O2 as needed, keep head of bed elevated 30 degrees, Duonebs PRN, Mucomyst, Tessalon Pearles, Phenergan PRN Cardio: Continue to monitor blood pressure and heart rate, Coreg, Hydralazine, aldactone, Imdur and cardizem restarted, wean off nicardipine drip GI: Pepcid for ppx, NPO for Renal artery duplex Renal: Potassium Chloride 40 mg PO x 3 and 20mg IV x 2 for hypokalemia, Monitor electrolytes and replete as necessary, aldosterone/RA ratio, renal artery duplex today, f/u Nephro recommendations Endo: Maintain euglycemia 140-180 Heme: Continue Lovenox, ASA, Plavix, Statin ID: Continue IV antibiotics per ID, MRSA screen negative, Blood culture negative 48hrs, HIV negative, Hepatitis negative, Negative for flu a/b and legionella Ag <Jason Mills B - Last Filed: 01/23/17 14:51> CCU Objective - Vital Signs / Intake & Output Vital Signs (Last 4 hours): Vital Signs Pulse BP 01/23/17 12:05 100 H 178/84 H Intake and Output (Last 8hrs): Intake & Output 01/22/17 01/23/17 01/23/17 22:59 06:59 14:59 Intake Total 1650 640 Output Total 2600 600 Balance -950 40 Intake: IV 1200 340 Left Forearm 1000 240 Right Hand 100 Oral 450 300 Output: Urine 2600 600 Urine, Voided 2600 600 Other: # Voids Urine, Voided 6 # Bowel Movements 1 - Medications Active Medications: Active Medications Generic Name Dose Route Start Last Admin Trade Name Freq PRN Reason Stop Dose Admin Acetaminophen 650 mg 01/20/17 23:22 01/23/17 10:22 Tylenol 325mg Tab PO 650 mg Q4 PRN Administration Pain, moderate (4-7) Acetylcysteine 4 ml 01/22/17 08:00 01/23/17 13:14 Acetylcysteine 20% IH 4 ml [id number] MADELEINE Administration Albuterol/Ipratropium 3 ml 01/21/17 14:40 Duoneb 3 Mg/0.5 Mg (3 Ml) Ud IH [id number] PRN Cough and congestion Alprazolam 0.5 mg 01/22/17 09:30 01/22/17 09:51 Xanax PO 0.5 mg BID PRN Administration Anxiety Protocol Aspirin 81 mg 01/21/17 10:00 01/23/17 09:59 Ecotrin PO 81 mg DAILY MADELEINE Administration Atorvastatin Calcium 40 mg 01/21/17 17:00 01/22/17 18:17 Lipitor PO 40 mg DIN MADELEINE Administration Benzonatate 100 mg 01/21/17 14:03 01/23/17 10:08 Tessalon Perles PO 100 mg TID PRN Administration Cough Carvedilol 12.5 mg 01/22/17 10:00 01/22/17 10:05 Coreg PO 12.5 mg BID MADELEINE Administration Clopidogrel Bisulfate 75 mg 01/21/17 10:00 01/22/17 10:05 Plavix PO 75 mg DAILY MADELEINE Administration Diltiazem HCl 180 mg 12/12/17 10:15 01/23/17 10:06 Cardizem Cd PO 180 mg DAILY MADELEINE Administration Doxycycline Hyclate 100 mg 01/21/17 10:00 01/23/17 09:59 Doryx PO 100 mg Q12 MADELEINE Administration Protocol Enoxaparin Sodium 80 mg 01/21/17 11:00 01/23/17 10:02 Lovenox SC 01/23/17 23:00 80 mg Q12H MADELEINE Administration Protocol Famotidine 20 mg 01/23/17 10:00 01/23/17 10:06 Pepcid PO 20 mg DAILY MADELEINE Administration Hydralazine HCl 25 mg 01/22/17 09:15 01/22/17 18:12 Apresoline PO Not Given Q8H MADELEINE Cefepime HCl 2 gm in 100 mls @ 100 mls/hr 01/21/17 10:00 01/23/17 10:05 Maxipime 2gm IVPB 01/26/17 10:01 100 mls/hr Q12 MADELEINE Administration Protocol Nicardipine HCl 20 mg in 200 mls @ 50 mls/hr 01/22/17 14:50 01/22/17 19:14 Cardene Iv Premix IV 2 mg/hr .Q4H PRN 20 mls/hr TITRATE PER MD ORDER Titration Protocol 5 MG/HR Isosorbide Mononitrate 60 mg 01/22/17 10:00 01/23/17 10:01 Imdur PO 60 mg DAILY MADELEINE Administration Levalbuterol HCl 1.25 mg 01/21/17 14:00 01/23/17 13:14 Xopenex IH 1.25 mg [id number] MADELEINE Administration Potassium Chloride 40 meq 01/23/17 15:00 K-Dur 20 Meq Er Tab PO 01/23/17 15:01 ONCE ONE Promethazine HCl/Codeine 5 ml 01/22/17 07:40 01/22/17 23:47 Phenergan/Codeine Oral Syrup PO 5 ml Q4H PRN Administration Cough and congestion Sodium Chloride 0 ml 01/21/17 14:41 01/21/17 15:55 Lofall Nasal [place] NS 2 sprays Q4H PRN Administration Nasal congestion Spironolactone 25 mg 01/22/17 10:00 01/22/17 10:05 Aldactone PO 25 mg BID MADELEINE Administration - Patient Studies Lab Studies: Microbiology Studies 01/21/17 00:45 MRSA Culture (Admit) - Final Nose MRSA NOT DETECTED Lab Studies 01/23/17 01/23/17 01/23/17 Range/Units 07:30 05:15 05:15 WBC 11.3 H D (4.5-11.0) 10^3/ul RBC 4.59 (3.5-6.1) 10^6/uL Hgb 12.9 L (14.0-18.0) g/dL Hct 37.7 L (42.0-52.0) % MCV 82.1 (80.0-105.0) fl MCH 28.1 (25.0-35.0) pg MCHC 34.2 (31.0-37.0) g/dl RDW 15.3 H (11.5-14.5) % Plt Count 125 (120.0-450.0) 10^3/uL MPV 12.8 H (7.0-11.0) fl Gran % 66.0 (50.0-68.0) % Lymph % (Auto) 22.6 (22.0-35.0) % [place] % (Auto) 10.2 H (1.0-6.0) % Eos % (Auto) 0.9 L (1.5-5.0) % Baso % (Auto) 0.3 (0.0-3.0) % Gran # 7.47 H (1.4-6.5) Lymph # 2.6 (1.2-3.4) [place] # 1.2 H (0.1-0.6) Eos # 0.1 (0.0-0.7) Baso # 0.03 (0.0-2.0) K/mm3 Sodium 140 (132-148) mmol/L Potassium 2.7 L* (3.6-5.0) mmol/L Chloride 104 (98-107) mmol/L Carbon Dioxide 28 (21-33) mmol/L Anion Gap 11 (10-20) BUN 20 (7-21) mg/dL Creatinine 1.4 (0.8-1.5) mg/dl Est GFR ( Amer) > 60 Est GFR (Non-Af Amer) 54 Random Glucose 107 (70-110) mg/dL Calcium 8.8 (8.4-10.5) mg/dL Phosphorus 3.7 (2.5-4.5) mg/dL Magnesium 2.0 (1.7-2.2) mg/dL Total Bilirubin 1.2 (0.2-1.3) mg/dL AST 24 (17-59) U/L ALT 37 (7-56) U/L Alkaline Phosphatase 80 (38-126) U/L Total Protein 7.2 (5.8-8.3) g/dL Albumin 3.7 (3.0-4.8) g/dL Globulin 3.5 gm/dL Albumin/Globulin Ratio 1.0 L (1.1-1.8) Procalcitonin 0.43 (0.19-0.49) NG/ML Hepatitis A IgM Ab (NEGATIVE) Hep Bs Antigen (NEGATIVE) Hep B Core IgM Ab (NEGATIVE) Hepatitis C Antibody (NEGATIVE) HIV-1 Antibody HIV-2 Antibody HIV 1&2 Ag/Ab, 4th Gen (Nonreactive) 01/22/17 01/21/17 Range/Units 13:15 08:00 WBC (4.5-11.0) 10^3/ul RBC (3.5-6.1) 10^6/uL Hgb (14.0-18.0) g/dL Hct (42.0-52.0) % MCV (80.0-105.0) fl MCH (25.0-35.0) pg MCHC (31.0-37.0) g/dl RDW (11.5-14.5) % Plt Count (120.0-450.0) 10^3/uL MPV (7.0-11.0) fl Gran % (50.0-68.0) % Lymph % (Auto) (22.0-35.0) % [place] % (Auto) (1.0-6.0) % Eos % (Auto) (1.5-5.0) % Baso % (Auto) (0.0-3.0) % Gran # (1.4-6.5) Lymph # (1.2-3.4) [place] # (0.1-0.6) Eos # (0.0-0.7) Baso # (0.0-2.0) K/mm3 Sodium (132-148) mmol/L Potassium (3.6-5.0) mmol/L Chloride (98-107) mmol/L Carbon Dioxide (21-33) mmol/L Anion Gap (10-20) BUN (7-21) mg/dL Creatinine (0.8-1.5) mg/dl Est GFR ( Amer) Est GFR (Non-Af Amer) Random Glucose (70-110) mg/dL Calcium (8.4-10.5) mg/dL Phosphorus (2.5-4.5) mg/dL Magnesium (1.7-2.2) mg/dL Total Bilirubin (0.2-1.3) mg/dL AST (17-59) U/L ALT (7-56) U/L Alkaline Phosphatase (38-126) U/L Total Protein (5.8-8.3) g/dL Albumin (3.0-4.8) g/dL Globulin gm/dL Albumin/Globulin Ratio (1.1-1.8) Procalcitonin (0.19-0.49) NG/ML Hepatitis A IgM Ab Negative (NEGATIVE) Hep Bs Antigen Negative (NEGATIVE) Hep B Core IgM Ab Negative (NEGATIVE) Hepatitis C Antibody Negative (NEGATIVE) HIV-1 Antibody TEST NOT PERFORMED HIV-2 Antibody TEST NOT PERFORMED HIV 1&2 Ag/Ab, 4th Gen Nonreactive (Nonreactive) Laboratory Results - last 24 hr 01/21/17 01/22/17 01/23/17 08:00 13:15 05:15 WBC 11.3 H D RBC 4.59 Hgb 12.9 L Hct 37.7 L MCV 82.1 MCH 28.1 MCHC 34.2 RDW 15.3 H Plt Count 125 MPV 12.8 H Gran % 66.0 Lymph % (Auto) 22.6 [place] % (Auto) 10.2 H Eos % (Auto) 0.9 L Baso % (Auto) 0.3 Gran # 7.47 H Lymph # 2.6 [place] # 1.2 H Eos # 0.1 Baso # 0.03 Sodium Potassium Chloride Carbon Dioxide Anion Gap BUN Creatinine Est GFR ( Amer) Est GFR (Non-Af Amer) Random Glucose Calcium Phosphorus Magnesium Total Bilirubin AST ALT Alkaline Phosphatase Total Protein Albumin Globulin Albumin/Globulin Ratio Procalcitonin Hepatitis A IgM Ab Negative Hep Bs Antigen Negative Hep B Core IgM Ab Negative Hepatitis C Antibody Negative HIV-1 Antibody TEST NOT PERFORMED HIV-2 Antibody TEST NOT PERFORMED HIV 1&2 Ag/Ab, 4th Gen Nonreactive 01/23/17 01/23/17 05:15 07:30 WBC RBC Hgb Hct MCV MCH MCHC RDW Plt Count MPV Gran % Lymph % (Auto) [place] % (Auto) Eos % (Auto) Baso % (Auto) Gran # Lymph # [place] # Eos # Baso # Sodium 140 Potassium 2.7 L* Chloride 104 Carbon Dioxide 28 Anion Gap 11 BUN 20 Creatinine 1.4 Est GFR ( Amer) > 60 Est GFR (Non-Af Amer) 54 Random Glucose 107 Calcium 8.8 Phosphorus 3.7 Magnesium 2.0 Total Bilirubin 1.2 AST 24 ALT 37 Alkaline Phosphatase 80 Total Protein 7.2 Albumin 3.7 Globulin 3.5 Albumin/Globulin Ratio 1.0 L Procalcitonin 0.43 Hepatitis A IgM Ab Hep Bs Antigen Hep B Core IgM Ab Hepatitis C Antibody HIV-1 Antibody HIV-2 Antibody HIV 1&2 Ag/Ab, 4th Gen Critical Care Progress Note - Nutrition Nutrition: Nutrition Category Date Time Status Heart Healthy Diet [DIET] Diets 01/20/17 Breakfast Ordered Attending/Attestation - Attestation I have personally seen and examined this patient.: Yes I have fully participated in the care of the patient.: Yes I have reviewed all pertinent clinical information: Yes Notes (Text): 01/23/17 14:48 46 yo male with hypertensive emergency complicated by ACS, MARY, CPE, CHF now off cardene drip, asymptomatic. on diuretics for preload reduction, hydralazine/ isosorbide for afterload reduction, coreg. On lovenox, aspirin. Will likely go for coronary angio to rule out ischemic cardiomyopathy ccm time 40 min
--- NOTE | 2017-01-23 12:41 | PN ---
DATE: REASON FOR CONSULTATION AND FOLLOWUP: Cardiac evaluation, rule out non-STEMI. SUBJECTIVE: The patient denies any chest pain, but complained of cough, when coughing his chest hurts, not at rest. OBJECTIVE: GENERAL: Not in apparent distress, sitting in the ICU. VITAL SIGNS: Temperature afebrile, heart rate 91, and blood pressure 155/98. HEENT: PERRLA. Extraocular muscles intact. NECK: Supple. No carotid bruits or thyromegaly. CHEST: Clear to auscultation. HEART: S1 and S2 regular. ABDOMEN: Soft. EXTREMITIES: Clubbing and cyanosis negative. LABORATORY DATA: Blood workup as follows: WBC 11 , hemoglobin 12.9, hematocrit 37.7, and platelet count 125. Chemistry shows sodium 140, potassium 2.7, chloride 104, carbon dioxide 27, anion gap of 11, BUN 20, and creatinine 1.4. ASSESSMENT AND PLAN: Severe hypokalemia, pneumonia, borderline troponin positive, rule out [id number] myocardial infarction, rule out underlying coronary artery disease, community-acquired pneumonia, and sepsis, improving slowly. The patent had echocardiography done yesterday that shows mildly dilated left ventricle, concentric left ventricular hypertrophy, systolic function severely impaired, global hypokinesis of the left ventricle, apical thrombus is small, moderate regurgitation, and mild pulmonary hypertension. RECOMMENDATIONS: 1. We will review the echo. 2. We will hold Lovenox tonight. We will do the coronary angiogram and if echo is suspicious of thrombus after reviewing they we will just do no LV gram, just a coronary. Also, we will look into the renal artery because the patient is having persistently elevated blood pressure, rule out renal artery stenosis. In the interim, continue broad-spectrum antibiotics as per ID, and the patient is ALLERGIC TO KELIN, we cannot give KELIN because the patient has got angioedema. Coreg started yesterday. Continue spironolactone. Continue Lasix. Continue Cardizem CD 180 mg and if needed, we can go up with Coreg to 25 b.i.d. and cut down the hydralazine to p.r.n. We will hold Lovenox after two days dose. Continue aspirin. Continue Plavix for now and discontinue Lovenox after two days dose. We will supplement aggressively potassium. We will give another 40 mEq at 3:00 p.m. in addition to is given. N.p.o. after midnight for cardiac catheterization in the morning and we will hold the Lovenox after two night doses. We will follow with you. Thank you, Dr. Jaquez, for providing us the opportunity in taking care of the patient, Jd Luis. Rhea Velez MD
[2017-01-23] MEDS ORDERED: Potassium Chloride 20 mEq ER Tab PO ONE (15:00)
--- NOTE | 2017-01-23 15:57 | CP.PCM.PN ---
<JadenEscondido - Last Filed: 01/23/17 15:58> Subjective - Date & Time of Evaluation Date of Evaluation: 01/23/17 Time of Evaluation: 08:54 - Subjective Subjective: Patient seen and examined at bedside. Per nursing no acute events occurred overnight . The patient reports a headache at the crown of his head with no radiation. The patient denies any chest pain, lightheadedness, dizziness, chills, abdominal pain, nausea, vomiting, changes in vision, or any other complaints. Objective - Vital Signs/Intake and Output Vital Signs (last 24 hours): Temp Pulse Resp BP Pulse Ox 98.3 F 100 H 16 133/64 98 01/23/17 04:00 01/23/17 12:05 01/23/17 06:00 01/23/17 15:15 01/23/17 06:00 Intake and Output: 01/23/17 01/23/17 06:59 18:59 Intake Total 673 Output Total 600 Balance 73 - Medications Medications: Current Medications Acetaminophen (Tylenol 325mg Tab) 650 mg PO Q4 PRN PRN Reason: Pain, moderate (4-7) Last Admin: 01/23/17 10:22 Dose: 650 mg Acetylcysteine (Acetylcysteine 20%) 4 ml IH [id number] REPLACED BY [facility] Last Admin: 01/23/17 13:14 Dose: 4 ml Albuterol/Ipratropium (Duoneb 3 Mg/0.5 Mg (3 Ml) Ud) 3 ml IH [id number] PRN PRN Reason: Cough and congestion Alprazolam (Xanax) 0.5 mg PO BID PRN; Protocol PRN Reason: Anxiety Last Admin: 01/22/17 09:51 Dose: 0.5 mg Aspirin (Ecotrin) 81 mg PO DAILY REPLACED BY [facility] Last Admin: 01/23/17 09:59 Dose: 81 mg Atorvastatin Calcium (Lipitor) 40 mg PO DIN REPLACED BY [facility] Last Admin: 01/22/17 18:17 Dose: 40 mg Benzonatate (Tessalon Perles) 100 mg PO TID PRN PRN Reason: Cough Last Admin: 01/23/17 10:08 Dose: 100 mg Carvedilol (Coreg) 12.5 mg PO BID REPLACED BY [facility] Last Admin: 01/22/17 10:05 Dose: 12.5 mg Clopidogrel Bisulfate (Plavix) 75 mg PO DAILY REPLACED BY [facility] Last Admin: 01/23/17 15:09 Dose: 75 mg Diltiazem HCl (Cardizem Cd) 180 mg PO DAILY REPLACED BY [facility] Last Admin: 01/23/17 10:06 Dose: 180 mg Doxycycline Hyclate (Doryx) 100 mg PO Q12 REPLACED BY [facility] PRN Reason: Protocol Last Admin: 01/23/17 09:59 Dose: 100 mg Enoxaparin Sodium (Lovenox) 80 mg SC Q12H REPLACED BY [facility] PRN Reason: Protocol Stop: 01/23/17 23:00 Last Admin: 01/23/17 10:02 Dose: 80 mg Famotidine (Pepcid) 20 mg PO DAILY REPLACED BY [facility] Last Admin: 01/23/17 10:06 Dose: 20 mg Hydralazine HCl (Apresoline) 25 mg PO Q8H REPLACED BY [facility] Last Admin: 01/22/17 18:12 Dose: Not Given Cefepime HCl (Maxipime 2gm) 2 gm in 100 mls @ 100 mls/hr IVPB Q12 REPLACED BY [facility] PRN Reason: Protocol Stop: 01/26/17 10:01 Last Admin: 01/23/17 10:05 Dose: 100 mls/hr Nicardipine HCl (Cardene Iv Premix) 20 mg in 200 mls @ 50 mls/hr IV .Q4H PRN; Protocol; 5 MG/HR PRN Reason: TITRATE PER MD ORDER Last Titration: 01/22/17 19:14 Dose: 2 mg/hr, 20 mls/hr Isosorbide Mononitrate (Imdur) 60 mg PO DAILY REPLACED BY [facility] Last Admin: 01/23/17 10:01 Dose: 60 mg Levalbuterol HCl (Xopenex) 1.25 mg IH [id number] REPLACED BY [facility] Last Admin: 01/23/17 13:14 Dose: 1.25 mg Promethazine HCl/Codeine (Phenergan/Codeine Oral Syrup) 5 ml PO Q4H PRN PRN Reason: Cough and congestion Last Admin: 01/22/17 23:47 Dose: 5 ml Sodium Chloride ([place] Nasal [place]) 0 ml NS Q4H PRN PRN Reason: Nasal congestion Last Admin: 01/21/17 15:55 Dose: 2 sprays Spironolactone (Aldactone) 25 mg PO BID REPLACED BY [facility] Last Admin: 01/22/17 10:05 Dose: 25 mg - Labs Labs: 01/23/17 05:15 01/23/17 05:15 PT 12.1 SECONDS (9.4-12.5) 01/20/17 19:00 INR 1.11 (0.93-1.08) H 01/20/17 19:00 APTT 28.5 Seconds (25.1-36.5) 01/20/17 19:00 - Head Exam Head Exam: ATRAUMATIC, NORMAL INSPECTION, NORMOCEPHALIC - Eye Exam Eye Exam: EOMI, Normal appearance, PERRL. absent: Periorbital tenderness Pupil Exam: NORMAL ACCOMODATION, PERRL. absent: Irregular, Unequal - ENT Exam ENT Exam: Mucous Membranes Moist, Normal Exam, Normal Oropharynx - Neck Exam Neck Exam: Full ROM, Normal Inspection. absent: Lymphadenopathy, Thyromegaly - Respiratory Exam Respiratory Exam: Decreased Breath Sounds. absent: Prolonged Expiratory Phase, Respiratory Distress - Cardiovascular Exam Cardiovascular Exam: REGULAR RHYTHM, +S1, +S2. absent: Gallop, Rubs - GI/Abdominal Exam GI & Abdominal Exam: Soft, Normal Bowel Sounds. absent: Hyperactive Bowel Sounds - Extremities Exam Extremities Exam: Full ROM, Normal Inspection. absent: Joint Swelling, Pedal Edema, Tenderness - Back Exam Back Exam: NORMAL INSPECTION. absent: CVA tenderness (L), CVA tenderness (R), paraspinal tenderness - Neurological Exam Neurological Exam: Alert - Psychiatric Exam Psychiatric exam: Normal Affect, Normal Mood. absent: Flat Affect, Suicidal Ideation - Skin Skin Exam: Dry, Intact, Normal Color, Warm. absent: Rash Assessment and Plan - Assessment and Plan (Free Text) Assessment: Patient is a 46yo male who presents to the emergency department via EMS for evaluation and treatment of nasal congestion, production cough with pleghm which began 2 days ago without any provoking event. Plan: Neurological Headache -AOX3. No cognitive deficits appreciated. - 2/2 elevated BP - Continue prn tylenol ordered - head CT- no acute intracranial abnormalities Cardiology Hypertensive Emergency -BP elevated at 187/96 upon examination today. Will continue to monitor. -Patient states he was only on Norvasc in [place] per the . -Serum aldosterone ordered. Will f/u with results. -Nicardipine drip. Chest Pain - rule out ACS - EKG reviewed and appreciated - t wave inversions in the lateral leads - cardiac enzymes q8h x 3, Troponins: .14, .17, .13- as per ED physician Dr. Velez was contacted to review patient EKG- the abnormality in the precordial leads is secondary to ventricular strain in the setting of sepsis. Will continue to monitor closely. - lipid profile: Triglycerides: 154, Cholesterol: 156, LDL: 117, and HDL :34 -Patient states he had an ECHO done in the past that was normal (unsure of the year). Patient also had two Cardiac cath's done in the past and he reports they said there was no occlusion or blockages found. Will try and obtain records from hospital. - ECHO showed EF 20.3%, left ventricle mildly dilated, mild concentric LVH, systolic function severely imparied, Grade 1-abnormal relaxation pattern, Mitral regurgitation moderate, milde pulmonary hypertension, and a small apical thrombus - cardiology consulted- rec's appreciated.-Continue plavix and lovenox. -Patient expected to undergo cardiac cath either 01/23/17 or 01/24/17 pending improvement in clinical course. -Dietitian eval ordered. Will f/u with rec's. Pulmonary/Infectious Disease Sepsis; Pneumonia - greater than 2/4 SIRS criteria met in setting of infectious source ( elevated WBC and HR > 90) - CXR- showing bibasilar opacity -Blood cx (-)x24 hours, Sputum cultures pending. -Influenza (-). Legionella (-). - Strep pneumonia, Mycoplasma. Will f/u with results. - levaquin and zosyn given in ED, Continue doxycycline and Cefepime for CAP coverage. - infectious disease consulted. Rec's appreciated. -Coninue Robutussin .Continue Nasal saline spray. Nephrology MARY - BUN and creatinine noted and appreciated - likely 2/2 hypertensive state - no IVF at this time in the setting of the hypertension. Will continue to monitor Electrolyte Abnormality - hypokalemia- repleted. - magnesium repleted. -Will continue to monitor and replete as necessary with serial cmp's. Prophylaxis - DVT ppx- patient is on lovenox - GI ppx- famotidine <Rangasamy,Ajantha - Last Filed: 01/24/17 12:43> Objective - Vital Signs/Intake and Output Vital Signs (last 24 hours): Temp Pulse Resp BP Pulse Ox 99 F 95 H 20 182/126 H 100 01/24/17 06:00 01/24/17 10:00 01/24/17 06:00 01/24/17 09:51 01/24/17 06:00 Intake and Output: 01/24/17 01/24/17 06:59 18:59 Intake Total 0 Output Total 0 Balance 0 - Medications Medications: Current Medications Acetaminophen (Tylenol 325mg Tab) 650 mg PO Q4 PRN PRN Reason: Pain, moderate (4-7) Last Admin: 01/23/17 10:22 Dose: 650 mg Acetylcysteine (Acetylcysteine 20%) 6 ml PO Q12H REPLACED BY [facility] Last Admin: 01/23/17 19:30 Dose: 6 ml Albuterol/Ipratropium (Duoneb 3 Mg/0.5 Mg (3 Ml) Ud) 3 ml IH [id number] PRN PRN Reason: Cough and congestion Alprazolam (Xanax) 0.5 mg PO BID PRN; Protocol PRN Reason: Anxiety Last Admin: 01/22/17 09:51 Dose: 0.5 mg Aspirin (Ecotrin) 81 mg PO DAILY REPLACED BY [facility] Last Admin: 01/24/17 09:32 Dose: 81 mg Atorvastatin Calcium (Lipitor) 40 mg PO DIN REPLACED BY [facility] Last Admin: 01/23/17 20:25 Dose: 40 mg Benzonatate (Tessalon Perles) 100 mg PO TID PRN PRN Reason: Cough Last Admin: 01/23/17 10:08 Dose: 100 mg Carvedilol (Coreg) 25 mg PO BID REPLACED BY [facility] Clopidogrel Bisulfate (Plavix) 75 mg PO DAILY REPLACED BY [facility] Last Admin: 01/24/17 09:31 Dose: 75 mg Diltiazem HCl (Cardizem Cd) 180 mg PO DAILY REPLACED BY [facility] Last Admin: 01/23/17 10:06 Dose: 180 mg Doxycycline Hyclate (Doryx) 100 mg PO Q12 [place] PRN Reason: Protocol Last Admin: 01/24/17 09:31 Dose: 100 mg Famotidine (Pepcid) 20 mg PO DAILY REPLACED BY [facility] Last Admin: 01/24/17 09:31 Dose: 20 mg Hydralazine HCl (Apresoline) 25 mg PO Q8H REPLACED BY [facility] Last Admin: 01/24/17 09:51 Dose: 25 mg Cefepime HCl (Maxipime 2gm) 2 gm in 100 mls @ 100 mls/hr IVPB Q12 [facility] PRN Reason: Protocol Stop: 01/26/17 10:01 Last Admin: 01/24/17 09:07 Dose: 100 mls/hr Isosorbide Mononitrate (Imdur) 60 mg PO DAILY REPLACED BY [facility] Last Admin: 01/24/17 09:31 Dose: 60 mg Levalbuterol HCl (Xopenex) 1.25 mg IH [id number] REPLACED BY [facility] Last Admin: 01/24/17 08:34 Dose: 1.25 mg Promethazine HCl/Codeine (Phenergan/Codeine Oral Syrup) 5 ml PO Q4H PRN PRN Reason: Cough and congestion Last Admin: 01/22/17 23:47 Dose: 5 ml Sodium Chloride ([place] Nasal [place]) 0 ml NS Q4H PRN PRN Reason: Nasal congestion Last Admin: 01/21/17 15:55 Dose: 2 sprays Spironolactone (Aldactone) 25 mg PO BID REPLACED BY [facility] Last Admin: 01/23/17 17:50 Dose: 25 mg - Labs Labs: 01/24/17 06:30 01/24/17 06:30 PT 12.1 SECONDS (9.4-12.5) 01/20/17 19:00 INR 1.11 (0.93-1.08) H 01/20/17 19:00 APTT 28.5 Seconds (25.1-36.5) 01/20/17 19:00 Attending/Attestation - Attestation I have personally seen and examined this patient.: Yes I have fully participated in the care of the patient.: Yes I have reviewed all pertinent clinical information, including history, physical exam and plan: Yes Notes (Text): 01/24/17 12:40 attending note; Patient seen and examined with resident. Patient is a 46-year-old male with a past medical history of hypertension, noncompliance with follow-up, asthma was admitted with cough and shortness of breath, nasal congestion and hypertensive emergency. Hypertensive emergency; treated with IV Nicardipine drip. still with high blood pressure. started on by mouth Coreg, Imdur, hydralazine and Aldactone. Chest x-ray showed bibasilar opacities. Currently on doxycycline and cefepime. ID evaluation appreciated. continue DuoNeb treatment. Positive troponin; secondary to hypertensive Emergency/demand ischemia. medications adjusted by cardiology. Continue aspirin, Plavix and Lovenox. Cardiology evaluation with Dr. Velez appreciated. echocardiogram showed ejection fraction 20%. Plan for cardiac cath in few days. Hypokalemia; continue IV supplementation. renin and aldosterone level ordered. possible hyperaldosteronism. The diagnosis, treatment option explained to the patient in detail. caser up evaluation requested for discharge planning. Upon discharge the patient will follow up with PMD of choice.
[2017-01-23 17:02] LABS: BLOOD UREA NITROGEN 20 mg/dL (7-21); CALCIUM 9.1 mg/dL (8.4-10.5); CARBON DIOXIDE 23 mmol/L (21-33); CHLORIDE 103 mmol/L (98-107); GFR AFRICAN-AMERICAN > 60; GLUCOSE,RANDOM 126 mg/dL (70-110); POTASSIUM 3.1 mmol/L (3.6-5.0); SODIUM 140 mmol/L (132-148)
[2017-01-23] MEDS: Acetylcysteine 20% Inhal Soln (4ml) PO SCH (19:30)
[2017-01-23] MEDS ORDERED: Sodium Chloride 0.9% 500 ML IV SCH (22:00)
[2017-01-23] MEDS ORDERED: Sodium Chloride 0.9% 1,000 ML IV SCH (22:24)
[2017-01-24] MEDS ORDERED: Metoprolol 1 mg/ml Inj IVP ONE ×3 (00:26→04:50)
[2017-01-24] MEDS: Levalbuterol 1.25 MG/3 ML Inhal Soln UD IH SCH ×4 (01:23→20:52)
[2017-01-24 06:53] LABS: BASO # 0.04 K/mm3 (0.0-2.0); BASO % 0.4 % (0.0-3.0); EOS # 0.2 (0.0-0.7); EOS % 2.2 % (1.5-5.0); GRAN % 65.5 % (50.0-68.0); LYMPH # 2.2 (1.2-3.4); MEAN CELL VOLUME 81.6 fl (80.0-105.0); MEAN CORPUSCULAR HEMOGLOBIN 27.7 pg (25.0-35.0); MEAN CORPUSCULAR HGB CONC 33.9 g/dl (31.0-37.0); MONO # 0.9 (0.1-0.6); MONO % 8.9 % (1.0-6.0); PLATELET COUNT 150 10^3/uL (120.0-450.0); RED CELL DISTRIBUTION WIDTH 15.2 % (11.5-14.5); WHITE BLOOD COUNT 9.8 10^3/ul (4.5-11.0)
[2017-01-24 07:17] LABS: ALB/GLOB RATIO 1.1 (1.1-1.8); ALKALINE PHOSPHATASE 80 U/L (38-126); ALT/SGPT 34 U/L (7-56); AST/SGOT 31 U/L (17-59); BILIRUBIN,TOTAL 0.7 mg/dL (0.2-1.3); BLOOD UREA NITROGEN 21 mg/dL (7-21); CALCIUM 9.2 mg/dL (8.4-10.5); CARBON DIOXIDE 22 mmol/L (21-33); CHLORIDE 109 mmol/L (98-107); GFR AFRICAN-AMERICAN > 60; GLUCOSE,RANDOM 101 mg/dL (70-110); POTASSIUM 3.9 mmol/L (3.6-5.0); SODIUM 141 mmol/L (132-148)
--- NOTE | 2017-01-24 08:42 | CP.PCM.PN ---
Subjective - Date & Time of Evaluation Date of Evaluation: 01/24/17 Time of Evaluation: 08:37 - Subjective Subjective: PG2 progress note for nephrology, Dr. Nix Pt is seen and examined at bedside. No acute events overnight. Pt transferred out of ICU overnight. Denies having any CP, SOB, abd pain, N/V/D/C. Objective - Vital Signs/Intake and Output Vital Signs (last 24 hours): Temp Pulse Resp BP Pulse Ox 99 F 92 H 20 145/104 H 100 01/24/17 06:00 01/24/17 06:00 01/24/17 06:00 01/24/17 06:30 01/24/17 06:00 Intake and Output: 01/24/17 01/24/17 06:59 18:59 Intake Total 0 Output Total 0 Balance 0 - Medications Medications: Current Medications Acetaminophen (Tylenol 325mg Tab) 650 mg PO Q4 PRN PRN Reason: Pain, moderate (4-7) Last Admin: 01/23/17 10:22 Dose: 650 mg Acetylcysteine (Acetylcysteine 20%) 6 ml PO Q12H [facility] Last Admin: 01/23/17 19:30 Dose: 6 ml Albuterol/Ipratropium (Duoneb 3 Mg/0.5 Mg (3 Ml) Ud) 3 ml IH [id number] PRN PRN Reason: Cough and congestion Alprazolam (Xanax) 0.5 mg PO BID PRN; Protocol PRN Reason: Anxiety Last Admin: 01/22/17 09:51 Dose: 0.5 mg Aspirin (Ecotrin) 81 mg PO DAILY [facility] Last Admin: 01/23/17 09:59 Dose: 81 mg Atorvastatin Calcium (Lipitor) 40 mg PO DIN [facility] Last Admin: 01/23/17 20:25 Dose: 40 mg Benzonatate (Tessalon Perles) 100 mg PO TID PRN PRN Reason: Cough Last Admin: 01/23/17 10:08 Dose: 100 mg Carvedilol (Coreg) 12.5 mg PO BID [facility] Last Admin: 01/23/17 18:00 Dose: 12.5 mg Clopidogrel Bisulfate (Plavix) 75 mg PO DAILY [facility] Last Admin: 01/23/17 15:09 Dose: 75 mg Diltiazem HCl (Cardizem Cd) 180 mg PO DAILY [facility] Last Admin: 01/23/17 10:06 Dose: 180 mg Doxycycline Hyclate (Doryx) 100 mg PO Q12 [place] PRN Reason: Protocol Last Admin: 01/23/17 22:40 Dose: 100 mg Famotidine (Pepcid) 20 mg PO DAILY [facility] Last Admin: 01/23/17 10:06 Dose: 20 mg Hydralazine HCl (Apresoline) 25 mg PO Q8H [facility] Last Admin: 01/24/17 02:42 Dose: 25 mg Cefepime HCl (Maxipime 2gm) 2 gm in 100 mls @ 100 mls/hr IVPB Q12 [facility] PRN Reason: Protocol Stop: 01/26/17 10:01 Last Admin: 01/23/17 22:37 Dose: 100 mls/hr Isosorbide Mononitrate (Imdur) 60 mg PO DAILY [facility] Last Admin: 01/23/17 10:01 Dose: 60 mg Levalbuterol HCl (Xopenex) 1.25 mg IH [id number] [facility] Last Admin: 01/24/17 01:23 Dose: 1.25 mg Promethazine HCl/Codeine (Phenergan/Codeine Oral Syrup) 5 ml PO Q4H PRN PRN Reason: Cough and congestion Last Admin: 01/22/17 23:47 Dose: 5 ml Sodium Chloride ([place] Nasal [place]) 0 ml NS Q4H PRN PRN Reason: Nasal congestion Last Admin: 01/21/17 15:55 Dose: 2 sprays Spironolactone (Aldactone) 25 mg PO BID [facility] Last Admin: 01/23/17 17:50 Dose: 25 mg - Labs Labs: 01/24/17 06:30 01/24/17 06:30 PT 12.1 SECONDS (9.4-12.5) 01/20/17 19:00 INR 1.11 (0.93-1.08) H 01/20/17 19:00 APTT 28.5 Seconds (25.1-36.5) 01/20/17 19:00 - Constitutional Appears: Non-toxic, No Acute Distress - Head Exam Head Exam: ATRAUMATIC - ENT Exam ENT Exam: Mucous Membranes Moist - Respiratory Exam Respiratory Exam: Clear to Ausculation Bilateral, NORMAL BREATHING PATTERN. absent: Accessory Muscle Use, Rales, Rhonchi, Wheezes, Respiratory Distress - Cardiovascular Exam Cardiovascular Exam: REGULAR RHYTHM, +S1, +S2. absent: Gallop, Rubs, Murmur - GI/Abdominal Exam GI & Abdominal Exam: Soft, Normal Bowel Sounds. absent: Distended, Firm, Guarding, Rigid, Tenderness - Extremities Exam Extremities Exam: absent: Pedal Edema, Tenderness - Neurological Exam Neurological Exam: Alert, Awake, Oriented x3 - Psychiatric Exam Psychiatric exam: Normal Affect, Normal Mood - Skin Skin Exam: Dry, Intact, Normal Color, Warm Assessment and Plan - Assessment and Plan (Free Text) Assessment: 46 year old male with past medical history of HTN and CAD presented to HTN emergency. 1. HTN Emergency - resolving - Patient is also started on Coreg 12.5 mg PO BID, Imdur 60 mg PO QD, hydralazine 25 mg po q8 - Need to evaluate patient for possible secondary causes of HTN. Renal artery duplex done. results pending. Aldosterone/Renin pending. Will consider ordering urine metanepharines with 24 hour urine 2. Acute decompensation heart failure - Echo shows EF of 20%, global hypokenesis, Grade I diastolic dysfunction, mod MR and pulmn HTN - CXR pending for today - Cardiac cath today to evaluate for ischemic cardiomyopathy 3. CAD with elevated troponins - Cardiology is consulted. - Pt is started on Lovenox therapeutic dose, Plavix 75 mg po qd, Aspirin and Lipitor 4. Sepsis - Negative blood cultures and MRSA culture - Currently on Doxy and meropenem - Negative procalcitonin x2 - Seeing as pt is in decompensated CHF, will hold IVF All rec and orders per Dr. Nix
[2017-01-24] MEDS: Cefepime IV 2 gm in NS 2 GM/100 ML BAG IVPB SCH ×2 (09:07→22:42)
--- NOTE | 2017-01-24 09:43 | RAD ---
HISTORY: follow up COMPARISON: 01/23/2017 FINDINGS: LUNGS: There is improvement in the vascular congestion and bilateral infiltrates PLEURA: No significant pleural effusion identified, no pneumothorax apparent. CARDIOVASCULAR: Normal. OSSEOUS STRUCTURES: No significant abnormalities. VISUALIZED UPPER ABDOMEN: Normal. OTHER FINDINGS: None. IMPRESSION: Improved vascular congestion and bilateral infiltrates
[2017-01-24] MEDS ORDERED: HEPARIN SODIUM/NS 1,000 ML IV ONE (11:06)
[2017-01-24] MEDS ORDERED: Lidocaine 2% Inj (20ml) ONE (11:12)
[2017-01-24] MEDS ORDERED: Nitroglycerin 50mg in D5W 50 MG/250 ML BOTTLE IV ONE (11:13)
[2017-01-24] MEDS ORDERED: Iodixanol 320 MG/ML 100 ML BOTTLE IV ONE (11:19)
[2017-01-24] MEDS ORDERED: Iodixanol 320 MG/ML 200 ML BOTTLE IV ONE (11:19)
[2017-01-24] MEDS ORDERED: Midazolam 2 MG/2 ML VIAL ONE (11:20)
--- NOTE | 2017-01-24 11:44 | CP.PCM.PN ---
<Beny Stanley - Last Filed: 01/25/17 16:06> Subjective - Date & Time of Evaluation Date of Evaluation: 01/24/17 Time of Evaluation: 07:42 - Subjective Subjective: Patient seen and examined at bedside. Per nursing no acute events occurred overnight. The patient reports feeling much better after being placed on BIPAP last night. The patient denies any chest pain, lightheadedness, dizziness, chills, nausea ,vomiting, headaches, syncopal episodes, or any other complaints. Objective - Vital Signs/Intake and Output Vital Signs (last 24 hours): Temp Pulse Resp BP Pulse Ox 99 F 95 H 20 182/126 H 100 01/24/17 06:00 01/24/17 10:00 01/24/17 06:00 01/24/17 09:51 01/24/17 06:00 Intake and Output: 01/24/17 01/24/17 06:59 18:59 Intake Total 0 Output Total 0 Balance 0 - Medications Medications: Current Medications Acetaminophen (Tylenol 325mg Tab) 650 mg PO Q4 PRN PRN Reason: Pain, moderate (4-7) Last Admin: 01/23/17 10:22 Dose: 650 mg Acetylcysteine (Acetylcysteine 20%) 6 ml PO Q12H [facility] Last Admin: 01/23/17 19:30 Dose: 6 ml Albuterol/Ipratropium (Duoneb 3 Mg/0.5 Mg (3 Ml) Ud) 3 ml IH [id number] PRN PRN Reason: Cough and congestion Alprazolam (Xanax) 0.5 mg PO BID PRN; Protocol PRN Reason: Anxiety Last Admin: 01/22/17 09:51 Dose: 0.5 mg Aspirin (Ecotrin) 81 mg PO DAILY [facility] Last Admin: 01/24/17 09:32 Dose: 81 mg Atorvastatin Calcium (Lipitor) 40 mg PO DIN [facility] Last Admin: 01/23/17 20:25 Dose: 40 mg Benzonatate (Tessalon Perles) 100 mg PO TID PRN PRN Reason: Cough Last Admin: 01/23/17 10:08 Dose: 100 mg Carvedilol (Coreg) 12.5 mg PO BID [facility] Last Admin: 01/24/17 09:31 Dose: 12.5 mg Clopidogrel Bisulfate (Plavix) 75 mg PO DAILY [facility] Last Admin: 01/24/17 09:31 Dose: 75 mg Diltiazem HCl (Cardizem Cd) 180 mg PO DAILY [facility] Last Admin: 01/23/17 10:06 Dose: 180 mg Doxycycline Hyclate (Doryx) 100 mg PO Q12 [place] PRN Reason: Protocol Last Admin: 01/24/17 09:31 Dose: 100 mg Famotidine (Pepcid) 20 mg PO DAILY [facility] Last Admin: 01/24/17 09:31 Dose: 20 mg Hydralazine HCl (Apresoline) 25 mg PO Q8H [facility] Last Admin: 01/24/17 09:51 Dose: 25 mg Cefepime HCl (Maxipime 2gm) 2 gm in 100 mls @ 100 mls/hr IVPB Q12 [place] PRN Reason: Protocol Stop: 01/26/17 10:01 Last Admin: 01/24/17 09:07 Dose: 100 mls/hr Isosorbide Mononitrate (Imdur) 60 mg PO DAILY [facility] Last Admin: 01/24/17 09:31 Dose: 60 mg Levalbuterol HCl (Xopenex) 1.25 mg IH [id number] [facility] Last Admin: 01/24/17 08:34 Dose: 1.25 mg Promethazine HCl/Codeine (Phenergan/Codeine Oral Syrup) 5 ml PO Q4H PRN PRN Reason: Cough and congestion Last Admin: 01/22/17 23:47 Dose: 5 ml Sodium Chloride ([employer] Nasal [place]) 0 ml NS Q4H PRN PRN Reason: Nasal congestion Last Admin: 01/21/17 15:55 Dose: 2 sprays Spironolactone (Aldactone) 25 mg PO BID [facility] Last Admin: 01/23/17 17:50 Dose: 25 mg - Labs Labs: 01/24/17 06:30 01/24/17 06:30 PT 12.1 SECONDS (9.4-12.5) 01/20/17 19:00 INR 1.11 (0.93-1.08) H 01/20/17 19:00 APTT 28.5 Seconds (25.1-36.5) 01/20/17 19:00 - Head Exam Head Exam: ATRAUMATIC, NORMAL INSPECTION, NORMOCEPHALIC - Eye Exam Eye Exam: EOMI, Normal appearance, PERRL. absent: Periorbital tenderness Pupil Exam: NORMAL ACCOMODATION, PERRL. absent: Irregular, Unequal - ENT Exam ENT Exam: Mucous Membranes Moist, Normal Exam, Normal Oropharynx - Neck Exam Neck Exam: Normal Inspection. absent: Meningismus - Respiratory Exam Respiratory Exam: Clear to Ausculation Bilateral, NORMAL BREATHING PATTERN. absent: Chest Wall Tenderness, Prolonged Expiratory Phase, Respiratory Distress - Cardiovascular Exam Cardiovascular Exam: REGULAR RHYTHM, RRR, +S1, +S2. absent: Gallop, Rubs - GI/Abdominal Exam GI & Abdominal Exam: Soft, Normal Bowel Sounds. absent: Hyperactive Bowel Sounds - Extremities Exam Extremities Exam: Full ROM. absent: Joint Swelling, Pedal Edema, Tenderness - Back Exam Back Exam: NORMAL INSPECTION. absent: CVA tenderness (L), CVA tenderness (R), paraspinal tenderness - Neurological Exam Neurological Exam: Alert, Awake, CN II-XII Intact, Normal Gait, Oriented x3 - Psychiatric Exam Psychiatric exam: Normal Affect, Normal Mood. absent: Anxious, Depressed - Skin Skin Exam: Dry, Intact Assessment and Plan - Assessment and Plan (Free Text) Assessment: Patient is a 46yo male who presents to the emergency department via EMS for evaluation and treatment of nasal congestion, production cough with pleghm which began 2 days ago without any provoking event. Plan: Neurological Headache -AOX3. No cognitive deficits appreciated. - Resolved at this time. Will continue to monitor. - Continue prn tylenol ordered - head CT- no acute intracranial abnormalities Cardiology Hypertensive Emergency -BP elevated at 150/115 upon examination today. Will continue to monitor. -Patient states he was only on Norvasc in [place] per the . -Serum aldosterone ordered. Will f/u with results. Chest Pain - rule out ACS - EKG reviewed and appreciated - t wave inversions in the lateral leads - cardiac enzymes q8h x 3, Troponins: .14, .17, .13- as per ED physician Dr. Velez was contacted to review patient EKG- the abnormality in the precordial leads is secondary to ventricular strain in the setting of sepsis. Will continue to monitor closely. - lipid profile: Triglycerides: 154, Cholesterol: 156, LDL: 117, and HDL :34 -Patient states he had an ECHO done in the past that was normal (unsure of the year). Patient also had two Cardiac cath's done in the past and he reports they said there was no occlusion or blockages found. Will try and obtain records from hospital. - ECHO showed EF 20.3%, left ventricle mildly dilated, mild concentric LVH, systolic function severely imparied, Grade 1-abnormal relaxation pattern, Mitral regurgitation moderate, milde pulmonary hypertension, and a small apical thrombus - cardiology consulted- rec's appreciated.-Continue plavix and lovenox. -Patient expected to undergo cardiac cath either today at 11 a.m. Pulmonary/Infectious Disease Sepsis; Pneumonia - greater than 2/4 SIRS criteria met in setting of infectious source ( elevated WBC and HR > 90) - CXR- showing bibasilar opacity -Blood cx (-)x24 hours, Sputum cultures pending. -Influenza (-). Legionella (-). - Mycoplasma pneumonia IgG elevated at 4.65. - levaquin and zosyn given in ED, Continue doxycycline and Cefepime for CAP coverage. - infectious disease consulted. Rec's appreciated. -Chiqui Vu .Continue Nasal saline spray. Nephrology MARY - BUN and creatinine noted and appreciated - likely 2/2 hypertensive state - no IVF at this time in the setting of the hypertension. Will continue to monitor Electrolyte Abnormality - hypokalemia- repleted. - magnesium repleted. -Will continue to monitor and replete as necessary with serial cmp's. Prophylaxis - DVT ppx- patient is on lovenox - GI ppx- famotidine <Elen Jaquez - Last Filed: 01/25/17 17:15> Objective - Vital Signs/Intake and Output Vital Signs (last 24 hours): Temp Pulse Resp BP Pulse Ox 97.5 F L 99 H 20 149/96 H 96 01/25/17 11:41 01/25/17 14:00 01/25/17 11:41 01/25/17 14:25 01/25/17 00:01 Intake and Output: 01/25/17 01/25/17 06:59 18:59 Intake Total 360 Output Total 600 Balance -240 - Medications Medications: Current Medications Acetaminophen (Tylenol 325mg Tab) 650 mg PO Q4 PRN PRN Reason: Pain, moderate (4-7) Last Admin: 01/24/17 14:43 Dose: 650 mg Acetylcysteine (Acetylcysteine 20%) 6 ml PO Q12H [facility] Last Admin: 01/25/17 10:52 Dose: 6 ml Albuterol/Ipratropium (Duoneb 3 Mg/0.5 Mg (3 Ml) Ud) 3 ml IH [id number] PRN PRN Reason: Cough and congestion Alprazolam (Xanax) 0.5 mg PO BID PRN; Protocol PRN Reason: Anxiety Last Admin: 01/22/17 09:51 Dose: 0.5 mg Aspirin (Ecotrin) 81 mg PO DAILY [facility] Last Admin: 01/25/17 10:49 Dose: 81 mg Atorvastatin Calcium (Lipitor) 40 mg PO DIN [facility] Last Admin: 01/24/17 18:04 Dose: 40 mg Benzonatate (Tessalon Perles) 100 mg PO TID PRN PRN Reason: Cough Last Admin: 01/23/17 10:08 Dose: 100 mg Carvedilol (Coreg) 25 mg PO BID [facility] Last Admin: 01/25/17 10:49 Dose: 25 mg Digoxin (Lanoxin) 0.25 mg PO 1400 [facility] Last Admin: 01/25/17 14:25 Dose: 0.25 mg Diltiazem HCl (Cardizem Cd) 180 mg PO DAILY [facility] Last Admin: 01/25/17 10:50 Dose: 180 mg Doxycycline Hyclate (Doryx) 100 mg PO Q12 [place] PRN Reason: Protocol Last Admin: 01/25/17 10:48 Dose: 100 mg Famotidine (Pepcid) 20 mg PO DAILY [facility] Last Admin: 01/25/17 10:49 Dose: 20 mg Furosemide (Lasix) 40 mg PO DAILY [facility] Hydralazine HCl (Apresoline) 50 mg PO BID [facility] Last Admin: 01/25/17 10:48 Dose: 50 mg Isosorbide Mononitrate (Imdur) 60 mg PO DAILY [facility] Last Admin: 01/25/17 10:49 Dose: 60 mg Levalbuterol HCl (Xopenex) 1.25 mg IH [id number] [facility] Last Admin: 01/25/17 13:33 Dose: Not Given Promethazine HCl/Codeine (Phenergan/Codeine Oral Syrup) 5 ml PO Q4H PRN PRN Reason: Cough and congestion Last Admin: 01/22/17 23:47 Dose: 5 ml Sodium Chloride ([employer] Nasal [place]) 0 ml NS Q4H PRN PRN Reason: Nasal congestion Last Admin: 01/21/17 15:55 Dose: 2 sprays Spironolactone (Aldactone) 50 mg PO BID [facility] Last Admin: 01/25/17 10:49 Dose: 50 mg - Labs Labs: 01/25/17 06:00 01/25/17 13:00 PT 12.1 SECONDS (9.4-12.5) 01/20/17 19:00 INR 1.11 (0.93-1.08) H 01/20/17 19:00 APTT 28.5 Seconds (25.1-36.5) 01/20/17 19:00 Attending/Attestation - Attestation I have personally seen and examined this patient.: Yes I have fully participated in the care of the patient.: Yes I have reviewed all pertinent clinical information, including history, physical exam and plan: Yes Notes (Text): 01/25/17 17:12 attending note; Patient seen and examined with resident. Patient is a 46-year-old male with a past medical history of hypertension, noncompliance with follow-up, asthma was admitted with cough and shortness of breath, nasal congestion and hypertensive emergency. Hypertensive emergency; treated with IV Nicardipine drip. blood pressure is better controlled. started on by mouth Coreg, Imdur, hydralazine and Aldactone. Chest x-ray showed bibasilar opacities. Currently on doxycycline and cefepime. ID evaluation appreciated. continue DuoNeb treatment. Positive troponin; secondary to hypertensive Emergency/demand ischemia. medications adjusted by cardiology. Continue aspirin, Plavix . status post cardiac cath today. Normal coronaries. Ejection fraction of 30-35%. Might need AICD placement if ejection fraction does not improve after 3 months of medical management. Renal duplex showed normal bilateral renal arteries. Hypokalemia; continue IV supplementation. renin and aldosterone level is pending. possible hyperaldosteronism. Continue Aldactone. The diagnosis, treatment option explained to the patient in detail. patient lives in [place]. planning to go back this weekend. Copies of all records will be given. Medications to bedside. 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 strongly advised to follow-up with cardiology within few days after reaching [place]. Upon discharge the patient will follow up with PMD of choice.
--- NOTE | 2017-01-24 11:54 | US ---
PROCEDURE: Bilateral renal artery duplex ultrasound. CLINICAL HISTORY: Renal artery stenosis. Uncontrolled hypertension. Evaluate for renovascular hypertension. PHYSICIAN(S): Aidan Funez M.D. TECHNIQUE: Duplex sonography with color-flow Doppler was used to evaluate the visualized segments of the main renal arteries. The patient was evaluated in a fasting state. Imaging in a supine and decubitus position was performed. Limited evaluation of the arcuate waveforms and resistive indices were performed. FINDINGS: The overall quality of the study is adequate. The kidneys are normal in size, shape, and location. The right kidney measures 10.5cm in length and the left kidney measures 12.5cm in length. No solid renal masses, abnormal calcifications, or hydronephrosis is seen. The renal parenchyma is normal in thickness but may be slightly echogenic The main right renal artery is well visualized from the aorta to the hilum. The peak systolic velocity in the right main renal artery is 82 cm/sec. This is consistent with a 0 to 49% stenosis in the main right renal artery. The arcuate waveforms are normal. The resistive index is normal. The main left renal artery is also well seen from its origin to the renal hilum. The peak systolic velocity in the main left renal artery is 84cm/sec. This corresponds to a 0 to 49% stenosis in the main left renal artery. The arcuate waveforms and resistive indices are normal. IMPRESSION: 1. The main renal arteries are fairly well visualized. 2. No sonographically significant stenosis is identified. 3. The kidneys are normal and symmetric in size. There are no solid renal masses, abnormal calcifications or hydronephrosis noted. Renal parenchyma may be slightly echogenic
[2017-01-24] MEDS ORDERED: Bacitracin 500 Units/gm Oint Foilpak UD TOP ONE (12:58)
[2017-01-24] MEDS ORDERED: Sodium Chloride 0.9% 1,000 ML IV SCH (13:00)
--- NOTE | 2017-01-24 14:47 | PN ---
DATE: 01/24/2017 REASON FOR CONSULTATION AND FOLLOWUP: Cardiac evaluation, rule out non-STEMI. SUBJECTIVE: The patient denies any chest pain, shortness of breath, or any palpitation. OBJECTIVE: GENERAL: Not in apparent distress. VITAL SIGNS: Temperature afebrile, heart rate 95, and blood pressure 182/102. HEENT: PERRLA intact. NECK: Supple. No carotid bruits or thyromegaly. CHEST: Clear to auscultation. HEART: S1 and S2 regular. ABDOMEN: Soft. EXTREMITIES: Clubbing and cyanosis negative. LABORATORY DATA: Blood workup as follows; WBC 9.8, hemoglobin 12.2, hematocrit 36, and platelet count 150. Chemistry shows sodium 141, potassium 3.9, chloride 109, carbon dioxide 22, anion gap of 15, BUN 21, and creatinine 1.4. Echo revealed diffuse hypokinesis, thick papillary muscles that probably rather suspicious for apical thrombus, no definite thrombus noted. IMPRESSION: Uncontrolled hypertension. Echo finding as above, no definite thrombus noted. Cardiomyopathy probably related to hypertension, cannot rule out underlying coronary artery disease, and community-acquired pneumonia. RECOMMENDATION: We will do the cardiac catheterization. Continue aspirin. Continue Plavix. Risks, benefits and alternatives discussed with the patient. The patient agreed to proceed with cardiac catheterization. We will continue spironolactone. Continue hydralazine. Continue Cardizem CD 180 mg. We will increase Coreg to 25 mg b.i.d. and increase hydralazine to 50 mg b.i.d., and the patient is ALLERGIC TO KELIN INHIBITOR. Further recommendations after cardiac catheterization. We will follow with you. Thank you Dr. Jaquez for providing us the opportunity in taking care of the patient. We will follow with you. Rhea Velez MD
[2017-01-24] MEDS ORDERED: Oxycodone/Acetaminophen 5/325 mg Tab PO STA (15:23)
[2017-01-24] MEDS ORDERED: Bacitracin 500 Units/gm Oint Foilpak UD ONE (16:24)
--- NOTE | 2017-01-24 16:42 | PN ---
DATE: 01/24/2017 REASON FOR DICTATION: The patient underwent cardiac catheterization that revealed normal coronaries, decreased ejection fraction of 30% to 35%, nonischemic cardiomyopathy. No thrombus noted. RECOMMENDATION: We will increase Coreg to 25 b.i.d., increase hydralazine to 50 b.i.d., and add Lasix. The patient is ALLERGIC TO KELIN FOR ANGIOEDEMA, so we will not give KELIN and ARB. Optimize medical treatment and reassess LV function in 3 to 6 months. If LV function remains below 35, consider AICD. Discussed with the patient in length. We will follow with you. Thank you Dr. Jaquez for providing me the opportunity in taking care of Toby Jiménez. Rhea Velez MD
--- NOTE | 2017-01-24 16:53 | CARD ---
APPROVED REPORT Procedure(s) performed: Left Heart Catheterization HISTORY The patient is a 46 year-old male with a history of : chronic lung disease, previous diagnostic cath, tobacco history() : The patient is a former smoker , hypertension , Admitted with severe SOB, pneumonia, positive troponin possible NSTEMI/ACS, decrerase LV Fx by Echo. after being stablized in ICU cardiac cath was done to R/o significant CAD and etiology for CMP. INDICATION The indication(s) include : non-STEMI , chest pain, dyspnea. CASE TECHNIQUE The patient was brought urgently to the Cardiac Catheterization Laboratory in a fasting state and was prepped and draped in a sterile manner. The left wrist was infiltrated with 2% Lidocaine subcutaneous anesthesia. A 6FR GLIDESHEATH ACCESS KIT sheath was inserted into the left radial artery without difficulty. Coronary angiography was performed using coronary diagnostic catheters. The left coronary system was accessed and visualized with a Diagnostic ,6 Fr JL 4.5 catheter. The right coronary system was accessed and visualized with a Diagnostic ,5 Fr JR 4 catheter. The left ventricle was accessed and visualized with a 5 Fr Pigtail 145 (Angled) catheter. Left ventricular/Aortic Valve gradient assessed on pullback. Left ventriculogram was performed in PÉREZ projection. Closure device was deployed with a Fr TR Band (Large) without any complications. The patient tolerated the procedure well and there were no complications associated with the procedure. Vessel Analysis The patient's coronary anatomy is left dominant. The left main coronary artery is a large size vessel without significant stenosis. The left main trifurcates to the left anterior descending, circumflex, and ramus. The left anterior descending artery is a medium size vessel without significant stenosis. The first diagonal branch is a medium size vessel without significant stenosis. The second diagonal branch is a medium size vessel with intimal irregularities and without significant stenosis. The circumflex artery is a large size vessel without significant stenosis. The first obtuse marginal branch is a medium size vessel with intimal irregularities and without significant stenosis. The second obtuse marginal branch is a medium size vessel without significant stenosis. The left posterior descending artery is a large size vessel without significant stenosis. The ramus intermedius artery is a large size vessel without significant stenosis. The right coronary artery is a medium size vessel without significant stenosis. Left Ventricle The left ventricle is enlarged in size with Moderately decreased contractility. Non-Ischemic cardiomyopathy. The left ventricular ejection fraction is estimated to be 30-35%. The left ventricular end diastolic pressure is 25 mmHg. There was no gradient across the aortic valve upon pullback. Conclusion Normal coronaries Non Ischemic CMP EF-30-35%, EDP-25 mmof Hg. Recommendations Smoking Cessation Aggressive Medical TherapyCardiac Risk Reduction Program Weight Loss Reduction Program Dig, diuretics, coreg, spirolactone , hydrallazine and nitrates No KELIN/ARB ( Pt is allergic to KELIN,gets angioedema) Cc; Dr. Jaquez
[2017-01-24] MEDS: Acetylcysteine 20% Inhal Soln (4ml) PO SCH (18:10)
--- NOTE | 2017-01-24 21:33 | PN ---
DATE: 01/24/2017 SUBJECTIVE: The patient is in bed, in no acute distress, nontoxic. OBJECTIVE: VITAL SIGNS: Temperature is 97, blood pressure is 170/100, and respiratory rate of 16. HEENT: Examination of HEENT is Unremarkable. NECK: Supple. LUNGS: Have decreased breath sounds. HEART: Normal S1 and S2. ABDOMEN: Soft and nontender. LABORATORY DATA: Reveals a white count is 9.8, hemoglobin of 12, platelets of 150. BUN is 21, creatinine of 1.4. Procalcitonin is 0.43. Microbiology reveals the blood cultures are negative and nasal MRSA is not detected. Review of orders reveal the patient to be on doxycycline and cefepime. The patient's last procalcitonin is 0.43. ASSESSMENT AND PLAN: This is a 46-year-old male, seen earlier today in [facility], bed 2, with sepsis, severe community-acquired pneumonia, on cefepime and doxycycline. Cultures negative, procalcitonin is negative, and the patient is doing much better on day #4 of cefepime, we will continue that for 7 days, also on doxycycline. Follow closely with you. Herbert Steven MD
[2017-01-25 02:08] VITALS: O2SAT 96
[2017-01-25] MEDS: Levalbuterol 1.25 MG/3 ML Inhal Soln UD IH SCH ×3 (02:38→13:33)
[2017-01-25 06:35] LABS: BASO # 0.05 K/mm3 (0.0-2.0); BASO % 0.6 % (0.0-3.0); EOS # 0.4 (0.0-0.7); EOS % 4.2 % (1.5-5.0); GRAN # 5.37 (1.4-6.5); GRAN % 59.3 % (50.0-68.0); HEMATOCRIT 36.6 % (42.0-52.0); LYMPH # 2.2 (1.2-3.4); LYMPH % 24.4 % (22.0-35.0); MEAN CELL VOLUME 81.3 fl (80.0-105.0); MEAN CORPUSCULAR HEMOGLOBIN 27.8 pg (25.0-35.0); MEAN CORPUSCULAR HGB CONC 34.2 g/dl (31.0-37.0); MEAN PLATELET VOLUME 12.7 fl (7.0-11.0); MONO % 11.5 % (1.0-6.0); WHITE BLOOD COUNT 9.1 10^3/ul (4.5-11.0)
[2017-01-25 07:00] LABS: ALB/GLOB RATIO 1.1 (1.1-1.8); ALKALINE PHOSPHATASE 75 U/L (38-126); ALT/SGPT 31 U/L (7-56); AST/SGOT 25 U/L (17-59); BILIRUBIN,TOTAL 0.6 mg/dL (0.2-1.3); BLOOD UREA NITROGEN 25 mg/dL (7-21); CALCIUM 9.2 mg/dL (8.4-10.5); CARBON DIOXIDE 22 mmol/L (21-33); CHLORIDE 106 mmol/L (98-107); GFR AFRICAN-AMERICAN > 60; GLUCOSE,RANDOM 101 mg/dL (70-110); POTASSIUM 3.2 mmol/L (3.6-5.0); SODIUM 140 mmol/L (132-148); TOTAL PROTEIN 6.8 g/dL (5.8-8.3)
[2017-01-25] MEDS ORDERED: Sodium Chloride 0.45% 1,000 ML IV SCH (09:15)
[2017-01-25] MEDS ORDERED: Potassium Chloride 40 mEq/30 ml LIQ UD PO STA (10:00)
[2017-01-25] MEDS: diltiaZEM 180 mg/24 Hours CD Cap PO SCH (10:50)
[2017-01-25] MEDS: Acetylcysteine 20% Inhal Soln (4ml) PO SCH (10:52)
--- NOTE | 2017-01-25 12:24 | PN ---
DATE: 01/25/2017 REASON FOR CONSULTATION AND FOLLOWUP: Positive troponin on admission, bilateral pneumonia, cardiac catheterization, nonischemic cardiomyopathy, normal coronary. SUBJECTIVE: The patient denies any chest pain, shortness of breath or any palpitation. She has to go to [place]. OBJECTIVE: GENERAL: Not in any distress. VITAL SIGNS: Temperature afebrile 99.6, heart rate 96, and blood pressure 154/113. HEENT: PERRLA. Extraocular muscles intact. NECK: Supple. No carotid bruits or thyromegaly. CHEST: Clear to auscultation. HEART: S1 and S2 regular. ABDOMEN: Soft. EXTREMITIES: Clubbing and cyanosis negative. LABORATORY DATA: Blood workup as follows; WBC 9.8, hemoglobin 12.2, hematocrit 36.6, and platelet count 159. Chemistry shows sodium 140, potassium 3.2, chloride 100, carbon dioxide 22, anion gap of 15, BUN 25, and creatinine 1.5. IMPRESSION: Uncontrolled hypertension, acute kidney injury possibly secondary to post cath, rule out contrast-induced nephropathy, hypertension uncontrolled, status post nonischemic cardiomyopathy, normal coronaries, pneumonia. RECOMMENDATIONS: We will start gentle hydration. Repeat SMA-7. At 1 o' clock if it remains stable, possibly discharge home. We will hold Lasix and start from tomorrow. Ambulate if the pressure remained stable. Possibly, the patient would be discharged. We will increase Coreg to 25 b.i.d., increase hydralazine 50 t.i.d., and aspirin 81 mg daily, isosorbide 60 mg daily. We will start second line of treatment for heart failure because the patient is ALLERGIC TO KELIN, gets angioedema, so we cannot give KELIN and ARB inhibitor, so start hydralazine and nitrate secondary treatment for the heart failure. Nitrates are being not for the coronary artery disease, it has been given for heart failure treatments. the patient needs to be followed up at [place] and the case will be transferred and follow up with the Cardiology. The patient understood the long-term may need include, continue aggressive treatment for hypertension, reassess LV function in 3 to 6 months, if remain below 35 consider AICD placement. We will hold Lasix today because of worsening renal insufficiency. We will restart Lasix 40 mg p.o. tomorrow, get gentle hydration. Repeat SMA-7 in 2:00 p.m. If continuing to trend down, can be discharged home. Rhea Velez MD
--- NOTE | 2017-01-25 13:06 | PN ---
DATE: 01/25/2017 SUBJECTIVE: The patient is in bed, in no acute distress, nontoxic. PHYSICAL EXAMINATION: VITAL SIGNS: Temperature is 99, blood pressure is 150/113, respiratory rate of 20, heart rate of 95. HEENT: Unremarkable. NECK: Supple. LUNGS: Have decreased breath sounds. HEART: Normal S1, S2. ABDOMEN: Soft, nontender. LABORATORY EXAMINATION: Reveals a white count is 9.1, hemoglobin of 12. Chemistries reveals a BUN of 25, creatinine of 1.5. The patient's procalcitonin is 0.43 from the , he had a negative prior to that and urinalysis is noted and serology is reviewed. Microbiology is noted. Review of orders reveals the patient to be on p.o. doxycycline and IV cefepime. ASSESSMENT AND PLAN: A 46-year-old male who was seen early this morning with sepsis, severe community-acquired pneumonia and cefepime and doxycycline and doing much better. We will complete 7 days of doxycycline, today is day #5 of doxycycline and cefepime. We will discontinue cefepime and complete therapy with p.o. doxycycline. Today is day #5 of both antibiotics, complete doxycycline for 2 more days. We will discontinue cefepime. The patient had a cardiac catheterization by Dr. Velez. Results are noted and appreciated. Herbert Steven MD
[2017-01-25 13:36] LABS: CALCIUM 9.5 mg/dL (8.4-10.5)
[2017-01-25] MEDS ORDERED: Digoxin 250 mcg (0.25 mg) Tab PO SCH (14:00)
[2017-01-25 14:26] VITALS: PULSE 91
--- NOTE | 2017-01-25 16:04 | CP.PCM.DIS ---
<Estuardo Montanez - Last Filed: 01/25/17 17:03> Provider - Provider Date of Admission: 01/20/17 21:57 Attending physician: Elen Jaquez MD Primary care physician: NO PRIMARY CARE PROVIDER Consults: Dr. Velez - Cardio Dr. Lipscomb - ID Dr. Nix - Nephro Time Spent in preparation of Discharge (in minutes): 30 Hospital Course - Lab Results Lab Results: Micro Results 01/21/17 00:45 Nose MRSA Culture (Admit) - Final MRSA NOT DETECTED Most Recent Lab Values WBC 9.1 10^3/ul (4.5-11.0) 01/25/17 06:00 RBC 4.50 10^6/uL (3.5-6.1) 01/25/17 06:00 Hgb 12.5 g/dL (14.0-18.0) L 01/25/17 06:00 Hct 36.6 % (42.0-52.0) L 01/25/17 06:00 MCV 81.3 fl (80.0-105.0) 01/25/17 06:00 MCH 27.8 pg (25.0-35.0) 01/25/17 06:00 MCHC 34.2 g/dl (31.0-37.0) 01/25/17 06:00 RDW 15.0 % (11.5-14.5) H 01/25/17 06:00 Plt Count 159 10^3/uL (120.0-450.0) 01/25/17 06:00 MPV 12.7 fl (7.0-11.0) H 01/25/17 06:00 Gran % 59.3 % (50.0-68.0) 01/25/17 06:00 Lymph % (Auto) 24.4 % (22.0-35.0) 01/25/17 06:00 [place] % (Auto) 11.5 % (1.0-6.0) H 01/25/17 06:00 Eos % (Auto) 4.2 % (1.5-5.0) 01/25/17 06:00 Baso % (Auto) 0.6 % (0.0-3.0) 01/25/17 06:00 Gran # 5.37 (1.4-6.5) 01/25/17 06:00 Lymph # 2.2 (1.2-3.4) 01/25/17 06:00 [place] # 1.0 (0.1-0.6) H 01/25/17 06:00 Eos # 0.4 (0.0-0.7) 01/25/17 06:00 Baso # 0.05 K/mm3 (0.0-2.0) 01/25/17 06:00 PT 12.1 SECONDS (9.4-12.5) 01/20/17 19:00 INR 1.11 (0.93-1.08) H 01/20/17 19:00 APTT 28.5 Seconds (25.1-36.5) 01/20/17 19:00 pO2 224 mm/Hg (30-55) H 01/20/17 23:30 VBG pH 7.49 (7.32-7.43) H 01/20/17 23:30 VBG pCO2 41.0 (40-60) 01/20/17 23:30 VBG HCO3 31.2 mmol/l (21-28) H 01/20/17 23:30 VBG Total CO2 32.5 mmol.L (22-28) H 01/20/17 23:30 VBG O2 Sat (Calc) 100.0 % (40-65) H 01/20/17 23:30 VBG Base Excess 7.2 mmol/L (0.0-2.0) H 01/20/17 23:30 VBG Potassium 2.3 mmol/L (3.6-5.2) L* 01/20/17 23:30 Sodium 138.0 mmol/L (132-148) 01/20/17 23:30 Chloride 102.0 mmol/L (98-107) 01/20/17 23:30 Glucose 114 mg/dl (75-110) H 01/20/17 23:30 Lactate 1.5 mmol/L (0.7-2.1) 01/20/17 23:30 FiO2 21.0 % 01/20/17 23:30 Sodium 138 mmol/L (132-148) 01/25/17 13:00 Potassium 4.0 mmol/L (3.6-5.0) 01/25/17 13:00 Chloride 108 mmol/L (98-107) H 01/25/17 13:00 Carbon Dioxide 20 mmol/L (21-33) L 01/25/17 13:00 Anion Gap 14 (10-20) 01/25/17 13:00 BUN 26 mg/dL (7-21) H 01/25/17 13:00 Creatinine 1.6 mg/dl (0.8-1.5) H 01/25/17 13:00 Est GFR ( Amer) 56 01/25/17 13:00 Est GFR (Non-Af Amer) 47 01/25/17 13:00 Random Glucose 121 mg/dL (70-110) H 01/25/17 13:00 Hemoglobin A1c 5.3 % (4.2-6.5) 01/20/17 19:00 Calcium 9.5 mg/dL (8.4-10.5) 01/25/17 13:00 Phosphorus 3.7 mg/dL (2.5-4.5) 01/23/17 05:15 Magnesium 2.0 mg/dL (1.7-2.2) 01/23/17 05:15 Total Bilirubin 0.6 mg/dL (0.2-1.3) 01/25/17 06:00 AST 25 U/L (17-59) 01/25/17 06:00 ALT 31 U/L (7-56) 01/25/17 06:00 Alkaline Phosphatase 75 U/L (38-126) 01/25/17 06:00 Lactate Dehydrogenase 624 U/L (333-699) 01/21/17 14:15 Total Creatine Kinase 267 U/L (35-230) H 01/21/17 14:15 CK-MB (CK-2) 1.0 ng/mL (0.0-3.6) 01/21/17 14:15 CK-MB (CK-2) % Cancelled 01/20/17 19:00 Troponin I 0.10 ng/mL D 01/21/17 14:15 NT-Pro-B Natriuret Pep 2960 pg/mL (0-450) H 01/20/17 19:00 Total Protein 6.8 g/dL (5.8-8.3) 01/25/17 06:00 Albumin 3.6 g/dL (3.0-4.8) 01/25/17 06:00 Globulin 3.2 gm/dL 01/25/17 06:00 Albumin/Globulin Ratio 1.1 (1.1-1.8) 01/25/17 06:00 Triglycerides 154 mg/dL (35-160) 01/20/17 19:00 Cholesterol 186 mg/dL (130-200) 01/20/17 19:00 LDL Cholesterol Direct 117 mg/dL (0-129) 01/20/17 19:00 HDL Cholesterol 34 mg/dL (29-60) 01/20/17 19:00 Procalcitonin 0.43 NG/ML (0.19-0.49) 01/23/17 07:30 TSH 3rd Generation 0.59 mIU/mL (0.46-4.68) 01/21/17 07:45 Venous Blood Potassium 2.3 mmol/L (3.6-5.2) L* 01/20/17 23:30 Urine Color Light yellow (YELLOW) 01/20/17 19:37 Urine Appearance Clear (CLEAR) 01/20/17 19:37 Urine pH 7.5 (4.7-8.0) 01/20/17 19:37 Ur Specific [place] 1.015 (1.005-1.035) 01/20/17 19:37 Urine Protein 30 mg/dL (<30 mg/dL) H 01/20/17 19:37 Urine Glucose (UA) Negative mg/dL (NEGATIVE) 01/20/17 19:37 Urine Ketones Negative mg/dL (NEGATIVE) 01/20/17 19:37 Urine Blood Trace-lysed (NEGATIVE) H 01/20/17 19:37 Urine Nitrate Negative (NEGATIVE) 01/20/17 19:37 Urine Bilirubin Negative (NEGATIVE) 01/20/17 19:37 Urine Urobilinogen 0.2 E.U./dL (<1 E.U./dL) 01/20/17 19:37 Ur Leukocyte Esterase Negative [place]/uL (NEGATIVE) 01/20/17 19:37 Urine RBC 0 - 2 /hpf (0-2) 01/20/17 19:37 Urine WBC Negative /hpf (0-6) 01/20/17 19:37 Ur Epithelial Cells 0 - 2 /hpf (0-5) 01/20/17 19:37 Urine Bacteria Neg (NEG) 01/20/17 19:37 Urine Opiates Screen Negative (NEGATIVE) 01/21/17 23:03 Urine Methadone Screen Negative (NEGATIVE) 01/21/17 23:03 Ur Barbiturates Screen Negative (NEGATIVE) 01/21/17 23:03 Ur Phencyclidine Scrn Negative (NEGATIVE) 01/21/17 23:03 Ur Amphetamines Screen Negative (NEGATIVE) 01/21/17 23:03 U Benzodiazepines Scrn Negative (NEGATIVE) 01/21/17 23:03 U Oth Cocaine Metabols Negative (NEGATIVE) 01/21/17 23:03 U Cannabinoids Screen Negative (NEGATIVE) 01/21/17 23:03 Hepatitis A IgM Ab Negative (NEGATIVE) 01/22/17 13:15 Hep Bs Antigen Negative (NEGATIVE) 01/22/17 13:15 Hep B Core IgM Ab Negative (NEGATIVE) 01/22/17 13:15 Hepatitis C Antibody Negative (NEGATIVE) 01/22/17 13:15 HIV-1 Antibody TEST NOT PERFORMED 01/21/17 08:00 HIV-2 Antibody TEST NOT PERFORMED 01/21/17 08:00 HIV 1&2 Ag/Ab, 4th Gen Nonreactive (Nonreactive) 01/21/17 08:00 Influenza Typ A,B (EIA) Negative for flu a/b (NEGATIVE) 01/20/17 19:00 Ur L.pneumophila Ag Negative (NEGATIVE) 01/21/17 00:15 Mycoplasma pneumon IgG 4.65 (<=0.90) H 01/21/17 01:15 Mycoplasma pneumon IgM 87 U/mL (<770) 01/21/17 01:15 Pneumocystis Source Serum 01/21/17 01:15 S. pneumoniae Antigen Not detected 01/21/17 01:15 - Hospital Course Hospital Course: Patient is a 46 year old male presented to the ED for nasal congestion and productive cough, which began 2 days ago. He further developed non-radiating chest pain with cough and associated shortness of breath. He further stated that he had a headache, which he has had in the past. Patient was visiting here for work from [place]. He forgot his blood pressure medications at home and has not taken them since arrival. While here, patient was seen by cardio, who decided to do a cardiac cath. The cardiac cath showed normal coronaries, but EF of 30-35%. Pt was recommended to quit smoking, lose weight, and go through a cardiac risk reduction program. Pt's BUN was mildly elevated as well as his creatinine on day of discharge, but it was due to his newly started lasix. Patient was encouraged to improve oral fluid intake before discharge. Discharge Exam - Head Exam Head Exam: ATRAUMATIC, NORMAL INSPECTION, NORMOCEPHALIC - Eye Exam Eye Exam: EOMI, Normal appearance, PERRL Pupil Exam: NORMAL ACCOMODATION, PERRL - Respiratory Exam Respiratory Exam: Clear to PA & Lateral, NORMAL BREATHING PATTERN, UNREMARKABLE. absent: Chest Wall Tenderness, Rales, Rhonchi, Wheezes - Cardiovascular Exam Cardiovascular Exam: REGULAR RHYTHM, +S1, +S2 - GI/Abdominal Exam GI & Abdominal Exam: Normal Bowel Sounds - Back Exam Back exam: FULL ROM, NORMAL INSPECTION. absent: CVA tenderness (L), CVA tenderness (R) - Neurological Exam Neurological exam: Alert, CN II-XII Intact, Normal Gait, Oriented x3, Reflexes Normal - Psychiatric Exam Psychiatric exam: Normal Affect, Normal Mood - Skin Skin Exam: Dry, Intact, Normal Color, Warm Discharge Plan - Discharge Medications Prescriptions: Aspirin [Ecotrin] 81 mg PO DAILY #7 tabec Atorvastatin [Lipitor] 40 mg PO DIN #7 tab Benzonatate [Tessalon Perles] 100 mg PO TID PRN #21 sgl PRN Reason: Cough Carvedilol [Coreg] 25 mg PO BID #14 tab Digoxin 250 mcg PO DAILY #7 tablet diltiaZEM CD [Cardizem CD] 180 mg PO DAILY #7 cap Doxycycline Hyclate [Doryx] 100 mg PO Q12 #4 cap Famotidine [Pepcid] 20 mg PO DAILY #7 tab hydrALAZINE [Apresoline] 50 mg PO BID #14 tab Isosorbide Mononitrate [Imdur] 60 mg PO DAILY #7 tab Potassium Chloride 20 meq PO DAILY #7 tab.er.prt Spironolactone [Aldactone] 50 mg PO BID #14 tab - Follow Up Plan Condition: SERIOUS Disposition: HOME/ ROUTINE Instructions: Coronary Artery Disease (DC), Dilated Cardiomyopathy (DC), How to Stop Smoking (DC), Heart Healthy Diet (DC), Cigarette Smoking and Your Health (GEN), Chronic Hypertension (DC), Bacterial Pneumonia (DC), Low Sodium Diet (DC), Hypertensive Crisis (DC), Heart Catheterization (DC) Additional Instructions: 1. Follow up with PMD in [place] in 3 days. 2. Follow up with Cardiology. take all the reports to PMD/cardiology. Might need AICD if ejection fraction does not improve after 3 months of treatment with medical therapy. 3. Low salt diet. 4. Stop smoking. Stop alcohol use. 5. Follow-up with pulmonary for outpatient sleep study. 6. Follow up creatinine level in 3 to 5 days. Referrals: PCP,NO [Primary Care Provider] - <Elen Jaquez - Last Filed: 01/25/17 17:28> Provider - Provider Date of Admission: 01/20/17 21:57 Attending physician: Elen Jaquez MD Primary care physician: GABE PRIMARY CARE PROVIDER Hospital Course - Lab Results Lab Results: Micro Results 01/21/17 00:45 Nose MRSA Culture (Admit) - Final MRSA NOT DETECTED Most Recent Lab Values WBC 9.1 10^3/ul (4.5-11.0) 01/25/17 06:00 RBC 4.50 10^6/uL (3.5-6.1) 01/25/17 06:00 Hgb 12.5 g/dL (14.0-18.0) L 01/25/17 06:00 Hct 36.6 % (42.0-52.0) L 01/25/17 06:00 MCV 81.3 fl (80.0-105.0) 01/25/17 06:00 MCH 27.8 pg (25.0-35.0) 01/25/17 06:00 MCHC 34.2 g/dl (31.0-37.0) 01/25/17 06:00 RDW 15.0 % (11.5-14.5) H 01/25/17 06:00 Plt Count 159 10^3/uL (120.0-450.0) 01/25/17 06:00 MPV 12.7 fl (7.0-11.0) H 01/25/17 06:00 Gran % 59.3 % (50.0-68.0) 01/25/17 06:00 Lymph % (Auto) 24.4 % (22.0-35.0) 01/25/17 06:00 [place] % (Auto) 11.5 % (1.0-6.0) H 01/25/17 06:00 Eos % (Auto) 4.2 % (1.5-5.0) 01/25/17 06:00 Baso % (Auto) 0.6 % (0.0-3.0) 01/25/17 06:00 Gran # 5.37 (1.4-6.5) 01/25/17 06:00 Lymph # 2.2 (1.2-3.4) 01/25/17 06:00 [place] # 1.0 (0.1-0.6) H 01/25/17 06:00 Eos # 0.4 (0.0-0.7) 01/25/17 06:00 Baso # 0.05 K/mm3 (0.0-2.0) 01/25/17 06:00 PT 12.1 SECONDS (9.4-12.5) 01/20/17 19:00 INR 1.11 (0.93-1.08) H 01/20/17 19:00 APTT 28.5 Seconds (25.1-36.5) 01/20/17 19:00 pO2 224 mm/Hg (30-55) H 01/20/17 23:30 VBG pH 7.49 (7.32-7.43) H 01/20/17 23:30 VBG pCO2 41.0 (40-60) 01/20/17 23:30 VBG HCO3 31.2 mmol/l (21-28) H 01/20/17 23:30 VBG Total CO2 32.5 mmol.L (22-28) H 01/20/17 23:30 VBG O2 Sat (Calc) 100.0 % (40-65) H 01/20/17 23:30 VBG Base Excess 7.2 mmol/L (0.0-2.0) H 01/20/17 23:30 VBG Potassium 2.3 mmol/L (3.6-5.2) L* 01/20/17 23:30 Sodium 138.0 mmol/L (132-148) 01/20/17 23:30 Chloride 102.0 mmol/L (98-107) 01/20/17 23:30 Glucose 114 mg/dl (75-110) H 01/20/17 23:30 Lactate 1.5 mmol/L (0.7-2.1) 01/20/17 23:30 FiO2 21.0 % 01/20/17 23:30 Sodium 138 mmol/L (132-148) 01/25/17 13:00 Potassium 4.0 mmol/L (3.6-5.0) 01/25/17 13:00 Chloride 108 mmol/L (98-107) H 01/25/17 13:00 Carbon Dioxide 20 mmol/L (21-33) L 01/25/17 13:00 Anion Gap 14 (10-20) 01/25/17 13:00 BUN 26 mg/dL (7-21) H 01/25/17 13:00 Creatinine 1.6 mg/dl (0.8-1.5) H 01/25/17 13:00 Est GFR ( Amer) 56 01/25/17 13:00 Est GFR (Non-Af Amer) 47 01/25/17 13:00 Random Glucose 121 mg/dL (70-110) H 01/25/17 13:00 Hemoglobin A1c 5.3 % (4.2-6.5) 01/20/17 19:00 Calcium 9.5 mg/dL (8.4-10.5) 01/25/17 13:00 Phosphorus 3.7 mg/dL (2.5-4.5) 01/23/17 05:15 Magnesium 2.0 mg/dL (1.7-2.2) 01/23/17 05:15 Total Bilirubin 0.6 mg/dL (0.2-1.3) 01/25/17 06:00 AST 25 U/L (17-59) 01/25/17 06:00 ALT 31 U/L (7-56) 01/25/17 06:00 Alkaline Phosphatase 75 U/L (38-126) 01/25/17 06:00 Lactate Dehydrogenase 624 U/L (333-699) 01/21/17 14:15 Total Creatine Kinase 267 U/L (35-230) H 01/21/17 14:15 CK-MB (CK-2) 1.0 ng/mL (0.0-3.6) 01/21/17 14:15 CK-MB (CK-2) % Cancelled 01/20/17 19:00 Troponin I 0.10 ng/mL D 01/21/17 14:15 NT-Pro-B Natriuret Pep 2960 pg/mL (0-450) H 01/20/17 19:00 Total Protein 6.8 g/dL (5.8-8.3) 01/25/17 06:00 Albumin 3.6 g/dL (3.0-4.8) 01/25/17 06:00 Globulin 3.2 gm/dL 01/25/17 06:00 Albumin/Globulin Ratio 1.1 (1.1-1.8) 01/25/17 06:00 Triglycerides 154 mg/dL (35-160) 01/20/17 19:00 Cholesterol 186 mg/dL (130-200) 01/20/17 19:00 LDL Cholesterol Direct 117 mg/dL (0-129) 01/20/17 19:00 HDL Cholesterol 34 mg/dL (29-60) 01/20/17 19:00 Procalcitonin 0.43 NG/ML (0.19-0.49) 01/23/17 07:30 TSH 3rd Generation 0.59 mIU/mL (0.46-4.68) 01/21/17 07:45 Venous Blood Potassium 2.3 mmol/L (3.6-5.2) L* 01/20/17 23:30 Urine Color Light yellow (YELLOW) 01/20/17 19:37 Urine Appearance Clear (CLEAR) 01/20/17 19:37 Urine pH 7.5 (4.7-8.0) 01/20/17 19:37 Ur Specific [place] 1.015 (1.005-1.035) 01/20/17 19:37 Urine Protein 30 mg/dL (<30 mg/dL) H 01/20/17 19:37 Urine Glucose (UA) Negative mg/dL (NEGATIVE) 01/20/17 19:37 Urine Ketones Negative mg/dL (NEGATIVE) 01/20/17 19:37 Urine Blood Trace-lysed (NEGATIVE) H 01/20/17 19:37 Urine Nitrate Negative (NEGATIVE) 01/20/17 19:37 Urine Bilirubin Negative (NEGATIVE) 01/20/17 19:37 Urine Urobilinogen 0.2 E.U./dL (<1 E.U./dL) 01/20/17 19:37 Ur Leukocyte Esterase Negative [place]/uL (NEGATIVE) 01/20/17 19:37 Urine RBC 0 - 2 /hpf (0-2) 01/20/17 19:37 Urine WBC Negative /hpf (0-6) 01/20/17 19:37 Ur Epithelial Cells 0 - 2 /hpf (0-5) 01/20/17 19:37 Urine Bacteria Neg (NEG) 01/20/17 19:37 Urine Opiates Screen Negative (NEGATIVE) 01/21/17 23:03 Urine Methadone Screen Negative (NEGATIVE) 01/21/17 23:03 Ur Barbiturates Screen Negative (NEGATIVE) 01/21/17 23:03 Ur Phencyclidine Scrn Negative (NEGATIVE) 01/21/17 23:03 Ur Amphetamines Screen Negative (NEGATIVE) 01/21/17 23:03 U Benzodiazepines Scrn Negative (NEGATIVE) 01/21/17 23:03 U Oth Cocaine Metabols Negative (NEGATIVE) 01/21/17 23:03 U Cannabinoids Screen Negative (NEGATIVE) 01/21/17 23:03 Hepatitis A IgM Ab Negative (NEGATIVE) 01/22/17 13:15 Hep Bs Antigen Negative (NEGATIVE) 01/22/17 13:15 Hep B Core IgM Ab Negative (NEGATIVE) 01/22/17 13:15 Hepatitis C Antibody Negative (NEGATIVE) 01/22/17 13:15 HIV-1 Antibody TEST NOT PERFORMED 01/21/17 08:00 HIV-2 Antibody TEST NOT PERFORMED 01/21/17 08:00 HIV 1&2 Ag/Ab, 4th Gen Nonreactive (Nonreactive) 01/21/17 08:00 Influenza Typ A,B (EIA) Negative for flu a/b (NEGATIVE) 01/20/17 19:00 Ur L.pneumophila Ag Negative (NEGATIVE) 01/21/17 00:15 Mycoplasma pneumon IgG 4.65 (<=0.90) H 01/21/17 01:15 Mycoplasma pneumon IgM 87 U/mL (<770) 01/21/17 01:15 Pneumocystis Source Serum 01/21/17 01:15 S. pneumoniae Antigen Not detected 01/21/17 01:15 Attending/Attestation - Attestation I have personally seen and examined this patient.: Yes I have fully participated in the care of the patient.: Yes I have reviewed all pertinent clinical information, including history, physical exam and plan: Yes Notes (Text): 01/25/17 17:26 attending note; Patient seen and examined with resident. Patient is a 46-year-old male with a past medical history of hypertension, noncompliance with follow-up, asthma was admitted with cough and shortness of breath, nasal congestion and hypertensive emergency. Hypertensive emergency; treated with IV Nicardipine drip. blood pressure is better controlled. started on by mouth Coreg, Imdur, hydralazine,Cardizem and digoxin and Aldactone. Chest x-ray showed bibasilar opacities. Currently on doxycycline and cefepime. ID evaluation appreciated. continue DuoNeb treatment. Positive troponin; secondary to hypertensive Emergency/demand ischemia. medications adjusted by cardiology. Continue aspirin, Plavix . status post cardiac cath today. Normal coronaries. Ejection fraction of 30-35%. Might need AICD placement if ejection fraction does not improve after 3 months of medical management. Renal duplex showed normal bilateral renal arteries. Hypokalemia; continue IV supplementation. renin and aldosterone level is pending. possible hyperaldosteronism. Continue Aldactone. CKD; baseline creatinine is 1.5. Repeat creatinine is 1.6. Nephrology evaluation appreciated. Patient is advised to follow-up with PMD for repeat BMP checkup next week. The diagnosis, treatment option explained to the patient in detail. patient lives in [place]. planning to go back this weekend. Copies of all records will be given. Medications to bedside. Patient is to follow-up with [employer] operator and PMD before. strongly advised to follow-up with cardiology within few days after reaching [place]. Upon discharge the patient will follow up with PMD of choice. diagnosis; hypertensive emergency Elevated troponin Status post cardiac cath Hypokalemia Chronic kidney disease Cardiomyopathy pneumonia
[2017-01-25 18:00] VITALS: PULSE 86
[2017-01-25 18:15] VITALS: BP 167/109; RESP 16; TEMP 97.2
--- NOTE | 2017-01-25 19:01 | CP.PCM.PN ---
Objective - Vital Signs/Intake and Output Vital Signs (last 24 hours): Temp Pulse Resp BP Pulse Ox 97.2 F L 86 16 167/109 H 96 01/25/17 18:00 01/25/17 18:00 01/25/17 18:00 01/25/17 18:00 01/25/17 00:01 - Labs Labs: 01/25/17 06:00 01/25/17 13:00 PT 12.1 SECONDS (9.4-12.5) 01/20/17 19:00 INR 1.11 (0.93-1.08) H 01/20/17 19:00 APTT 28.5 Seconds (25.1-36.5) 01/20/17 19:00
[2017-01-28 10:49] LABS: ALDO/PRA RATIO 2.4 Ratio (0.9-28.9)
== END 2017-01-25 18:55 | disposition home or self-care (01) | DRG 584 ==
LOC: ED 18:21 → ERH 21:57 → ICU 01-21 00:30 → 2RSO 01-23 18:50
PROVIDERS: ADMIT Internal Medicine; ATTEND Internal Medicine
PROC: 5A09357 Assistance with Respiratory Ventilation, Less than 24 Consecutive Hours, Continuous Positive Airway Pressure (ICD-10-PCS; 2017-01-21)
PROC: 3E0F7GC Introduction of Other Therapeutic Substance into Respiratory Tract, Via Natural or Artificial Opening (ICD-10-PCS; 2017-01-21)
PROC: 4A023N7 Measurement of Cardiac Sampling and Pressure, Left Heart, Percutaneous Approach (ICD-10-PCS; principal; 2017-01-24)
PROC: B211YZZ Fluoroscopy of Multiple Coronary Arteries using Other Contrast (ICD-10-PCS; 2017-01-24)
PROC: B215YZZ Fluoroscopy of Left Heart using Other Contrast (ICD-10-PCS; 2017-01-24)
DX: A41.9 Sepsis, unspecified organism (principal); J18.9 Pneumonia, unspecified organism; N17.9 Acute kidney failure, unspecified; I13.0 Hypertensive heart and chronic kidney disease with heart failure and stage 1 through stage 4 chronic kidney disease, or unspecified chronic kidney disease; I50.9 Heart failure, unspecified; I27.20 Pulmonary hypertension, unspecified; E87.6 Hypokalemia; N18.2 Chronic kidney disease, stage 2 (mild); I42.9 Cardiomyopathy, unspecified; I16.1 Hypertensive emergency; I25.10 Atherosclerotic heart disease of native coronary artery without angina pectoris; R51 Headache; I34.0 Nonrheumatic mitral (valve) insufficiency; J45.909 Unspecified asthma, uncomplicated; Z91.19 Patient's noncompliance with other medical treatment and regimen; Z88.8 Allergy status to other drugs, medicaments and biological substances; Z87.891 Personal history of nicotine dependence